=== PATIENT | female | born 1970 | race Caucasian/White ===

== ENCOUNTER 2018-02-19 21:14 | Emergency (ER) | payer OTHER ==
[~2018-02-19] VITALS: Ht 170.2 cm; Wt 154.2 kg
--- OUTSIDE RECORDS SUMMARY | 2018-02-19 21:20 | XMS REPORT ---
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 Info Not Available Non Drug Allergy Problems Problem Type Condition Code Onset Dates Condition Status Assessment Exercise counseling Z71.89 Active Assessment Hyperlipemia E78.5 Active Assessment Chronic pain G89.29 Active Problem Hyperlipemia E78.5 Active Problem Chronic pain G89.29 Active Problem Morbid obesity E66.01 Active Assessment Morbid obesity E66.01 Active Assessment Viral syndrome B34.9 Active Problem Depression with anxiety F41.8 Active Problem GERD (gastroesophageal reflux disease) K21.9 Active Assessment Fever blister B00.1 Active Assessment Dietary counseling Z71.3 Active Assessment Depression with anxiety F41.8 Active Assessment GERD (gastroesophageal reflux disease) K21.9 Active Assessment Cough R05 Active Medications Medication Code System Code Instructions Start Date End Date Status Dosage Cymbalta [facility] [address]-93 60 mg 1 capsule by Oral route 1 time per day ProAir HFA [facility] [place] [address]-82 108 (90 Base) MCG/ACT Inhalation every 4 hrs Aug 30, 2015 2 puffs as needed Klonopin [facility] [place] [address]-17 0.5 MG Orally Once a day, PRN 1 tablet Omeprazole [facility] [place] [address]-33 40 MG Orally Once a day 1 capsule Simvastatin [facility] [place] [address]-87 20 MG Orally Once a day. March 08, 2015 1 tablet in the evening Ibuprofen [facility] [place] [address]-77 800 MG Orally Three times a day as needed take 1 tablet PredniSONE [facility] [place] [address]-85 20 MG Orally Once a day Aug 30, 2015 Sep 06, 2015 3 tablet with food or milk Celexa [facility] [place] [address]-07 10 MG Orally Once a day 2 tablets Trazodone HCl [facility] [place] [address]-48 50 MG Orally Once a day 1 tablet at bedtime as needed Procedures Procedure Coding System Code Date ASSAY THYROID STIM HORMONE CPT-4 58314 Sep 06, 2015 COMPLETE CBC W/AUTO DIFF WBC CPT-4 19104 Sep 06, 2015 GLYCATED HEMOGLOBIN TEST CPT-4 62595 Sep 06, 2015 LIPID PANEL CPT-4 13913 Sep 06, 2015 COMPREHEN METABOLIC PANEL CPT-4 91818 Sep 06, 2015 Office Visit, Est Pt., Level 3 CPT-4 31764 Sep 06, 2015 VENIPUNCT, ROUTINE* CPT-4 43592 Sep 06, 2015 Vital Signs Date/Time: Sep 06, 2015 Temperature 99 F Weight 362 lbs Height 68 in BMI 55.04 Index Blood Pressure Diastolic 68 mmHg Blood Pressure Systolic 130 mmHg Cardiac Monitoring Heart Rate 82 bpm Results Name Result Date Reference Range Unit Abnormality Flag ROUTINE VENIPUNCTURE Summary Purpose eClinicalWorks Submission
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
--- OUTSIDE RECORDS SUMMARY | 2018-02-19 21:21 | XMS REPORT ---
Author Author AMANDA VASQUEZ [facility] eClinical[employer] Address Unknown Phone Unavailable Care Team Providers Care Recreation Leader Name Role Phone AMANDA VASQUEZ CP Unavailable Allergies, Adverse Reactions, Alerts Substance Reaction Event Type N.K.D.A. Info Not Available Non Drug Allergy Problems Problem Type Condition Code Onset Dates Condition Status Assessment Fever blister B00.1 Active Problem Hyperlipemia E78.5 Active Problem Chronic pain G89.29 Active Problem Morbid obesity E66.01 Active Assessment Viral syndrome B34.9 Active Assessment Cough R05 Active Problem Depression with anxiety F41.8 Active Problem GERD (gastroesophageal reflux disease) K21.9 Active Medications Medication Code System Code Instructions Start Date End Date Status Dosage Simvastatin [facility] [address]-89 20 MG Orally Once a day. March 08, 2015 1 tablet in the evening Omeprazole [facility] [address]-85 40 MG Orally Once a day 1 capsule Celexa [facility] [address]-42 10 MG Orally Once a day 2 tablets Cymbalta [facility] [address]-76 60 mg 1 capsule by Oral route 1 time per day Trazodone HCl [facility] [address]-82 50 MG Orally Once a day 1 tablet at bedtime as needed Ibuprofen [facility] [address]-24 800 MG Orally Three times a day as needed take 1 tablet Klonopin [facility] [address]-66 0.5 MG Orally Once a day, PRN 1 tablet PredniSONE [facility] [address]-11 20 MG Orally Once a day Aug 30, 2015 Sep 06, 2015 3 tablet with food or milk ProAir HFA [facility] [address]-79 108 (90 Base) MCG/ACT Inhalation every 4 hrs Aug 30, 2015 2 puffs as needed Procedures Procedure Coding System Code Date INFLUENZA ASSAY W/OPTIC CPT-4 78614 Aug 30, 2015 Office Visit, Est Pt., Level 3 CPT-4 26272 Aug 30, 2015 MEASURE BLOOD OXYGEN LEVEL CPT-4 70229 Aug 30, 2015 Vital Signs Date/Time: Aug 30, 2015 Temperature 98.6 F Weight 364.8 lbs Height 68 in Oximetry 98 % Blood Pressure Diastolic 78 mmHg Blood Pressure Systolic 122 mmHg Cardiac Monitoring Heart Rate 88 bpm BMI 55.46 Index Results Name Result Date Reference Range Unit Abnormality Flag INFLUENZA A & B (IN HOUSE) Summary Purpose eClinicalWorks Submission
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
--- OUTSIDE RECORDS SUMMARY | 2018-02-19 21:22 | XMS REPORT ---
Author JERICA Fraga [facility] eClinicalWorks Address Unknown Phone Unavailable Care Team Providers Care Drawing Tender Name Role Phone JERICA JACOBS CP Unavailable Allergies, Adverse Reactions, Alerts Substance Reaction Event Type N.K.D.A. Info Not Available Non Drug Allergy Problems Problem Type Condition Code Onset Dates Condition Status Assessment Dehydration E86.0 Active Assessment GERD (gastroesophageal reflux disease) K21.9 Active Assessment Diarrhea R19.7 Active Assessment Hyperlipemia E78.5 Active Problem Morbid obesity E66.01 Active Problem Hyperlipemia E78.5 Active Problem Metabolic syndrome E88.81 Active Problem GERD (gastroesophageal reflux disease) K21.9 Active Assessment Metabolic syndrome E88.81 Active Problem Chronic pain G89.29 Active Problem Depression with anxiety F41.8 Active Medications Medication Code System Code Instructions Start Date End Date Status Dosage Acidophilus [facility] [address]24 100 MG Orally 2 times a day Oct 03, 2015 Oct 08, 2015 as directed MetFORMIN HCl ER (MOD) [facility] [address]-94 500 MG Orally Once a day- week one take one tablet twice daily Oct 03, 2015 2 tablets with evening meal Cymbalta [facility] [address]-90 60 mg 1 capsule by Oral route 1 time per day Celexa [facility] [address]-02 10 MG Orally Once a day 2 tablets Simvastatin [facility] [address]-00 20 MG Orally Once a day. March 08, 2015 1 tablet in the evening Omeprazole [facility] [address]-42 40 MG Orally Once a day 1 capsule Klonopin [facility] [address]-26 0.5 MG Orally Once a day, PRN 1 tablet Trazodone HCl [facility] [address]-78 50 MG Orally Once a day 1 tablet at bedtime as needed Procedures Procedure Coding System Code Date Office Visit, Est Pt., Level 4 CPT-4 28676 Oct 03, 2015 Vital Signs Date/Time: Oct 03, 2015 Temperature 98.5 F Weight 365.4 lbs Height 68 in BMI 55.55 Index Blood Pressure Diastolic 72 mmHg Blood Pressure Systolic 108 mmHg Cardiac Monitoring Heart Rate 104 bpm Results No Known Results Summary Purpose eClinicalWorks Submission
--- OUTSIDE RECORDS SUMMARY | 2018-02-19 21:22 | XMS REPORT ---
Author Author VERONICA INIGUEZ [facility] [place] eClinicalWorks Address Unknown Phone Unavailable Care Team Providers Care Electroplater Apprentice Name Role Phone VERONICA INIGUEZ CP Unavailable Allergies, Adverse Reactions, Alerts Substance Reaction Event Type N.K.D.A. Info Not Available Non Drug Allergy Problems Problem Type Condition ICD-9 Code Onset Dates Condition Status Problem Cystocele without mention of uterine prolapse, midline 618.01 Active Problem Allergic rhinitis, cause unspecified 477.9 Active Problem Headache 784.0 Active Problem Hyperlipidemia 272.4 Active Problem Depression 311 Active Problem Asthma 493.90 Active Problem Unspecified peripheral vertigo 386.10 Active Problem Cervicalgia 723.1 Active Problem GERD (gastroesophageal reflux disease) 530.81 Active Problem Other dyspnea and respiratory abnormalities 786.09 Active Problem Anxiety state, unspecified 300.00 Active Problem Urge incontinence 788.31 Active Assessment Contact dermatitis 692.9 Active Problem Lumbago 724.2 Active Problem Chronic cholecystitis 575.11 Active Problem Unspecified hypertrophic and atrophic condition of skin 701.9 Active Medications Medication Code System Code Instructions Start Date End Date Status Dosage Albuterol Sulfate HFA [facility] [address]-63 108 (90 Base) MCG/ACT Inhalation every 4 hrs March 28, 2015 2 puffs as needed Ibuprofen [facility] [address]-56 800 MG Orally Three times a day as needed take 1 tablet Trazodone HCl [facility] [address]-46 50 MG Orally Once a day 1 tablet at bedtime as needed Albuterol Sulfate [facility] [address]-08 90 mcg/actuation 2 puffs by Inhalation route every 4-6 hours as needed PRN cough or wheezing Omeprazole [facility] [address]-02 40 MG Orally Once a day 1 capsule HydrOXYzine HCl [facility] [address]-12 25 MG Orally every 8 hrs Jul 04, 2015 1-2 tablet as needed Celexa [facility] [address]-31 10 MG Orally Once a day 2 tablets Klonopin [facility] [address]-96 0.5 MG Orally Once a day, PRN 1 tablet Cymbalta [facility] [address]-55 60 mg 1 capsule by Oral route 1 time per day Simvastatin [facility] [address]-17 20 MG Orally Once a day. March 08, 2015 1 tablet in the evening Medrol (Roderick) [facility] [address]-88 4 MG Orally as directed Jul 04, 2015 as directed Procedures Procedure Coding System Code Date Office Visit, Est Pt., Level 3 CPT-4 32980 Jul 04, 2015 Vital Signs Date/Time: Jul 04, 2015 Temperature 98 F Weight 363 lbs Height 68 in BMI 55.19 Index Blood Pressure Diastolic 72 mmHg Blood Pressure Systolic 122 mmHg Cardiac Monitoring Heart Rate 88 bpm Results No Known Results Summary Purpose eClinicalWorks Submission
--- OUTSIDE RECORDS SUMMARY | 2018-02-19 21:22 | XMS REPORT ---
Author GENE Henley [facility] eClinicalWorks Address Unknown Phone Unavailable Care Team Providers Care Importer Or Exporter Name Role Phone GENE VALERIO CP Unavailable Allergies, Adverse Reactions, Alerts Substance Reaction Event Type N.K.D.A. Info Not Available Non Drug Allergy Problems Problem Type Condition Code Onset Dates Condition Status Assessment History of panic attacks Z86.59 Active Problem GERD (gastroesophageal reflux disease) K21.9 Active Assessment Dizziness R42 Active Problem Headache R51 Active Problem Metabolic syndrome E88.81 Active Problem Neck pain M54.2 Active Problem Chronic pain G89.29 Active Problem Depression with anxiety F41.8 Active Problem Morbid obesity E66.01 Active Problem Hyperlipemia E78.5 Active Medications Medication Code System Code Instructions Start Date End Date Status Dosage Cymbalta [facility] [address]-97 60 mg 1 capsule by Oral route 1 time per day Trazodone HCl [facility] [address]-13 50 MG Orally Once a day 0.5 tablet at bedtime as needed Celexa [facility] [address]-95 10 MG Orally Once a day 2 tablets Simvastatin [facility] [address]-84 20 MG Orally Once a day. March 08, 2015 1 tablet in the evening Omeprazole [facility] [address]-09 40 MG Orally Once a day 1 capsule MetFORMIN HCl ER (MOD) [facility] [address]-40 500 MG Orally 2 times a day Sep 2 tablets with evening meal Klonopin [facility] [address]-34 0.5 MG Orally Once a day, PRN 1 tablet Procedures Procedure Coding System Code Date GLUCOSE BLOOD TEST CPT-4 62065 Nov 18, 2015 Office Visit, Est Pt., Level 3 CPT-4 05373 Nov 18, 2015 Vital Signs Date/Time: Nov 18, 2015 Temperature 99.0 F Weight 342.4 lbs Height 68 in BMI 52.06 Index Blood Pressure Diastolic 78 mmHg Blood Pressure Systolic 122 mmHg Cardiac Monitoring Heart Rate 102 bpm Results Name Result Date Reference Range Unit Abnormality Flag GLUCOSE FINGERSTICK (IN HOUSE) ----GLU FINGERSTICK 129 [id number] ----PC no [id number] ----Lot # [id number] ----Exp date 03/10/1620151118 Summary Purpose eClinicalWorks Submission
--- OUTSIDE RECORDS SUMMARY | 2018-02-19 21:23 | XMS REPORT ---
Author Author VERONICA INIGUEZ [facility] eClinicalWorks Address Unknown Phone Unavailable Care Team Providers Care Body Technician/Painter Name Role Phone VERONICA INIGUEZ CP Unavailable [...] Other dyspnea and respiratory abnormalities 786.09 Active Assessment Hyperlipidemia 272.4 Active Problem Anxiety state, unspecified 300.00 Active Problem Urge incontinence 788.31 Active Assessment GERD (gastroesophageal reflux disease) 530.81 Active Problem Lumbago 724.2 Active Problem Chronic cholecystitis 575.11 Active Problem Unspecified hypertrophic and atrophic condition of skin 701.9 Active Medications Medication Code System Code Instructions Start Date End Date Status Dosage Ibuprofen [facility] [address]-83 800 MG Orally Three times a day as needed take 1 tablet Albuterol Sulfate HFA [facility] [address]-74 108 (90 Base) MCG/ACT Inhalation every 4 hrs March 28, 2015 2 puffs as needed Klonopin [facility] [address]-02 0.5 MG Orally Once a day, PRN 1 tablet Trazodone HCl [facility] [address]-52 50 MG Orally Once a day 1 tablet at bedtime as needed Omeprazole [facility] [address]-66 40 MG Orally Once a day 1 capsule Simvastatin [facility] [address]-78 20 MG Orally Once a day. March 08, 2015 1 tablet in the evening Celexa [facility] [address]-15 10 MG Orally Once a day 2 tablets Cymbalta [facility] [address]-22 60 mg 1 capsule by Oral route 1 time per day Albuterol Sulfate [facility] [address]-87 90 mcg/actuation 2 puffs by Inhalation route every 4-6 hours as needed PRN cough or wheezing Procedures Procedure Coding System Code Date Office Visit, Est Pt., Level 3 CPT-4 56080 Jun 30, 2015 Vital Signs Date/Time: Jun 30, 2015 Temperature 98 F Weight 363 lbs Height 68 in BMI 55.19 Index Blood Pressure Diastolic 72 mmHg Blood Pressure Systolic 120 mmHg Cardiac Monitoring Heart Rate 80 bpm Results No Known Results Summary Purpose eClinicalWorks Submission
--- OUTSIDE RECORDS SUMMARY | 2018-02-19 21:23 | XMS REPORT ---
Author JERICA Fraga eClinicalWorks Address Unknown Phone Unavailable Care Team Providers Care Mold Filler And Drainer Name Role Phone JERICA JACOBS CP Unavailable Allergies, Adverse Reactions, Alerts Substance Reaction Event Type N.K.D.A. Info Not Available Non Drug Allergy Problems Problem Type Condition Code Onset Dates Condition Status Assessment Metabolic syndrome E88.81 Active Problem GERD (gastroesophageal reflux disease) K21.9 Active Assessment Neck pain M54.2 Active Assessment Diarrhea R19.7 Active Assessment Headache R51 Active Problem Headache R51 Active Problem Metabolic syndrome E88.81 Active Problem Neck pain M54.2 Active Problem Chronic pain G89.29 Active Problem Depression with anxiety F41.8 Active Problem Morbid obesity E66.01 Active Problem Hyperlipemia E78.5 Active Medications Medication Code System Code Instructions Start Date End Date Status Dosage Ibuprofen [facility] [address]-06 800 MG Orally Three times a day as needed take 1 tablet Simvastatin [facility] [address]-78 20 MG Orally Once a day. March 08, 2015 1 tablet in the evening Trazodone HCl [facility] [address]-47 50 MG Orally Once a day 1 tablet at bedtime as needed Celexa [facility] [address]-35 10 MG Orally Once a day 2 tablets Klonopin [facility] [address]-39 0.5 MG Orally Once a day, PRN 1 tablet Omeprazole [facility] [address]-67 40 MG Orally Once a day 1 capsule MetFORMIN HCl ER (MOD) [facility] [address]-46 500 MG Orally 2 times a day Sep 2 tablets with evening meal Cymbalta [facility] [address]-75 60 mg 1 capsule by Oral route 1 time per day Procedures Procedure Coding System Code Date Office Visit, Est Pt., Level 3 CPT-4 11250 Nov 04, 2015 Vital Signs Date/Time: Nov 04, 2015 Temperature 99.3 F Weight 361.3 lbs Height 68 in BMI 54.93 Index Blood Pressure Diastolic 72 mmHg Blood Pressure Systolic 118 mmHg Cardiac Monitoring Heart Rate 94 bpm Results No Known Results Summary Purpose eClinicalWorks Submission
--- OUTSIDE RECORDS SUMMARY | 2018-02-19 21:23 | XMS REPORT ---
Author Author VERONICA INIGUEZ [facility] Address [address] [place] [address] Care Team Providers Care Attendant Sales Name Role Phone VERONICA INIGUEZ Unavailable PROBLEMS Type Condition ICD9-CM Code TLN40-RC Code Onset Dates Condition Status SNOMED Code Problem Neck pain M54.2 Active 24806951 Problem Myalgia M79.1 Active 39031112 Problem Anxiety associated with depression F41.8 Active 841185092 Problem Intractable migraine with aura without status migrainosus G43.119 Active 715179546 Problem Radiculopathy of lumbar region M54.16 Active 246567176 Problem Plantar fasciitis M72.2 Active 825249864 Problem Lumbago with sciatica, left side M54.42 Active 527111389 Problem 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 Active 64233117 Problem Spinal stenosis of lumbar region M48.06 Active 67322760 Problem Morbid obesity E66.01 Active 841377520 Problem Chronic pain G89.29 Active 21149600 Problem GERD (gastroesophageal reflux disease) K21.9 Active 264058929 Problem Hyperlipemia E78.5 Active 36523829 Problem Metabolic syndrome E88.81 Active 986580920 Problem Depression with anxiety F41.8 Active 177061199 Problem Headache R51 Active 20009219 ALLERGIES No Known Allergies SOCIAL HISTORY Never Assessed PLAN OF CARE Activity Details Follow Up 4 Weeks Reason:myalgia VITAL SIGNS Height 68 in 2016-12-04 Weight 360.4 lbs 2016-12-04 BMI 54.79 kg/m2 2016-12-04 MEDICATIONS Medication Instructions Dosage Frequency Start Date End Date Duration Status Trazodone HCl 50 MG Orally Once a day 0.5 tablet at bedtime as needed 24h Active Diclofenac Sodium 75 MG Orally Twice a day 1 tablet with food or milk 12h 14 Nov, 2016 Dec, 30 day(s) Active Omeprazole 40 mg Orally Once a day 1 capsule 24h Active Duloxetine HCl 60 mg Orally Once a day 1 capsule 24h 15 Apr, 2016 Active MetFORMIN HCl ER (MOD) 500 MG Orally 2 times a day 2 tablets with evening meal 12h Sep, Active Simvastatin 20 mg Orally Once a day. 1 tablet in the evening February, Active RESULTS No Results PROCEDURES Procedure Date Ordered Result Body Site COMPREHEN METABOLIC PANEL Dec 04, 2016 COMPLETE CBC W/AUTO DIFF WBC Dec 04, 2016 C-REACTIVE PROTEIN Dec 04, 2016 VENIPUNCT, ROUTINE* Dec 04, 2016 RBC SED RATE, AUTOMATED Dec 04, 2016 ASSAY THYROID STIM HORMONE Dec 04, 2016 ANTINUCLEAR ANTIBODIES Dec 04, 2016 RHEUMATOID FACTOR, QUANT Dec 04, 2016 IMMUNIZATIONS No Known Immunizations MEDICAL (GENERAL) HISTORY Type Description Date Medical [...] up by son 11/[address] [facility] for headache 05/28/17
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
--- OUTSIDE RECORDS SUMMARY | 2018-02-19 21:24 | XMS REPORT ---
Author LUIS A Prado [facility] eClinicalWorks Address Unknown Phone Unavailable Care Team Providers Care Crystal Machining Coordinator Name Role Phone LUIS A OBREGON CP Unavailable Allergies No Known Allergies Problems Problem Type Condition Code Onset Dates Condition Status Problem Depression with anxiety F41.8 Active Problem GERD (gastroesophageal reflux disease) K21.9 Active Problem Neck pain M54.2 Active Problem Headache R51 Active Problem Anxiety associated with depression F41.8 Active Problem Hyperlipemia E78.5 Active Problem Chronic pain G89.29 Active Problem Metabolic syndrome E88.81 Active Problem Morbid obesity E66.01 Active Medications No Known Medications Results No Known Results Summary Purpose eClinicalWorks Submission
--- OUTSIDE RECORDS SUMMARY | 2018-02-19 21:24 | XMS REPORT ---
Author JERICA Fraga [facility] eClinicalWorks Address Unknown Phone Unavailable Care Team Providers Care Freight Rate Clerk Name Role Phone JERICA JACOBS CP Unavailable Allergies, Adverse Reactions, Alerts Substance Reaction Event Type N.K.D.A. Info Not Available Non Drug Allergy Problems Problem Type Condition Code Onset Dates Condition Status Assessment Chronic pain G89.29 Active Assessment Dietary counseling Z71.3 Active Assessment Hyperlipemia E78.5 Active Assessment GERD (gastroesophageal reflux disease) K21.9 Active Assessment Depression with anxiety F41.8 Active Problem Hyperlipemia E78.5 Active Problem Chronic pain G89.29 Active Problem Morbid obesity E66.01 Active Assessment Morbid obesity E66.01 Active Assessment Exercise counseling Z71.89 Active Problem Depression with anxiety F41.8 Active Problem GERD (gastroesophageal reflux disease) K21.9 Active Medications Medication Code System Code Instructions Start Date End Date Status Dosage Omeprazole [facility] [address]-08 40 MG Orally Once a day 1 capsule Cymbalta [facility] [address]-69 60 mg 1 capsule by Oral route 1 time per day Trazodone HCl [facility] [address]-17 50 MG Orally Once a day 1 tablet at bedtime as needed Ibuprofen [facility] [address]-82 800 MG Orally Three times a day as needed take 1 tablet Klonopin [facility] [address]-69 0.5 MG Orally Once a day, PRN 1 tablet Simvastatin [facility] [address]-52 20 MG Orally Once a day. March 08, 2015 1 tablet in the evening Celexa [facility] [address]-47 10 MG Orally Once a day 2 tablets Procedures Procedure Coding System Code Date Office Visit, Est Pt., Level 4 CPT-4 88870 Aug 26, 2015 Vital Signs Date/Time: Aug 26, 2015 Temperature 98.5 F Weight 364 lbs Height 68 in BMI 55.34 Index Blood Pressure Diastolic 86 mmHg Blood Pressure Systolic 126 mmHg Cardiac Monitoring Heart Rate 72 bpm Results No Known Results Summary Purpose eClinicalWorks Submission
--- OUTSIDE RECORDS SUMMARY | 2018-02-19 21:24 | XMS REPORT ---
Author KWASI Landry [facility] eClinicalWorks Address Unknown Phone Unavailable Care Team Providers Care Manager Fire Name Role Phone KWASI LARSON CP Unavailable Allergies No Known Allergies Problems Problem Type Condition Code Onset Dates Condition Status Problem GERD (gastroesophageal reflux disease) K21.9 Active Assessment Carpal tunnel syndrome of left wrist G56.02 Active Problem Headache R51 Active Problem Metabolic syndrome E88.81 Active Problem Neck pain M54.2 Active Problem Chronic pain G89.29 Active Problem Depression with anxiety F41.8 Active Problem Morbid obesity E66.01 Active Problem Hyperlipemia E78.5 Active Medications No Known Medications Procedures Procedure Coding System Code Date Office Visit, Est Pt., Level 3 CPT-4 15580 April 19, 2016 Vital Signs Date/Time: April 19, 2016 Blood Pressure Diastolic 84 mmHg Blood Pressure Systolic 124 mmHg Height 68 in Results No Known Results Summary Purpose eClinicalWorks Submission
--- OUTSIDE RECORDS SUMMARY | 2018-02-19 21:24 | XMS REPORT ---
Author Author AMANDA VASQUEZ [facility] eClinicalWorks Address Unknown Phone Unavailable Care Team Providers Care Principal Embedded Software Engineer Name Role Phone AMANDA VASQUEZ CP Unavailable Allergies, Adverse Reactions, Alerts Substance Reaction Event Type N.K.D.A. Info Not Available Non Drug Allergy Problems Problem Type Condition Code Onset Dates Condition Status Assessment Dehydration E86.0 Active Assessment Headache R51 Active Problem Morbid obesity E66.01 Active Problem Hyperlipemia E78.5 Active Problem Metabolic syndrome E88.81 Active Problem GERD (gastroesophageal reflux disease) K21.9 Active Assessment Diarrhea R19.7 Active Problem Chronic pain G89.29 Active Problem Depression with anxiety F41.8 Active Medications Medication Code System Code Instructions Start Date End Date Status Dosage Cymbalta [facility] [address]-31 60 mg 1 capsule by Oral route 1 time per day Klonopin [facility] [address]-27 0.5 MG Orally Once a day, PRN 1 tablet Celexa [facility] [address]-62 10 MG Orally Once a day 2 tablets Simvastatin [facility] [address]-97 20 MG Orally Once a day. March 08, 2015 1 tablet in the evening MetFORMIN HCl ER (MOD) [facility] [address]-29 500 MG Orally Once a day- week one take one tablet twice daily Oct 03, 2015 2 tablets with evening meal Ibuprofen [facility] [address]-15 800 MG Orally Three times a day as needed take 1 tablet Trazodone HCl [facility] [address]-14 50 MG Orally Once a day 1 tablet at bedtime as needed Omeprazole [facility] [address]-29 40 MG Orally Once a day 1 capsule Procedures Procedure Coding System Code Date HYDRATE IV INFUSION, ADD-ON CPT-4 30051 Oct 25, 2015 Office Visit, Est Pt., Level 4 CPT-4 10614 Oct 25, 2015 HYDRATION IV INFUSION, INIT CPT-4 49587 Oct 25, 2015 THER/PROPH/DIAG INJ, SC/IM CPT-4 37371 Oct 25, 2015 PHENERGAN (IM) 25 MG (25 MG/ML) CPT-4 J2550 Oct 25, 2015 Vital Signs Date/Time: Oct 25, 2015 Temperature 97.3 F Weight 365.4 lbs Height 68 in BMI 55.55 Index Blood Pressure Diastolic 76 mmHg Blood Pressure Systolic 120 mmHg Cardiac Monitoring Heart Rate 79 bpm Results Name Result Date Reference Range Unit Abnormality Flag IV INFUSION, ADD-ON IV INFUSION Summary Purpose eClinicalWorks Submission
--- OUTSIDE RECORDS SUMMARY | 2018-02-19 21:24 | XMS REPORT ---
Author LUIS A Praod [facility] eClinicalWorks Address Unknown Phone Unavailable Care Team Providers Care Mask Inspector Name Role Phone LUIS A OBREGON CP Unavailable Allergies, Adverse Reactions, Alerts Substance Reaction Event Type N.K.D.A. Info Not Available Non Drug Allergy Problems Problem Type Condition Code Onset Dates Condition Status Assessment Dental examination Z01.20 Active Problem Depression with anxiety F41.8 Active Problem GERD (gastroesophageal reflux disease) K21.9 Active Problem Neck pain M54.2 Active Problem Headache R51 Active Problem Anxiety associated with depression F41.8 Active Problem Hyperlipemia E78.5 Active Problem Chronic pain G89.29 Active Problem Metabolic syndrome E88.81 Active Problem Morbid obesity E66.01 Active Medications Medication Code System Code Instructions Start Date End Date Status Dosage Ibuprofen [facility] 43584904946 800 MG Orally Three times a day as needed take 1 tablet Duloxetine HCl [facility] [address]-60 60 mg Orally Once a day May 04, 2016 1 capsule Trazodone HCl [facility] [address]-73 50 MG Orally Once a day 0.5 tablet at bedtime as needed Omeprazole [facility] [address]-27 40 mg Orally Once a day 1 capsule MetFORMIN HCl ER (MOD) [facility] [address]-43 500 MG Orally 2 times a day Sep 2 tablets with evening meal Topamax [facility] [address]-26 50 mg Orally Twice a day May 04, 2016 1 tablet Simvastatin [facility] [address]-91 20 mg Orally Once a day. March 08, 2015 1 tablet in the evening Procedures Procedure Coding System Code Date INTRAORL-PERIAPICAL 1 FILM 63066 CPT-4 D0220 Aug 20, 2016 LTD ORAL EVALUATION - PROBLEM FOCUS CPT-4 D0140 Aug 20, 2016 Vital Signs Date/Time: Aug 20, 2016 Blood Pressure Diastolic 87 mmHg Blood Pressure Systolic 130 mmHg Height 68 in Results No Known Results Summary Purpose eClinicalWorks Submission
--- OUTSIDE RECORDS SUMMARY | 2018-02-19 21:24 | XMS REPORT ---
Author JREICA Fraga eClinicalWorks Address Unknown Phone Unavailable Care Team Providers Care Blow Pit Helper Name Role Phone JERICA JACOBS CP Unavailable Allergies, Adverse Reactions, Alerts Substance Reaction Event Type N.K.D.A. Info Not Available Non Drug Allergy Problems Problem Type Condition Code Onset Dates Condition Status Assessment Upper respiratory tract infection, unspecified type J06.9 Active Problem Depression with anxiety F41.8 Active Problem GERD (gastroesophageal reflux disease) K21.9 Active Assessment Tinea pedis of left foot B35.3 Active Assessment Encounter for immunization Z23 Active Problem Neck pain M54.2 Active Problem Headache R51 Active Problem Anxiety associated with depression F41.8 Active Problem Hyperlipemia E78.5 Active Problem Chronic pain G89.29 Active Problem Metabolic syndrome E88.81 Active Problem Morbid obesity E66.01 Active Medications Medication Code System Code Instructions Start Date End Date Status Dosage Topamax [facility] [address]-82 50 mg Orally Twice a day May 04, 2016 1 tablet Duloxetine HCl [facility] [address]-84 60 mg Orally Once a day May 04, 2016 1 capsule Ibuprofen [facility] 50082265844 800 MG Orally Three times a day as needed take 1 tablet Naftin [facility] [address]-99 2 % Externally Once a day Sep 14, 2016 Nov 13, 2016 1 application to affected area MetFORMIN HCl ER (MOD) [facility] [address]-76 500 MG Orally 2 times a day Sep 2 tablets with evening meal Simvastatin [facility] [address]-69 20 mg Orally Once a day. March 08, 2015 1 tablet in the evening Omeprazole [facility] [address]-71 40 mg Orally Once a day 1 capsule Trazodone HCl [facility] [address]-57 50 MG Orally Once a day 0.5 tablet at bedtime as needed Procedures Procedure Coding System Code Date FLUARIX QUAD P-FREE 3 AND UP .50 2015 CPT-4 83476 Sep 14, 2016 SINGLE IMMUNIZATION ADMIN CPT-4 79406 Sep 14, 2016 Office Visit, Est Pt., Level 3 CPT-4 86395 Sep 14, 2016 Vital Signs Date/Time: Sep 14, 2016 Cardiac Monitoring Heart Rate 96 bpm Weight 356.1 lbs Height 68 in BMI 54.14 Index Blood Pressure Diastolic 72 mmHg Blood Pressure Systolic 126 mmHg Results No Known Results Immunizations Vaccine Administration Date FLUARIX QUAD P-FREE 3 AND UP .50 2015Sep 14, 2016 Summary Purpose eClinicalWorks Submission
--- OUTSIDE RECORDS SUMMARY | 2018-02-19 21:24 | XMS REPORT ---
Author JERICA Fraga [facility] eClinicalWorks Address Unknown Phone Unavailable Care Team Providers Care Airplane Electrician Name Role Phone JERICA JACOBS CP Unavailable Allergies No Known Allergies Problems Problem Type Condition Code Onset Dates Condition Status Problem GERD (gastroesophageal reflux disease) K21.9 Active Problem Headache R51 Active Problem Metabolic syndrome E88.81 Active Problem Neck pain M54.2 Active Problem Chronic pain G89.29 Active Problem Depression with anxiety F41.8 Active Problem Morbid obesity E66.01 Active Problem Hyperlipemia E78.5 Active Medications No Known Medications Results No Known Results Summary Purpose eClinicalWorks Submission
--- OUTSIDE RECORDS SUMMARY | 2018-02-19 21:24 | XMS REPORT ---
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 Active 33343471 Problem Carpal tunnel syndrome of right wrist G56.01 Active 81274319 Problem Hyperlipemia E78.5 Active 52745253 Problem BMI 50.0-59.9, adult Z68.43 Active 238050373 Problem Morbid obesity E66.01 Active 986227584 Problem Controlled type 2 diabetes mellitus without complication, without long -term current use of insulin E11.9 Active 656908021 Problem Intractable migraine with aura without status migrainosus G43.119 Active 510791610 Problem Acne rosacea L71.9 Active 130894073 Problem Neuropathic arthropathy M14.60 Active 45456320 Problem GERD (gastroesophageal reflux disease) K21.9 Active 052352875 Problem Metabolic syndrome E88.81 Active 929542819 Problem Depression with anxiety F41.8 Active 331009502 Problem Chronic pain G89.29 Active 46772524 Problem Anxiety associated with depression F41.8 Active 002251794 Problem Myalgia M79.1 Active 82291165 Problem Headache R51 Active 84596240 Problem Lumbago with sciatica, left side M54.42 Active 465383640 Problem Neck pain M54.2 Active 53555017 Problem Plantar fasciitis M72.2 Active 007427139 ALLERGIES No Information ENCOUNTERS Encounter Location Date Diagnosis [address] [id number] [id number] February, [place] [id number] [id number] Jan, BMI 50.0-59.9, adult Z68.43 ; Controlled type 2 diabetes mellitus without complication, without long-term current use of insulin E11.9 and Neuropathic arthropathy M14.60 [facility] [id number] [id number] Dec, Carpal tunnel syndrome of right wrist G56.01 and 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 [facility] [id number][place] [id number] Dec, BMI 50.0-59.9, adult Z68.43 ; Acne rosacea L71.9 ; Neuropathic arthropathy M14.60 and GERD (gastroesophageal reflux disease) K21.9 [facility] [address] [place] [address] [id number] Nov, [place] [id number] [place] [address] [id number] Nov, Infective urethritis N34.2 [place] [id number] [place] [address] [id number] Nov, Skin tag L91.8 and BMI 50.0-59.9, adult Z68.43 [facility] [address]00565100[place] [address] Oct, Neuropathic arthropathy M14.60 [address] [place] [address] [id number] Oct, 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 [address] [place] [address] [id number] Sep, Radiculopathy of lumbar region M54.16 and Neuropathic arthropathy M14.60 [facility] [address] [place] [address] [id number] Sep, Controlled type 2 diabetes mellitus without complication, without long- term current use of insulin E11.9 [place] [id number] [place] [address] [id number] Sep, Controlled type 2 diabetes mellitus without complication, without long- term current use of insulin E11.9 [address] [place] [address] [id number] Sep, [place] [id number] [place] [address] [id number] Sep, 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 ; Neuropathic arthropathy M14.60 and BMI 50.0-59.9, adult Z68.43 [address] [place] [address] [id number] Sep, Controlled type 2 diabetes mellitus without complication, without long- term current use of insulin E11.9 ; Dysuria R30.0 ; 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 and Morbid obesity E66.[address] [id number] [place] [id number] Aug, [address] [place] [address] [id number] Jul, Morbid obesity E66.01 [facility] [address] [address] Jul, Morbid obesity E66.01 [address] [id number] Jul, Morbid obesity E66.01 ; Encounter for immunization Z23 ; Insect bite ( nonvenomous), left ankle, initial encounter S90.562A ; Bitten or stung by nonvenomous insect and other nonvenomous arthropods, initial encounter W57.XXXA and Acute cystitis without hematuria N30.[address] [place] [address] [id number] Jun, GERD (gastroesophageal reflux disease) K21.9 [place] [id number] [place] [address] [id number] Jun, [place] [id number] [place] [address] [id number] Jun, Morbid obesity E66.01 [facility] [id number] [place] [address] [id number] May, [facility] [address] [id number] [place] [address] [id number] May, [facility] [id number] [place] [address] [id number] May, Intractable migraine with aura without status migrainosus G43.119 and Vertigo R42 [facility] [address] [id number] [place] [address]- [address]229 Apr, [facility] [id number] [place] [address] [id number] Apr, Radiculopathy of lumbar region M54.16 ; 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 ; Morbid obesity E66.01 ; Depression with anxiety F41.8 ; Metabolic syndrome E88.81 and GERD ( gastroesophageal reflux disease) K21.9 [facility] [id number] [place] [address] [id number] February, [facility] [id number] [place] [address] [id number] February, Spinal stenosis of lumbar region M48.06 and Anxiety associated with depression F41.8 [facility] [id number] [place] [address] [id number] February, Anxiety associated with depression F41.8 [facility] [id number] [place] [address] [id number] February, Low back pain M54.5 [facility] [id number] [place] [address] [id number] February, Low back pain M54.5 and Myalgia M79.1 [facility] [address] [id number] [place] [address] [id number] Jan, [facility] [id number] [place] [address] [id number] Jan, Anxiety associated with depression F41.8 [facility] [id number] [place] [address] 390514- 1555 Jan, [address] [id number] [place] [id number] Jan, Metabolic syndrome E88.81 [facility] [address]00565100[place] [id number] Jan, Lumbago with sciatica, left side M54.42 and Plantar fasciitis M72.2 [place] [address] [place] [id number] [place] [address] 37[address]- 5446 Dec, [address] [place] [address] [id number] Dec, Myalgia M79.1 and Anxiety associated with depression F41.8 [address] [id number] 14 Nov, 2016 Myalgia M79.[address] [id number] [place] [id number] Aug, [address]00565100[place] [id number] Aug, Upper respiratory tract infection, unspecified type J06.9 ; Encounter for immunization Z23 and Tinea pedis of left foot B35.3 [place] [address]00565100[place] Aug, [place] [address] [place] [id number] [place] [address] 309650- 4746 Jul, Dental examination Z01.[address] [id number] [place] [id number] Apr, Anxiety associated with depression F41.[address] [id number] [place] [id number] Apr, Depression with anxiety F41.8 ; Morbid obesity E66.01 ; GERD ( gastroesophageal reflux disease) K21.9 ; Metabolic syndrome E88.81 and Headache R51 [address] [id number] [place] [id number] Apr, [address] [id number][place] [id number] Apr, Carpal tunnel syndrome of left wrist G56.02 and Muscle spasm M62.838 [facility] [address] [facility] [id number] [address] Mar, Carpal tunnel syndrome of left wrist G56.[address] [id number] H[place], [place] [id number] Mar, Left elbow pain M25.522 [facility] [address] [facility] [id number] [place] 2875[place]- [address] February, Dental examination Z01.20 [facility] [address] [id number] [place] [id number] February, Acute pain of left shoulder M25.512 ; Left elbow pain M25.522 ; Renal insufficiency N28.9 and Metabolic syndrome E88.[address] [id number], [place] [id number] February, [facility] [address] [id number] [place] [id number] February, Neck pain M54.2 ; Metabolic syndrome E88.81 ; Morbid obesity E66.01 ; Bilateral headaches R51 and Dizziness R42 [address] [id number] [place] 114107750 Oct, Dizziness R42 and History of panic attacks Z86.59 [facility] [address] [id number] [place] 701[address] Oct, Neck pain M54.2 ; Metabolic syndrome E88.81 ; Headache R51 [address] [facility] [address] [id number] [place] [id number] Oct, [address] [id number], [place] 704158024 Oct, Diarrhea R19.7 ; Dehydration E86.0 and Headache R51 [address] [id number] [place] 159741485 Sep, Metabolic syndrome E88.81 ; GERD (gastroesophageal reflux disease ) K21.9 ; Diarrhea R19.7 ; Dehydration E86.0 and Hyperlipemia E78.[address] [id number] [place] [id number] Aug, [address] [place] [address] [id number] Aug, Morbid obesity E66.01 ; Viral syndrome B34.9 ; Hyperlipemia E78.5 ; Chronic pain G89.29 ; Exercise counseling Z71.89 ; Cough R05 ; Depression with anxiety F41.8 ; Dietary counseling Z71.3 ; Fever blister B00.1 and GERD ( gastroesophageal reflux disease) K21.9 [place] [id number] [place] [address] [id number] Aug, Viral syndrome B34.9 ; Cough R05 and Fever blister B00.[address] [id number] [place] [id number] Aug, Morbid obesity E66.01 ; Exercise counseling Z71.89 ; Dietary counseling Z71.3 ; Hyperlipemia E78.5 ; Chronic pain G89.29 ; Depression with anxiety F41.8 and GERD (gastroesophageal reflux disease) K21.9 [place] [id number] [id number] Jun, Contact dermatitis 692.9 [address] [place] [address] [id number] Jun, GERD (gastroesophageal reflux disease) 530.81 and Hyperlipidemia 272.[address] [place] [address] [id number] May, Hyperlipidemia 272.4 and Headache 784.0 [address] [place] [address] [id number] Mar, [address] [place] [address] [id number] Mar, Asthma 493.90 [place] [id number] [address] Mar, [facility] [address] [place] [address] [id number] February, Suspicious nevus 238.2 [facility] [id number] [place] [address] [id number] February, Depression 311 and Hyperlipidemia 272.4 [facility] [address] [place] [address] [id number] February, [facility] [place] [id number] [place] [address] [id number] February, Anxiety state 300.00 ; Screening for lipid disorders V77.91 ; Screening for hypothyroidism V77.0 and Depressive disorder, not elsewhere classified [address] [facility] [place] [id number] [place] [address] [id number] Jan, Anxiety state, unspecified 300.00 ; Depression 311 and Headache 784.0 [facility] [place] [id number] [place] [address] [id number] Jan, [facility] [address] [id number] [place] [address] 80812- 2795 Jan, [facility] [address] [address]- 1188 Jan, [facility] [address] [id number] [place] [address] 45907- 7378 Nov, [facility] [address] [place] [address] [id number] Nov, [facility] [place] [id number] [place] [address] [id number] Nov, [facility] [address] [id number] [place] [address] 29061 [id number] Nov, [facility] [address] [place] [address] [id number] Nov, [facility] [address] [id number] [place] [address] 16512 2546 Nov, [facility] [place] [id number] [place] [address] [id number] Oct, [facility] [place] [facility] [address] [id number] [address]- 2516 Oct, [facility] [place] [address] [facility] [id number], [place] [id number] Sep, [facility] [place] [facility] [address] [facility] [id number] [place] [address]- 0766 Sep, [facility] [place] [address] [id number] [id number] Jul, [facility] [place] [facility] [address] [facility] [id number] [place] [address]- 9469 Jul, [facility] [place] [address] [facility] [id number], [place] [id number] Jul, [facility] [place] [facility] [address] [facility] [id number] [place] [address]- 5441 Jul, [facility] [place] [facility] [address] [facility] [id number] [place] [address]- 8725 Jul, [facility] [place] [address] [id number], [place] [id number] Jul, [facility] [place] [address] [facility] [id number], [place] [id number] Jul, [facility] [place] [facility] [address] [facility] [id number] [address]- 4353 Jul, [facility] [place] [address] [facility] [id number], [place] [id number] Jun, [facility] [place] [facility] [address] [facility] [id number] [place] [address]- 6298 Jun, [facility] [place] [address] [facility] [id number], [place] [id number] May, [facility] [place] [facility] [address] [facility] [id number] [place] [address]- 3652 May, [facility] [place] [facility] [address] [facility] [id number] [address]- 2766 Apr, [facility] [place] [address] [id number] [place] [id number] Apr, [facility] [place] [facility] [address] [id number] [place] [address]- 2546 Apr, [facility] [place] [address] [id number] [place] [id number] Mar, [facility] [place] [facility] [address] [facility] [id number] [place] [address]- 2546 Mar, [facility] [place] [address] [id number] [place] [id number] Mar, [facility] [address] [id number] [place] [id number] Mar, [facility] [place] [facility] [address] [facility] [id number] [place] [address]- 2546 Mar, [facility] [place] [facility] [address] [place] [address]- 2546 Mar, [facility] [place] [address] [facility] [id number], [place] [id number] February, [facility] [place] [facility] [address] [facility] [id number] [place] [address]- 5616 February, [facility] [address] [facility] [id number] [place] [id number] February, [facility] [place] [facility] [address] [place] [address] [id number] [address]- 5916 February, [facility] [place] [address] [facility] [id number], [place] [id number] Jan, [facility] [place] [facility] [address] [facility] [id number] [place] [address]- 2546 Jan, [facility] [place] [address] [facility] [id number] [place] [id number] Dec, [facility] [place] [facility] [address] [facility] [id number] [place] [address]- 2546 Dec, [facility] [place] [address] [id number] [place] [id number] Dec, [facility] [place] [facility] [address] [facility] [id number] [address]- 2546 Dec, [facility] [place] [address] [id number] [place] [id number] Dec, [facility] [place] [address] [facility] [id number] [place] [id number] Dec, [facility] [place] [facility] [address] [facility] [id number] [place] [address]- 2546 Dec, [facility] [place] [facility] [address] [facility] [id number] [place] [address]- 5186 Dec, [facility] [place] [address] [facility] [id number] [place] [id number] Nov, [facility] [place] [facility] [address] [facility] [id number] [place] [address]- 1006 Nov, [facility] [place] [address] [place] [address] [id number] [id number] Oct, [facility] [place] [facility] [address] [facility] [id number] [place] [address]- 6762 Oct, [facility] [place] [facility] [address] [facility] [id number] [place] [address]- 3672 Sep, [facility] [place] [facility] [address] [facility] [id number] [place] [address]- 4373 Sep, [facility] [place] [address] [facility] [id number], [place] 320376464 Sep, [facility] [place] [facility] [address] [facility] [id number] [place] [address]- 6276 Sep, [facility] [place] [address] [facility] [id number], [place] [id number] Aug, [facility] [place] [facility] [address] [facility] [id number] [address]- 1136 Aug, [facility] [place] [facility] [address] [facility] [id number] [place] [address]- 1746 Jul, [facility] [place] [facility] [address] [facility] [id number] [address]- 2472 Jul, [facility] [address] [id number] [address]- 6894 Jul, [facility] [place] [address] [id number], [place] [id number] Jul, [facility] [address] [facility] [id number] [place] [address]- 8787 Jul, [facility] [place] [facility] [address] [facility] [id number] [place] [address]- 2106 Jul, [facility] [place] [facility] [address] [facility] [id number] [place] [address]- 2608 Jul, [facility] [place] [address] [facility] [id number], [place] [id number] Jul, [facility] [address] [id number] [address]- 8586 Jul, [facility] [address] [id number], [place] [id number] Jun, [facility] [place] [address] [facility] [id number], [place] [id number] May, [facility] [place] [facility] [address] [facility] [id number] [place] [address]- 8012 May, [facility] [place] [facility] [address] [facility] [id number] [place] [address]- 0179 May, [facility] [place] [facility] [address] [facility] [id number] [address]- 4199 May, [facility] [place] [facility] [address] [facility] [id number] [place] [address]- 7121 May, [facility] [address] [id number], [place] [id number] May, [facility] [address] [id number], [place] [id number] May, [facility] [address] [facility] [id number], [place] [id number] Apr, [facility] [place] [facility] [address] [facility] [id number] [place] [address]- 4346 Mar, [facility] [address] [id number] [place] [id number] Mar, [facility] [address] [id number] [place] [id number] February, [facility] [place] [facility] [address] [facility] [id number] [place] [address]- 4336 February, [facility] [place] [address] [id number] [place] [id number] February, [facility] [place] [address] [id number] [place] [id number] Jan, [facility] [place] [address] [id number] [place] [id number] Jan, [facility] [address] [id number] [place] [id number] Dec, [facility] [address] [id number] [place] [id number] Dec, [facility] [address]00565100[place] [address]- 6076 Nov, [facility] [address]00565100[place] [address]- 6456 Nov, [facility] [address] [id number] [place] [id number] Oct, [facility] [address] [id number] [place] [id number] Oct, [facility] [address] [id number] [place] [id number] Sep, [facility] [place] [facility] [address] [facility] [id number] [address] Sep, [facility] [address] [facility] [id number] [place] [id number] Aug, [facility] [address] [facility] [id number] [place] [address] Aug, [facility] [id number] [address] May, [facility] [address] [id number] [place] [id number] May, [facility] [address] [id number] [place] [id number] May, [facility] [address] [facility] [id number] [place] [address] Apr, [facility] [address] [id number] [place] [id number] Apr, [facility] [address] [id number] [place] [id number] Apr, [facility] [address] [id number] [place] [id number] Apr, [facility] [address] [id number] [place] [id number] Mar, [facility] [address] [id number] [place] [id number] Mar, [facility] [address] [id number] [address] Mar, [facility] [address] [facility] [id number] [place] [address] February, [facility] [address] [id number] [place] [id number] February, [facility] [address] [id number] [place] [id number] February, [facility] [address] [id number] [place] [id number] Dec, [facility] [address] [id number] [place] [id number] Dec, [facility] [address] [id number] [place] [id number] Dec, [facility] [address] [id number] [place] [id number] Dec, [facility] [address] [id number] [place] [id number] Dec, [facility] [address] [id number] [place] [id number] Dec, [facility] [address] [id number] [place] [id number] Dec, [facility] [address] [id number] [place] [id number] Nov, [facility] [address] [facility] [id number] [place] [address] Nov, [facility] [address] [id number] [place] [id number] Nov, [facility] [address] [id number] [place] [id number] Oct, [facility] [address] [facility] [id number] [place] [address] Oct, [facility] [address] [facility] [id number] [place] [id number] Oct, [facility] [id number] [address] Oct, [facility] [id number] [address] Sep, [facility] [address] [id number] [address] Sep, [facility] [address] [id number] [address] Sep, [facility] [id number] [address] Aug, [facility] [address] [id number] [address] Jul, [facility] [address] [facility] [id number] [place] [address] Jul, [facility] [address] [facility] [id number] [place] [address] February, [facility] [id number] [address] Jan, IMMUNIZATIONS No Known Immunizations SOCIAL HISTORY Never Assessed REASON FOR VISIT phone call PLAN OF CARE VITAL SIGNS MEDICATIONS Unknown [...] by son 11/[address] [facility] for headache 05/28/17
--- OUTSIDE RECORDS SUMMARY | 2018-02-19 21:24 | XMS REPORT ---
Author JERICA Fraga [facility] eClinicalWorks Address Unknown Phone Unavailable Care Team Providers Care Cilnical Scientist Name Role Phone JERICA JACOBS CP Unavailable Allergies No Known Allergies Problems Problem Type Condition Code Onset Dates Condition Status Problem Hyperlipemia E78.5 Active Problem Chronic pain G89.29 Active Problem Morbid obesity E66.01 Active Problem Depression with anxiety F41.8 Active Problem GERD (gastroesophageal reflux disease) K21.9 Active Medications No Known Medications Results No Known Results Summary Purpose eClinicalWorks Submission
--- OUTSIDE RECORDS SUMMARY | 2018-02-19 21:24 | XMS REPORT ---
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
--- OUTSIDE RECORDS SUMMARY | 2018-02-19 21:24 | XMS REPORT ---
Author Author JOSÉ WHITE Organization eClinicalWorks Address Unknown Phone Unavailable Care Team Providers Care Street Commissioner Name Role Phone JOSÉ WHITE CP Unavailable Allergies No Known Allergies Problems Problem Type Condition Code Onset Dates Condition Status Assessment Anxiety associated with depression F41.8 Active Problem Depression with anxiety F41.8 Active [...]
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
--- OUTSIDE RECORDS SUMMARY | 2018-02-19 21:25 | XMS REPORT ---
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 Info Not Available Non Drug Allergy Problems Problem Type Condition Code Onset Dates Condition Status Assessment Morbid obesity E66.01 Active Problem GERD (gastroesophageal reflux disease) K21.9 Active Assessment Depression with anxiety F41.8 Active Problem Headache R51 Active Problem Metabolic syndrome E88.81 Active Problem Neck pain M54.2 Active Problem Chronic pain G89.29 Active Problem Depression with anxiety F41.8 Active Problem Morbid obesity E66.01 Active Problem Hyperlipemia E78.5 Active Assessment Headache R51 Active Assessment Metabolic syndrome E88.81 Active Assessment GERD (gastroesophageal reflux disease) K21.9 Active Medications Medication Code System Code Instructions Start Date End Date Status Dosage Topamax [facility] [address]-98 50 mg Orally Twice a day May 04, 2016 1 tablet Simvastatin [facility] [address]-86 20 mg Orally Once a day. March 08, 2015 1 tablet in the evening Trazodone HCl [facility] [address]-32 50 MG Orally Once a day 0.5 tablet at bedtime as needed Omeprazole [facility] [address]-03 40 mg Orally Once a day 1 capsule MetFORMIN HCl ER (MOD) [facility] [address]-91 500 MG Orally 2 times a day Sep 2 tablets with evening meal Ibuprofen [facility] [address]-15 800 MG Orally Three times a day as needed take 1 tablet Duloxetine HCl [facility] [address]-53 60 mg Orally Once a day May 04, 2016 1 capsule Procedures Procedure Coding System Code Date Office Visit, Est Pt., Level 4 CPT-4 89401 May 04, 2016 Vital Signs Date/Time: May 04, 2016 Cardiac Monitoring Heart Rate 88 bpm Weight 361.1 lbs Height 68 in Blood Pressure Diastolic 80 mmHg Blood Pressure Systolic 120 mmHg Results No Known Results Summary Purpose eClinicalWorks Submission
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
--- OUTSIDE RECORDS SUMMARY | 2018-02-19 21:27 | XMS REPORT | Continuity of Care Document ---
Author Author [facility] Organization [facility] Address Unknown Phone Unavailable Allergies There is no data. Medications There is no data. Problems Date Dx Coded Attending Type Code Diagnosis Diagnosed By 02/06/2010 VERONICA INIGUEZ APRN DEPRESSIVE DISORDER, NOT ELSEWHERE CLASSIFIED 02/06/2010 VERONICA INIGUEZ APRN V58.69 MEDICATION HIGH RISK 02/06/2010 311 DEPRESSIVE DISORDER, NOT ELSEWHERE CLASSIFIED 02/06/2010 V58.69 MEDICATION HIGH RISK 02/06/2010 311 DEPRESSIVE DISORDER, NOT ELSEWHERE CLASSIFIED 02/06/2010 V58.69 MEDICATION HIGH RISK 02/06/2010 VERONICA INIGUEZ APRN 311 DEPRESSIVE DISORDER, NOT ELSEWHERE CLASSIFIED 02/06/2010 VERONICA INIGUEZ APRN V58.69 MEDICATION HIGH RISK 02/06/2010 311 DEPRESSIVE DISORDER, NOT ELSEWHERE CLASSIFIED 02/06/2010 V58.69 MEDICATION HIGH RISK 02/06/2010 311 DEPRESSIVE DISORDER, NOT ELSEWHERE CLASSIFIED 02/06/2010 V58.69 MEDICATION HIGH RISK 02/06/2010 311 DEPRESSIVE DISORDER, NOT ELSEWHERE CLASSIFIED 02/06/2010 V58.69 MEDICATION HIGH RISK 02/06/2010 311 DEPRESSIVE DISORDER, NOT ELSEWHERE CLASSIFIED 02/06/2010 V58.69 MEDICATION HIGH RISK 02/06/2010 311 DEPRESSIVE DISORDER, NOT ELSEWHERE CLASSIFIED 02/06/2010 V58.69 MEDICATION HIGH RISK 02/06/2010 311 DEPRESSIVE DISORDER, NOT ELSEWHERE CLASSIFIED 02/06/2010 V58.69 MEDICATION HIGH RISK 02/06/2010 KAYE DO KELLY K 311 DEPRESSIVE DISORDER, NOT ELSEWHERE CLASSIFIED 02/06/2010 VARGAS LAWS KELLY K V58.69 MEDICATION HIGH RISK 02/06/2010 KAYE DO KELLY K 311 DEPRESSIVE DISORDER, NOT ELSEWHERE CLASSIFIED 02/06/2010 KAYE DO KELLY K V58.69 MEDICATION HIGH RISK 02/06/2010 KAYE DO KELLY K 311 DEPRESSIVE DISORDER, NOT ELSEWHERE CLASSIFIED 02/06/2010 KAYE DO KELLY K V58.69 MEDICATION HIGH RISK 02/06/2010 311 DEPRESSIVE DISORDER, NOT ELSEWHERE CLASSIFIED 02/06/2010 V58.69 MEDICATION HIGH RISK 02/06/2010 KAYE DO, KELLY K 311 DEPRESSIVE DISORDER, NOT ELSEWHERE CLASSIFIED 02/06/2010 KAYE DO, KELLY K V58.69 MEDICATION HIGH RISK 02/06/2010 KAYE DO, KELLY K 311 DEPRESSIVE DISORDER, NOT ELSEWHERE CLASSIFIED 02/06/2010 KAYE DO, KELLY K V58.69 MEDICATION HIGH RISK 02/06/2010 KAYE DO, KELLY K 311 DEPRESSIVE DISORDER, NOT ELSEWHERE CLASSIFIED 02/06/2010 KAYE DO, KELLY K V58.69 MEDICATION HIGH RISK 02/06/2010 KAYE DO, KELLY K 311 DEPRESSIVE DISORDER, NOT ELSEWHERE CLASSIFIED 02/06/2010 KAYE DO, KELLY K V58.69 MEDICATION HIGH RISK 02/06/2010 KAYE DO, KELLY K 311 DEPRESSIVE DISORDER, NOT ELSEWHERE CLASSIFIED 02/06/2010 KAYE DO, KELLY K V58.69 MEDICATION HIGH RISK 02/06/2010 KAYE DO, KELLY K 311 DEPRESSIVE DISORDER, NOT ELSEWHERE CLASSIFIED 02/06/2010 KAYE DO, KELLY K V58.69 MEDICATION HIGH RISK 02/06/2010 KAYE DO, KELLY K 311 DEPRESSIVE DISORDER, NOT ELSEWHERE CLASSIFIED 02/06/2010 KAYE DO, KELLY K V58.69 MEDICATION HIGH RISK 02/06/2010 VERONICA INIGUEZ APRN 311 DEPRESSIVE DISORDER, NOT ELSEWHERE CLASSIFIED 02/06/2010 VERONICA INIGUEZ APRN R V58.69 MEDICATION HIGH RISK 02/06/2010 HELLKWASI BENJAMIN APRNSIE E 311 DEPRESSIVE DISORDER, NOT ELSEWHERE CLASSIFIED 02/06/2010 KWASI BOLANOS APRNSIE E V58.69 MEDICATION HIGH RISK 02/06/2010 KAYE DO, KELLY K 311 DEPRESSIVE DISORDER, NOT ELSEWHERE CLASSIFIED 02/06/2010 KAYE DO, KELLY K V58.69 MEDICATION HIGH RISK 01/24/2011 VERONICA INIGUEZ APRN 458.0 ORTHOSTATIC HYPOTENSION 01/24/2011 VERONICA INIGUEZ APRN 780.2 SYNCOPE AND COLLAPSE 01/24/2011 458.0 ORTHOSTATIC HYPOTENSION 01/24/2011 780.2 SYNCOPE AND COLLAPSE 01/24/2011 458.0 ORTHOSTATIC HYPOTENSION 01/24/2011 780.2 SYNCOPE AND COLLAPSE 01/24/2011 VERONICA INIGUEZ APRN 458.0 ORTHOSTATIC HYPOTENSION 01/24/2011 VERONICA INIGUEZ APRN 780.2 SYNCOPE AND COLLAPSE 01/24/2011 458.0 ORTHOSTATIC HYPOTENSION 01/24/2011 780.2 SYNCOPE AND COLLAPSE 01/24/2011 458.0 ORTHOSTATIC HYPOTENSION 01/24/2011 780.2 SYNCOPE AND COLLAPSE 01/24/2011 458.0 ORTHOSTATIC HYPOTENSION 01/24/2011 780.2 SYNCOPE AND COLLAPSE 01/24/2011 458.0 ORTHOSTATIC HYPOTENSION 01/24/2011 780.2 SYNCOPE AND COLLAPSE 01/24/2011 458.0 ORTHOSTATIC HYPOTENSION 01/24/2011 780.2 SYNCOPE AND COLLAPSE 01/24/2011 458.0 ORTHOSTATIC HYPOTENSION 01/24/2011 780.2 SYNCOPE AND COLLAPSE 01/24/2011 KAYE DO, KELLY K 458.0 ORTHOSTATIC HYPOTENSION 01/24/2011 KAYE DO, KELLY K 780.2 SYNCOPE AND COLLAPSE 01/24/2011 KAYE DO, KELLY K 458.0 ORTHOSTATIC HYPOTENSION 01/24/2011 KAYE DO, KELLY K 780.2 SYNCOPE AND COLLAPSE 01/24/2011 KAYE DO, KELLY K 458.0 ORTHOSTATIC HYPOTENSION 01/24/2011 KAYE DO, KELLY K 780.2 SYNCOPE AND COLLAPSE 01/24/2011 458.0 ORTHOSTATIC HYPOTENSION 01/24/2011 780.2 SYNCOPE AND COLLAPSE 01/24/2011 KAYE DO, KELLY K 458.0 ORTHOSTATIC HYPOTENSION 01/24/2011 KAYE DO, KELLY K 780.2 SYNCOPE AND COLLAPSE 01/24/2011 KAYE DO, KELLY K 458.0 ORTHOSTATIC HYPOTENSION 01/24/2011 KAYE DO, KELLY K 780.2 SYNCOPE AND COLLAPSE 01/24/2011 KAYE DO, KELLY K 458.0 ORTHOSTATIC HYPOTENSION 01/24/2011 KAYE DO, KELLY K 780.2 SYNCOPE AND COLLAPSE 01/24/2011 KAYE DO, KELLY K 458.0 ORTHOSTATIC HYPOTENSION 01/24/2011 KAYE DO, KELLY K 780.2 SYNCOPE AND COLLAPSE 01/24/2011 KAYE DO, KELLY K 458.0 ORTHOSTATIC HYPOTENSION 01/24/2011 KAYE DO, KELLY K 780.2 SYNCOPE AND COLLAPSE 01/24/2011 KAYE DO, KELLY K 458.0 ORTHOSTATIC HYPOTENSION 01/24/2011 KAYE DO, KELLY K 780.2 SYNCOPE AND COLLAPSE 01/24/2011 KAYE DO, KELLY K 458.0 ORTHOSTATIC HYPOTENSION 01/24/2011 KAYE DO, KELLY K 780.2 SYNCOPE AND COLLAPSE 01/24/2011 VERONICA INIGUEZ APRN 458.0 ORTHOSTATIC HYPOTENSION 01/24/2011 VERONICA INIGUEZ APRN 780.2 SYNCOPE AND COLLAPSE 01/24/2011 [facility] GLASS SETTERROVERTO E 458.0 ORTHOSTATIC HYPOTENSION 01/24/2011 [facility] ART GLASS SETTER, ROVERTO E 780.2 SYNCOPE AND COLLAPSE 01/24/2011 KAYE DO, KELLY K 458.0 ORTHOSTATIC HYPOTENSION 01/24/2011 KAYE DO, KELLY K 780.2 SYNCOPE AND COLLAPSE 04/24/2011 VERONICA NIIGUEZ APRN 278.00 OBESITY UNSPECIFIED 04/24/2011 VERONICA INIGUEZ APRN 287.5 THROMBOCYTOPENIA 04/24/2011 VERONICA INIGUEZ APRN V72.31 LEAD IOS DEVELOPER EXAM, ROUTINE 04/24/2011 VERONICA INIGUEZ APRN V77.1 SCREENING FOR DIABETES MELLITUS 04/24/2011 VERONICA INIGUEZ APRN V77.91 SCREENING FOR LIPOID DISORDERS 04/24/2011 278.00 OBESITY UNSPECIFIED 04/24/2011 287.5 THROMBOCYTOPENIA 04/24/2011 V72.31 LEAD IOS DEVELOPER EXAM, ROUTINE 04/24/2011 V77.1 SCREENING FOR DIABETES MELLITUS 04/24/2011 V77.91 SCREENING FOR LIPOID DISORDERS 04/24/2011 278.00 OBESITY UNSPECIFIED 04/24/2011 287.5 THROMBOCYTOPENIA 04/24/2011 V72.31 LEAD IOS DEVELOPER EXAM, ROUTINE 04/24/2011 V77.1 SCREENING FOR DIABETES MELLITUS 04/24/2011 V77.91 SCREENING FOR LIPOID DISORDERS 04/24/2011 VERONICA INIGUEZ APRN 278.00 OBESITY UNSPECIFIED 04/24/2011 VERONICA INIGUEZ APRN 287.5 THROMBOCYTOPENIA 04/24/2011 VERONICA INIGUEZ APRN V72.31 LEAD IOS DEVELOPER EXAM, ROUTINE 04/24/2011 VERONICA INIGUEZ APRN V77.1 SCREENING FOR DIABETES MELLITUS 04/24/2011 VERONICA INIGUEZ APRN V77.91 SCREENING FOR LIPOID DISORDERS 04/24/2011 278.00 OBESITY UNSPECIFIED 04/24/2011 287.5 THROMBOCYTOPENIA 04/24/2011 V72.31 LEAD IOS DEVELOPER EXAM, ROUTINE 04/24/2011 V77.1 SCREENING FOR DIABETES MELLITUS 04/24/2011 V77.91 SCREENING FOR LIPOID DISORDERS 04/24/2011 278.00 OBESITY UNSPECIFIED 04/24/2011 287.5 THROMBOCYTOPENIA 04/24/2011 V72.31 LEAD IOS DEVELOPER EXAM, ROUTINE 04/24/2011 V77.1 SCREENING FOR DIABETES MELLITUS 04/24/2011 V77.91 SCREENING FOR LIPOID DISORDERS 04/24/2011 278.00 OBESITY UNSPECIFIED 04/24/2011 287.5 THROMBOCYTOPENIA 04/24/2011 V72.31 LEAD IOS DEVELOPER EXAM, ROUTINE 04/24/2011 V77.1 SCREENING FOR DIABETES MELLITUS 04/24/2011 V77.91 SCREENING FOR LIPOID DISORDERS 04/24/2011 278.00 OBESITY UNSPECIFIED 04/24/2011 287.5 THROMBOCYTOPENIA 04/24/2011 V72.31 LEAD IOS DEVELOPER EXAM, ROUTINE 04/24/2011 V77.1 SCREENING FOR DIABETES MELLITUS 04/24/2011 V77.91 SCREENING FOR LIPOID DISORDERS 04/24/2011 278.00 OBESITY UNSPECIFIED 04/24/2011 287.5 THROMBOCYTOPENIA 04/24/2011 V72.31 LEAD IOS DEVELOPER EXAM, ROUTINE 04/24/2011 V77.1 SCREENING FOR DIABETES MELLITUS 04/24/2011 V77.91 SCREENING FOR LIPOID DISORDERS 04/24/2011 278.00 OBESITY UNSPECIFIED 04/24/2011 287.5 THROMBOCYTOPENIA 04/24/2011 V72.31 LEAD IOS DEVELOPER EXAM, ROUTINE 04/24/2011 V77.1 SCREENING FOR DIABETES MELLITUS 04/24/2011 V77.91 SCREENING FOR LIPOID DISORDERS 04/24/2011 KAYE DO, KELLY K 278.00 OBESITY UNSPECIFIED 04/24/2011 KAYE DO, KELLY K 287.5 THROMBOCYTOPENIA 04/24/2011 KAYE DO, KELLY K V72.31 LEAD IOS DEVELOPER EXAM, ROUTINE 04/24/2011 KAYE DO, KELLY K V77.1 SCREENING FOR DIABETES MELLITUS 04/24/2011 KAYE DO, KELLY K V77.91 SCREENING FOR LIPOID DISORDERS 04/24/2011 KAYE DO, KELLY K 278.00 OBESITY UNSPECIFIED 04/24/2011 KAYE DO, KELLY K 287.5 THROMBOCYTOPENIA 04/24/2011 KAYE DO, KELLY K V72.31 LEAD IOS DEVELOPER EXAM, ROUTINE 04/24/2011 KAYE DO, KELLY K V77.1 SCREENING FOR DIABETES MELLITUS 04/24/2011 KAYE DO, KELLY K V77.91 SCREENING FOR LIPOID DISORDERS 04/24/2011 KAYE DO, KELLY K 278.00 OBESITY UNSPECIFIED 04/24/2011 KAYE DO, KELLY K 287.5 THROMBOCYTOPENIA 04/24/2011 KAYE DO, KELLY K V72.31 LEAD IOS DEVELOPER EXAM, ROUTINE 04/24/2011 KAYE DO, KELLY K V77.1 SCREENING FOR DIABETES MELLITUS 04/24/2011 KAYE DO, KELLY K V77.91 SCREENING FOR LIPOID DISORDERS 04/24/2011 278.00 OBESITY UNSPECIFIED 04/24/2011 287.5 THROMBOCYTOPENIA 04/24/2011 V72.31 LEAD IOS DEVELOPER EXAM, ROUTINE 04/24/2011 V77.1 SCREENING FOR DIABETES MELLITUS 04/24/2011 V77.91 SCREENING FOR LIPOID DISORDERS 04/24/2011 KAYE DO, KELLY K 278.00 OBESITY UNSPECIFIED 04/24/2011 KAYE DO, KELLY K 287.5 THROMBOCYTOPENIA 04/24/2011 KAYE DO, KELLY K V72.31 LEAD IOS DEVELOPER EXAM, ROUTINE 04/24/2011 KAYE DO, KELLY K V77.1 SCREENING FOR DIABETES MELLITUS 04/24/2011 KAYE DO, KELLY K V77.91 SCREENING FOR LIPOID DISORDERS 04/24/2011 KAYE DO, KELLY K 278.00 OBESITY UNSPECIFIED 04/24/2011 KAYE DO, KELLY K 287.5 THROMBOCYTOPENIA 04/24/2011 KAYE DO, KELLY K V72.31 LEAD IOS DEVELOPER EXAM, ROUTINE 04/24/2011 KAYE DO, KELLY K V77.1 SCREENING FOR DIABETES MELLITUS 04/24/2011 KAYE DO, KELLY K V77.91 SCREENING FOR LIPOID DISORDERS 04/24/2011 KAYE DO, KELLY K 278.00 OBESITY UNSPECIFIED 04/24/2011 KAYE DO, KELYL K 287.5 THROMBOCYTOPENIA 04/24/2011 KAYE DO, KELLY K V72.31 LEAD IOS DEVELOPER EXAM, ROUTINE 04/24/2011 KAYE DO, KELLY K V77.1 SCREENING FOR DIABETES MELLITUS 04/24/2011 KAYE DO, KELLY K V77.91 SCREENING FOR LIPOID DISORDERS 04/24/2011 KAYE DO, KELLY K 278.00 OBESITY UNSPECIFIED 04/24/2011 KAYE DO, KELLY K 287.5 THROMBOCYTOPENIA 04/24/2011 KAYE DO, KELLY K V72.31 LEAD IOS DEVELOPER EXAM, ROUTINE 04/24/2011 KAYE DO, KELLY K V77.1 SCREENING FOR DIABETES MELLITUS 04/24/2011 KAYE DO, KELLY K V77.91 SCREENING FOR LIPOID DISORDERS 04/24/2011 KAYE DO, KELLY K 278.00 OBESITY UNSPECIFIED 04/24/2011 KAYE DO, KELLY K 287.5 THROMBOCYTOPENIA 04/24/2011 KAYE DO, KELLY K V72.31 LEAD IOS DEVELOPER EXAM, ROUTINE 04/24/2011 KAYE DO, KELLY K V77.1 SCREENING FOR DIABETES MELLITUS 04/24/2011 KAYE DO, KELLY K V77.91 SCREENING FOR LIPOID DISORDERS 04/24/2011 KAYE DO, KELLY K 278.00 OBESITY UNSPECIFIED 04/24/2011 KAYE DO, KELLY K 287.5 THROMBOCYTOPENIA 04/24/2011 KAYE DO, KELLY K V72.31 LEAD IOS DEVELOPER EXAM, ROUTINE 04/24/2011 KAYE DO, KELLY K V77.1 SCREENING FOR DIABETES MELLITUS 04/24/2011 KAYE DO, KELLY K V77.91 SCREENING FOR LIPOID DISORDERS 04/24/2011 KAYE DO, KELLY K 278.00 OBESITY UNSPECIFIED 04/24/2011 KAYE DO, KELLY K 287.5 THROMBOCYTOPENIA 04/24/2011 KAYE DO, KELLY K V72.31 LEAD IOS DEVELOPER EXAM, ROUTINE 04/24/2011 KAYE DO, KELLY K V77.1 SCREENING FOR DIABETES MELLITUS 04/24/2011 KAYE DO, KELLY K V77.91 SCREENING FOR LIPOID DISORDERS 04/24/2011 VERONICA INIGUEZ APRN 278.00 OBESITY UNSPECIFIED 04/24/2011 VERONICA INIGUEZ APRN 287.5 THROMBOCYTOPENIA 04/24/2011 VERONICA INIGUEZ APRN V72.31 LEAD IOS DEVELOPER EXAM, ROUTINE 04/24/2011 VERONICA INIGUEZ APRN V77.1 SCREENING FOR DIABETES MELLITUS 04/24/2011 VERONICA INIGUEZ APRN V77.91 SCREENING FOR LIPOID DISORDERS 04/24/2011 ROVERTO BOLANOS APRN E 278.00 OBESITY UNSPECIFIED 04/24/2011 ROVERTO BOLANOS APRN E 287.5 THROMBOCYTOPENIA 04/24/2011 ROVERTO BOLANOS APRN V72.31 LEAD IOS DEVELOPER EXAM, ROUTINE 04/24/2011 ROVERTO BOLANOS APRN E V77.1 SCREENING FOR DIABETES MELLITUS 04/24/2011 ROVERTO BOLANOS APRN E V77.91 SCREENING FOR LIPOID DISORDERS 04/24/2011 KAYE DO, KELLY K 278.00 OBESITY UNSPECIFIED 04/24/2011 KAYE DO, KELLY K 287.5 THROMBOCYTOPENIA 04/24/2011 KAYE DO, KELLY K V72.31 LEAD IOS DEVELOPER EXAM, ROUTINE 04/24/2011 KAYE DO, KELLY K V77.1 SCREENING FOR DIABETES MELLITUS 04/24/2011 KAYE DO, KELLY K V77.91 SCREENING FOR LIPOID DISORDERS 07/20/2011 VERONICA INIGUEZ APRN 785.6 LYMPH NODES ENLARGEMENT 07/20/2011 785.6 LYMPH NODES ENLARGEMENT 07/20/2011 785.6 LYMPH NODES ENLARGEMENT 07/20/2011 VERONICA INIGUEZ APRN 785.6 LYMPH NODES ENLARGEMENT 07/20/2011 785.6 LYMPH NODES ENLARGEMENT 07/20/2011 785.6 LYMPH NODES ENLARGEMENT 07/20/2011 785.6 LYMPH NODES ENLARGEMENT 07/20/2011 785.6 LYMPH NODES ENLARGEMENT 07/20/2011 785.6 LYMPH NODES ENLARGEMENT 07/20/2011 785.6 LYMPH NODES ENLARGEMENT 07/20/2011 KAYE DO, KELLY K 785.6 LYMPH NODES ENLARGEMENT 07/20/2011 KAYE DO, KELLY K 785.6 LYMPH NODES ENLARGEMENT 07/20/2011 KAYE DO, KELLY K 785.6 LYMPH NODES ENLARGEMENT 07/20/2011 785.6 LYMPH NODES ENLARGEMENT 07/20/2011 KAYE DO, KELLY K 785.6 LYMPH NODES ENLARGEMENT 07/20/2011 KAYE DO, KELLY K 785.6 LYMPH NODES ENLARGEMENT 07/20/2011 KAYE DO, KELLY K 785.6 LYMPH NODES ENLARGEMENT 07/20/2011 KAYE DO, KELLY K 785.6 LYMPH NODES ENLARGEMENT 07/20/2011 KAYE DO, KELLY K 785.6 LYMPH NODES ENLARGEMENT 07/20/2011 KAYE DO, KELLY K 785.6 LYMPH NODES ENLARGEMENT 07/20/2011 KAYE DO, KELLY K 785.6 LYMPH NODES ENLARGEMENT 07/20/2011 VERONICA INIGUEZ APRN 785.6 LYMPH NODES ENLARGEMENT 07/20/2011 ROVERTO BOLANOS APRN 785.6 LYMPH NODES ENLARGEMENT 07/20/2011 KAYE DO, KELLY K 785.6 LYMPH NODES ENLARGEMENT 08/06/2011 VERONICA INIGUEZ APRN 729.5 pain in the hands 08/06/2011 729.5 pain in the hands 08/06/2011 729.5 pain in the hands 08/06/2011 VERONICA INIGUEZ APRN 729.5 pain in the hands 08/06/2011 729.5 pain in the hands 08/06/2011 729.5 pain in the hands 08/06/2011 729.5 pain in the hands 08/06/2011 729.5 pain in the hands 08/06/2011 729.5 pain in the hands 08/06/2011 729.5 pain in the hands 08/06/2011 KAYE DO, KELLY K 729.5 pain in the hands 08/06/2011 KAYE DO, KELLY K 729.5 pain in the hands 08/06/2011 KAYE DO, KELLY K 729.5 pain in the hands 08/06/2011 729.5 pain in the hands 08/06/2011 KAYE DO, KELLY K 729.5 pain in the hands 08/06/2011 KAYE DO, KELLY K 729.5 pain in the hands 08/06/2011 KAYE DO, KELLY K 729.5 pain in the hands 08/06/2011 KAYE DO, KELLY K 729.5 pain in the hands 08/06/2011 KAYE DO, KELLY K 729.5 pain in the hands 08/06/2011 KAYE DO, KELLY K 729.5 pain in the hands 08/06/2011 KAYE DO, KELLY K 729.5 pain in the hands 08/06/2011 VERONICA INIGUEZ APRN 729.5 pain in the hands 08/06/2011 ROVERTO BOLANOS APRN 729.5 pain in the hands 08/06/2011 KAYE DO, KELLY K 729.5 pain in the hands 09/26/2011 VERONICA INIGUEZ APRN 465.9 UPPER RESPIRATORY INFECTION 09/26/2011 465.9 UPPER RESPIRATORY INFECTION 09/26/2011 465.9 UPPER RESPIRATORY INFECTION 09/26/2011 VERONICA INIGUEZ APRN 465.9 UPPER RESPIRATORY INFECTION 09/26/2011 465.9 UPPER RESPIRATORY INFECTION 09/26/2011 465.9 UPPER RESPIRATORY INFECTION 09/26/2011 465.9 UPPER RESPIRATORY INFECTION 09/26/2011 465.9 UPPER RESPIRATORY INFECTION 09/26/2011 465.9 UPPER RESPIRATORY INFECTION 09/26/2011 465.9 UPPER RESPIRATORY INFECTION 09/26/2011 KAYE DO, KELLY K 465.9 UPPER RESPIRATORY INFECTION 09/26/2011 KAYE DO, KELLY K 465.9 UPPER RESPIRATORY INFECTION 09/26/2011 KAYE DO, KELLY K 465.9 UPPER RESPIRATORY INFECTION 09/26/2011 465.9 UPPER RESPIRATORY INFECTION 09/26/2011 KAYE DO, KELLY K 465.9 UPPER RESPIRATORY INFECTION 09/26/2011 KAYE DO, KELLY K 465.9 UPPER RESPIRATORY INFECTION 09/26/2011 KAYE DO, KELLY K 465.9 UPPER RESPIRATORY INFECTION 09/26/2011 KAYE DO, KELLY K 465.9 UPPER RESPIRATORY INFECTION 09/26/2011 KAYE DO, KELLY K 465.9 UPPER RESPIRATORY INFECTION 09/26/2011 KAYE DO, KELLY K 465.9 UPPER RESPIRATORY INFECTION 09/26/2011 KAYE DO, KELLY K 465.9 UPPER RESPIRATORY INFECTION 09/26/2011 VERONICA INIGUEZ APRN 465.9 UPPER RESPIRATORY INFECTION 09/26/2011 ROVERTO BOLANOS APRN 465.9 UPPER RESPIRATORY INFECTION 09/26/2011 KAYE DO, KELLY K 465.9 UPPER RESPIRATORY INFECTION 09/27/2011 VERONICA INIGUEZ APRN 354.0 CARPAL TUNNEL SYNDROME 09/27/2011 VERONICA INIGUEZ APRN 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 09/27/2011 354.0 CARPAL TUNNEL SYNDROME 09/27/2011 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 09/27/2011 354.0 CARPAL TUNNEL SYNDROME 09/27/2011 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 09/27/2011 VERONICA INIGUEZ APRN 354.0 CARPAL TUNNEL SYNDROME 09/27/2011 VERONICA INIGUEZ APRN 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 09/27/2011 354.0 CARPAL TUNNEL SYNDROME 09/27/2011 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 09/27/2011 354.0 CARPAL TUNNEL SYNDROME 09/27/2011 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 09/27/2011 354.0 CARPAL TUNNEL SYNDROME 09/27/2011 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 09/27/2011 354.0 CARPAL TUNNEL SYNDROME 09/27/2011 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 09/27/2011 354.0 CARPAL TUNNEL SYNDROME 09/27/2011 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 09/27/2011 354.0 CARPAL TUNNEL SYNDROME 09/27/2011 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 09/27/2011 KAYE DO, KELLY K 354.0 CARPAL TUNNEL SYNDROME 09/27/2011 KAYE DO, KELLY K 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 09/27/2011 KAYE DO, KELLY K 354.0 CARPAL TUNNEL SYNDROME 09/27/2011 KAYE DO, KELLY K 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 09/27/2011 KAYE DO, KELLY K 354.0 CARPAL TUNNEL SYNDROME 09/27/2011 KAYE DO, KELLY K 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 09/27/2011 354.0 CARPAL TUNNEL SYNDROME 09/27/2011 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 09/27/2011 KAYE DO, KELLY K 354.0 CARPAL TUNNEL SYNDROME 09/27/2011 KAYE DO, KELLY K 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 09/27/2011 KAYE DO, KELLY K 354.0 CARPAL TUNNEL SYNDROME 09/27/2011 KAYE DO, KELLY K 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 09/27/2011 KAYE DO, KELLY K 354.0 CARPAL TUNNEL SYNDROME 09/27/2011 KAYE DO, KELLY K 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 09/27/2011 KAYE DO, KELLY K 354.0 CARPAL TUNNEL SYNDROME 09/27/2011 KAYE DO, KELLY K 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 09/27/2011 KAYE DO, KELLY K 354.0 CARPAL TUNNEL SYNDROME 09/27/2011 KAYE DO, KELLY K 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 09/27/2011 KAYE DO, KELLY K 354.0 CARPAL TUNNEL SYNDROME 09/27/2011 KAYE DO, KELLY K 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 09/27/2011 KAYE DO, KELLY K 354.0 CARPAL TUNNEL SYNDROME 09/27/2011 KAYE DO, KELLY K 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 09/27/2011 VERONICA INIGUEZ APRN R 354.0 CARPAL TUNNEL SYNDROME 09/27/2011 VERONICA INIGUEZ APRN 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 09/27/2011 ROVERTO BOLANOS APRN E 354.0 CARPAL TUNNEL SYNDROME 09/27/2011 ROVERTO BOLANOS APRN E 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 09/27/2011 KAYE DO, KELLY K 354.0 CARPAL TUNNEL SYNDROME 09/27/2011 KAYE DO, KELLY K 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 11/09/2011 VERONICA INIGUEZ APRN 780.79 FATIGUE 11/09/2011 780.79 FATIGUE 11/09/2011 780.79 FATIGUE 11/09/2011 VERONICA INIGUEZ APRN 780.79 FATIGUE 11/09/2011 780.79 FATIGUE 11/09/2011 780.79 FATIGUE 11/09/2011 780.79 FATIGUE 11/09/2011 780.79 FATIGUE 11/09/2011 780.79 FATIGUE 11/09/2011 780.79 FATIGUE 11/09/2011 KAYE DO, KELLY K 780.79 FATIGUE 11/09/2011 KAYE DO, KELLY K 780.79 FATIGUE 11/09/2011 KAYE DO, KELLY K 780.79 FATIGUE 11/09/2011 780.79 FATIGUE 11/09/2011 KAYE DO, KELLY K 780.79 FATIGUE 11/09/2011 KAYE DO, KELLY K 780.79 FATIGUE 11/09/2011 KAYE DO, KELLY K 780.79 FATIGUE 11/09/2011 KAYE DO, KELLY K 780.79 FATIGUE 11/09/2011 KAYE DO, KELLY K 780.79 FATIGUE 11/09/2011 KAYE DO, KELLY K 780.79 FATIGUE 11/09/2011 KAYE DO, KELLY K 780.79 FATIGUE 11/09/2011 VERONICA INIGUEZ APRN 780.79 FATIGUE 11/09/2011 ROVERTO BOLANOS APRN 780.79 FATIGUE 11/09/2011 KAYE DO, KELLY K 780.79 FATIGUE 12/20/2011 VERONICA INIGUEZ APRN 786.09 difficulty breathing (dyspnea) 12/20/2011 786.09 difficulty breathing (dyspnea) 12/20/2011 786.09 difficulty breathing (dyspnea) 12/20/2011 VERONICA INIGUEZ APRN 786.09 difficulty breathing (dyspnea) 12/20/2011 786.09 difficulty breathing (dyspnea) 12/20/2011 786.09 difficulty breathing (dyspnea) 12/20/2011 786.09 difficulty breathing (dyspnea) 12/20/2011 786.09 difficulty breathing (dyspnea) 12/20/2011 786.09 difficulty breathing (dyspnea) 12/20/2011 786.09 difficulty breathing (dyspnea) 12/20/2011 KAYE DO KELLY K 786.09 difficulty breathing (dyspnea) 12/20/2011 KAYE DO, KELLY K 786.09 difficulty breathing (dyspnea) 12/20/2011 KAYE DO, KELLY K 786.09 difficulty breathing (dyspnea) 12/20/2011 786.09 difficulty breathing (dyspnea) 12/20/2011 KAYE DO, KELLY K 786.09 difficulty breathing (dyspnea) 12/20/2011 KAYE DO, KELLY K 786.09 difficulty breathing (dyspnea) 12/20/2011 KAYE DO, KELLY K 786.09 difficulty breathing (dyspnea) 12/20/2011 KAYE DO, KELLY K 786.09 difficulty breathing (dyspnea) 12/20/2011 KAYE DO, KELLY K 786.09 difficulty breathing (dyspnea) 12/20/2011 KAYE DO, KELLY K 786.09 difficulty breathing (dyspnea) 12/20/2011 KAYE DO, KELLY K 786.09 difficulty breathing (dyspnea) 12/20/2011 VERONICA INIGUEZ APRN 786.09 difficulty breathing (dyspnea) 12/20/2011 ROVERTO BOLANOS APRN 786.09 difficulty breathing (dyspnea) 12/20/2011 KAYE DO, KELLY K 786.09 difficulty breathing (dyspnea) 03/18/2012 VERONICA INIGUEZ APRN 787.91 diarrhea 03/18/2012 787.91 diarrhea 03/18/2012 787.91 diarrhea 03/18/2012 VERONICA INIGUEZ APRN 787.91 diarrhea 03/18/2012 787.91 diarrhea 03/18/2012 787.91 diarrhea 03/18/2012 787.91 diarrhea 03/18/2012 787.91 diarrhea 03/18/2012 787.91 diarrhea 03/18/2012 787.91 diarrhea 03/18/2012 KAYE DO, KELLY K 787.91 diarrhea 03/18/2012 AKYE DO, KELLY K 787.91 diarrhea 03/18/2012 KAYE DO, KELLY K 787.91 diarrhea 03/18/2012 787.91 diarrhea 03/18/2012 KAYE DO, KELLY K 787.91 diarrhea 03/18/2012 KAYE DO, KELLY K 787.91 diarrhea 03/18/2012 KAYE DO, KELLY K 787.91 diarrhea 03/18/2012 KAYE DO, KELLY K 787.91 diarrhea 03/18/2012 KAYE DO, KELLY K 787.91 diarrhea 03/18/2012 KAYE DO, KELLY K 787.91 diarrhea 03/18/2012 KAYE DO, KELLY K 787.91 diarrhea 03/18/2012 INIGUEZ VERONICA CABAN 787.91 diarrhea 03/18/2012 ROVERTO BOLANOS APRN 787.91 diarrhea 03/18/2012 KAYE DO, KELLY K 787.91 diarrhea 04/10/2012 VERONICA INIGUEZ APRN 300.00 ANXIETY STATE UNSPECIFIED 04/10/2012 VERONICA INIGUEZ APRN 788.31 URGE INCONTINENCE 04/10/2012 300.00 ANXIETY STATE UNSPECIFIED 04/10/2012 788.31 URGE INCONTINENCE 04/10/2012 300.00 ANXIETY STATE UNSPECIFIED 04/10/2012 788.31 URGE INCONTINENCE 04/10/2012 VERONICA INIGUEZ APRN 300.00 ANXIETY STATE UNSPECIFIED 04/10/2012 VERONICA INIGUEZ APRN 788.31 URGE INCONTINENCE 04/10/2012 300.00 ANXIETY STATE UNSPECIFIED 04/10/2012 788.31 URGE INCONTINENCE 04/10/2012 300.00 ANXIETY STATE UNSPECIFIED 04/10/2012 788.31 URGE INCONTINENCE 04/10/2012 300.00 ANXIETY STATE UNSPECIFIED 04/10/2012 788.31 URGE INCONTINENCE 04/10/2012 300.00 ANXIETY STATE UNSPECIFIED 04/10/2012 788.31 URGE INCONTINENCE 04/10/2012 300.00 ANXIETY STATE UNSPECIFIED 04/10/2012 788.31 URGE INCONTINENCE 04/10/2012 300.00 ANXIETY STATE UNSPECIFIED 04/10/2012 788.31 URGE INCONTINENCE 04/10/2012 KAYE DO, KELLY K 300.00 ANXIETY STATE UNSPECIFIED 04/10/2012 KAYE DO, KELLY K 788.31 URGE INCONTINENCE 04/10/2012 KAYE DO, KELLY K 300.00 ANXIETY STATE UNSPECIFIED 04/10/2012 KAYE DO, KELLY K 788.31 URGE INCONTINENCE 04/10/2012 KAYE DO, KELLY K 300.00 ANXIETY STATE UNSPECIFIED 04/10/2012 KAYE DO, KELLY K 788.31 URGE INCONTINENCE 04/10/2012 300.00 ANXIETY STATE UNSPECIFIED 04/10/2012 788.31 URGE INCONTINENCE 04/10/2012 KAYE DO, KELLY K 300.00 ANXIETY STATE UNSPECIFIED 04/10/2012 KAYE DO, KELLY K 788.31 URGE INCONTINENCE 04/10/2012 KAYE DO, KELLY K 300.00 ANXIETY STATE UNSPECIFIED 04/10/2012 KAYE DO, KELLY K 788.31 URGE INCONTINENCE 04/10/2012 KAYE DO, KELLY K 300.00 ANXIETY STATE UNSPECIFIED 04/10/2012 KAYE DO, KELLY K 788.31 URGE INCONTINENCE 04/10/2012 KAYE DO, KELLY K 300.00 ANXIETY STATE UNSPECIFIED 04/10/2012 KAYE DO, KELLY K 788.31 URGE INCONTINENCE 04/10/2012 KAYE DO, KELLY K 300.00 ANXIETY STATE UNSPECIFIED 04/10/2012 KAYE DO, KELLY K 788.31 URGE INCONTINENCE 04/10/2012 KAYE DO, KELLY K 300.00 ANXIETY STATE UNSPECIFIED 04/10/2012 KAYE DO, KELLY K 788.31 URGE INCONTINENCE 04/10/2012 KAYE DO, KELLY K 300.00 ANXIETY STATE UNSPECIFIED 04/10/2012 KAYE DO, KELLY K 788.31 URGE INCONTINENCE 04/10/2012 VERONICA INIGUEZ APRN 300.00 ANXIETY STATE UNSPECIFIED 04/10/2012 VERONICA INIGUEZ APRN 788.31 URGE INCONTINENCE 04/10/2012 BRETROVERTO BENJAMIN APRN E 300.00 ANXIETY STATE UNSPECIFIED 04/10/2012 ROVERTO BOLANOS APRN E 788.31 URGE INCONTINENCE 04/10/2012 KAYE DO, KELLY K 300.00 ANXIETY STATE UNSPECIFIED 04/10/2012 KAYE DO, KELLY K 788.31 URGE INCONTINENCE 04/28/2012 VERONICA INIGUEZ APRN 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 04/28/2012 VERONICA INIGUEZ APRN V76.10 BREAST CANCER SCREENING 04/28/2012 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 04/28/2012 V76.10 BREAST CANCER SCREENING 04/28/2012 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 04/28/2012 V76.10 BREAST CANCER SCREENING 04/28/2012 VERONICA INIGUEZ APRN 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 04/28/2012 VERONICA INIGUEZ APRN V76.10 BREAST CANCER SCREENING 04/28/2012 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 04/28/2012 V76.10 BREAST CANCER SCREENING 04/28/2012 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 04/28/2012 V76.10 BREAST CANCER SCREENING 04/28/2012 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 04/28/2012 V76.10 BREAST CANCER SCREENING 04/28/2012 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 04/28/2012 V76.10 BREAST CANCER SCREENING 04/28/2012 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 04/28/2012 V76.10 BREAST CANCER SCREENING 04/28/2012 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 04/28/2012 V76.10 BREAST CANCER SCREENING 04/28/2012 KAYE DO, KELLY K 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 04/28/2012 KAYE DO, KELLY K V76.10 BREAST CANCER SCREENING 04/28/2012 KAYE DO, KELLY K 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 04/28/2012 AKYE DO, KELLY K V76.10 BREAST CANCER SCREENING 04/28/2012 KAYE DO, KELLY K 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 04/28/2012 KAYE DO, KELLY K V76.10 BREAST CANCER SCREENING 04/28/2012 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 04/28/2012 V76.10 BREAST CANCER SCREENING 04/28/2012 KAYE DO, KELLY K 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 04/28/2012 KAYE DO, KELLY K V76.10 BREAST CANCER SCREENING 04/28/2012 KAYE DO, KELLY K 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 04/28/2012 KAYE DO, KELLY K V76.10 BREAST CANCER SCREENING 04/28/2012 KAYE DO, KELLY K 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 04/28/2012 KAYE DO, KELLY K V76.10 BREAST CANCER SCREENING 04/28/2012 KAYE DO, KELLY K 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 04/28/2012 KAYE DO, KELLY K V76.10 BREAST CANCER SCREENING 04/28/2012 KAYE DO, KELLY K 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 04/28/2012 KAYE DO, KELLY K V76.10 BREAST CANCER SCREENING 04/28/2012 KAYE DO, KELLY K 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 04/28/2012 KAYE DO, KELLY K V76.10 BREAST CANCER SCREENING 04/28/2012 KAYE DO, KELLY K 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 04/28/2012 KAYE DO, KELLY K V76.10 BREAST CANCER SCREENING 04/28/2012 VERONICA INIGUEZ APRN 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 04/28/2012 VERONICA INIGUEZ APRN V76.10 BREAST CANCER SCREENING 04/28/2012 ROVERTO BOLANOS APRN 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 04/28/2012 ROVERTO BOLANOS APRN V76.10 BREAST CANCER SCREENING 04/28/2012 KELLY KAYE DO 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 04/28/2012 KWASI KAYE DOA K V76.10 BREAST CANCER SCREENING 05/14/2012 VERONICA INIGUEZ APRN 462 PHARYNGITIS ACUTE 05/14/2012 462 PHARYNGITIS ACUTE 05/14/2012 462 PHARYNGITIS ACUTE 05/14/2012 VERONICA INIGUEZ APRN 462 PHARYNGITIS ACUTE 05/14/2012 462 PHARYNGITIS ACUTE 05/14/2012 462 PHARYNGITIS ACUTE 05/14/2012 462 PHARYNGITIS ACUTE 05/14/2012 462 PHARYNGITIS ACUTE 05/14/2012 462 PHARYNGITIS ACUTE 05/14/2012 462 PHARYNGITIS ACUTE 05/14/2012 KAYE DO KELLY K 462 PHARYNGITIS ACUTE 05/14/2012 KAYE DO KELLY K 462 PHARYNGITIS ACUTE 05/14/2012 KAYE DO, KELLY K 462 PHARYNGITIS ACUTE 05/14/2012 462 PHARYNGITIS ACUTE 05/14/2012 KAYE DO KELLY K 462 PHARYNGITIS ACUTE 05/14/2012 KAYE DO KELLY K 462 PHARYNGITIS ACUTE 05/14/2012 KAYE DO KELLY K 462 PHARYNGITIS ACUTE 05/14/2012 KAYE DO, KELLY K 462 PHARYNGITIS ACUTE 05/14/2012 KAYE DO KELLY K 462 PHARYNGITIS ACUTE 05/14/2012 KAYE DO KELLY K 462 PHARYNGITIS ACUTE 05/14/2012 KAYE DO, KELLY K 462 PHARYNGITIS ACUTE 05/14/2012 VERONICA INIGUEZ APRN 462 PHARYNGITIS ACUTE 05/14/2012 ROVERTO BOLANOS APRN 462 PHARYNGITIS ACUTE 05/14/2012 KAYE DO, KELLY K 462 PHARYNGITIS ACUTE 08/27/2012 VERONICA INIGUEZ APRN 477.9 RHINITIS 08/27/2012 477.9 RHINITIS 08/27/2012 477.9 RHINITIS 08/27/2012 VERONICA INIGUEZ APRN 477.9 RHINITIS 08/27/2012 477.9 RHINITIS 08/27/2012 477.9 RHINITIS 08/27/2012 477.9 RHINITIS 08/27/2012 477.9 RHINITIS 08/27/2012 477.9 RHINITIS 08/27/2012 477.9 RHINITIS 08/27/2012 KAYE DO, KELLY K 477.9 RHINITIS 08/27/2012 KAYE DO, KELLY K 477.9 RHINITIS 08/27/2012 KAYE DO, KELLY K 477.9 RHINITIS 08/27/2012 477.9 RHINITIS 08/27/2012 KAYE DO, KELLY K 477.9 RHINITIS 08/27/2012 KAYE DO, KELLY K 477.9 RHINITIS 08/27/2012 KAYE DO, KELLY K 477.9 RHINITIS 08/27/2012 KAYE DO, KELLY K 477.9 RHINITIS 08/27/2012 KAYE DO, KELLY K 477.9 RHINITIS 08/27/2012 KAYE DO, KELLY K 477.9 RHINITIS 08/27/2012 KAYE DO, KELLY K 477.9 RHINITIS 08/27/2012 VERONICA INIGUEZ APRN 477.9 RHINITIS 08/27/2012 ROVERTO BOLANOS APRN 477.9 RHINITIS 08/27/2012 KAYE DO, KELLY K 477.9 RHINITIS 10/10/2012 VERONICA INIGUEZ APRN 692.9 DERMATITIS CONTACT UNSPECIFIED 10/10/2012 692.9 DERMATITIS CONTACT UNSPECIFIED 10/10/2012 692.9 DERMATITIS CONTACT UNSPECIFIED 10/10/2012 VERONICA INIGUEZ APRN 692.9 DERMATITIS CONTACT UNSPECIFIED 10/10/2012 692.9 DERMATITIS CONTACT UNSPECIFIED 10/10/2012 692.9 DERMATITIS CONTACT UNSPECIFIED 10/10/2012 692.9 DERMATITIS CONTACT UNSPECIFIED 10/10/2012 692.9 DERMATITIS CONTACT UNSPECIFIED 10/10/2012 692.9 DERMATITIS CONTACT UNSPECIFIED 10/10/2012 692.9 DERMATITIS CONTACT UNSPECIFIED 10/10/2012 KAYE DO, KELLY K 692.9 DERMATITIS CONTACT UNSPECIFIED 10/10/2012 KAYE DO, KELLY K 692.9 DERMATITIS CONTACT UNSPECIFIED 10/10/2012 KAYE DO, KELLY K 692.9 DERMATITIS CONTACT UNSPECIFIED 10/10/2012 KAYE DO, KELLY K 692.9 DERMATITIS CONTACT UNSPECIFIED 10/10/2012 KAYE DO, KELLY K 692.9 DERMATITIS CONTACT UNSPECIFIED 10/10/2012 KAYE DO, KELLY K 692.9 DERMATITIS CONTACT UNSPECIFIED 10/10/2012 KAYE DO, KELLY K 692.9 DERMATITIS CONTACT UNSPECIFIED 10/10/2012 KAYE DO, KELLY K 692.9 DERMATITIS CONTACT UNSPECIFIED 10/10/2012 KAYE DO, KELLY K 692.9 DERMATITIS CONTACT UNSPECIFIED 10/10/2012 KAYE DO, KELLY K 692.9 DERMATITIS CONTACT UNSPECIFIED 10/10/2012 VERONICA INIGUEZ APRN 692.9 DERMATITIS CONTACT UNSPECIFIED 10/10/2012 ROVERTO BOLANOS APRN 692.9 DERMATITIS CONTACT UNSPECIFIED 10/10/2012 KAYE DO, KELLY K 692.9 DERMATITIS CONTACT UNSPECIFIED 11/29/2012 784.0 headache 11/29/2012 VERONICA INIGUEZ APRN 784.0 headache 11/29/2012 784.0 headache 11/29/2012 784.0 headache 11/29/2012 784.0 headache 11/29/2012 784.0 headache 11/29/2012 784.0 headache 11/29/2012 784.0 headache 11/29/2012 KAYE DO, KELLY K 784.0 headache 11/29/2012 KAYE DO, KELLY K 784.0 headache 11/29/2012 KAYE DO, KELLY K 784.0 headache 11/29/2012 KAYE DO, KELLY K 784.0 headache 11/29/2012 KAYE DO, KELLY K 784.0 headache 11/29/2012 KAYE DO, KELLY K 784.0 headache 11/29/2012 KAYE DO, KELLY K 784.0 headache 11/29/2012 KAYE DO, KELLY K 784.0 headache 11/29/2012 KAYE DO, KELLY K 784.0 headache 11/29/2012 KAYE DO, KELLY K 784.0 headache 11/29/2012 VERONICA INIGUEZ APRN 784.0 headache 11/29/2012 LUIS MIGUEL MEEROVERTO Sandy 784.0 headache 11/29/2012 KAYE DO, KELLY K 784.0 headache 03/09/2013 719.43 PAIN- WRIST 03/09/2013 724.2 BACK PAIN, LOWER 03/09/2013 719.43 PAIN- WRIST 03/09/2013 724.2 BACK PAIN, LOWER 03/09/2013 719.43 PAIN- WRIST 03/09/2013 724.2 BACK PAIN, LOWER 03/09/2013 719.43 PAIN- WRIST 03/09/2013 724.2 BACK PAIN, LOWER 03/09/2013 719.43 PAIN- WRIST 03/09/2013 724.2 BACK PAIN, LOWER 03/09/2013 KAYE DO, KELLY K 719.43 PAIN- WRIST 03/09/2013 KAYE DO, KELLY K 724.2 BACK PAIN, LOWER 03/09/2013 KAYE DO, KELLY K 719.43 PAIN- WRIST 03/09/2013 KAYE DO, KELLY K 724.2 BACK PAIN, LOWER 03/09/2013 KAYE DO, KELLY K 719.43 PAIN- WRIST 03/09/2013 KAYE DO, KELLY K 724.2 BACK PAIN, LOWER 03/09/2013 KAYE DO, KELLY K 719.43 PAIN- WRIST 03/09/2013 KAYE DO, KELLY K 724.2 BACK PAIN, LOWER 03/09/2013 KAYE DO, KELLY K 719.43 PAIN- WRIST 03/09/2013 KAYE DO, KELLY K 724.2 BACK PAIN, LOWER 03/09/2013 KAYE DO, KELLY K 719.43 PAIN- WRIST 03/09/2013 KAYE DO, KELLY K 724.2 BACK PAIN, LOWER 03/09/2013 KAYE DO, KELLY K 719.43 PAIN- WRIST 03/09/2013 KAYE DO, KELLY K 724.2 BACK PAIN, LOWER 03/09/2013 KAYE DO, KELLY K 719.43 PAIN- WRIST 03/09/2013 KAYE DO, KELLY K 724.2 BACK PAIN, LOWER 03/09/2013 KAYE DO, KELLY K 719.43 PAIN- WRIST 03/09/2013 KAYE DO, KELLY K 724.2 BACK PAIN, LOWER 03/09/2013 KAYE DO, KELLY K 719.43 PAIN- WRIST 03/09/2013 KAYE DO, KELLY K 724.2 BACK PAIN, LOWER 03/09/2013 VERONICA INIGUEZ APRN 719.43 PAIN- WRIST 03/09/2013 INIGUEZNANCY CABAN, VERONICA Baxter 724.2 BACK PAIN, LOWER 03/09/2013 ROVERTO BOLANOS APRN 719.43 PAIN- WRIST 03/09/2013 ROVERTO BOLANOS APRN 724.2 BACK PAIN, LOWER 03/09/2013 KAYE DO, KELLY K 719.43 PAIN- WRIST 03/09/2013 KAYE DO, KELLY K 724.2 BACK PAIN, LOWER 04/02/2013 701.9 UNSPECIFIED HYPERTROPHIC AND ATROPHIC CONDITIONS OF SKIN 04/02/2013 701.9 UNSPECIFIED HYPERTROPHIC AND ATROPHIC CONDITIONS OF SKIN 04/02/2013 701.9 UNSPECIFIED HYPERTROPHIC AND ATROPHIC CONDITIONS OF SKIN 04/02/2013 KAYE DO, KELLY K 701.9 UNSPECIFIED HYPERTROPHIC AND ATROPHIC CONDITIONS OF SKIN 04/02/2013 KAYE DO, KELLY K 701.9 UNSPECIFIED HYPERTROPHIC AND ATROPHIC CONDITIONS OF SKIN 04/02/2013 KAYE DO, KELLY K 701.9 UNSPECIFIED HYPERTROPHIC AND ATROPHIC CONDITIONS OF SKIN 04/02/2013 KAYE DO, KELLY K 701.9 UNSPECIFIED HYPERTROPHIC AND ATROPHIC CONDITIONS OF SKIN 04/02/2013 KAYE DO, KELLY K 701.9 UNSPECIFIED HYPERTROPHIC AND ATROPHIC CONDITIONS OF SKIN 04/02/2013 KAYE DO, KELLY K 701.9 UNSPECIFIED HYPERTROPHIC AND ATROPHIC CONDITIONS OF SKIN 04/02/2013 KAYE DO, KELLY K 701.9 UNSPECIFIED HYPERTROPHIC AND ATROPHIC CONDITIONS OF SKIN 04/02/2013 KAYE DO, KELLY K 701.9 UNSPECIFIED HYPERTROPHIC AND ATROPHIC CONDITIONS OF SKIN 04/02/2013 KAYE DO, KELLY K 701.9 UNSPECIFIED HYPERTROPHIC AND ATROPHIC CONDITIONS OF SKIN 04/02/2013 KAYE DO, KELLY K 701.9 UNSPECIFIED HYPERTROPHIC AND ATROPHIC CONDITIONS OF SKIN 04/02/2013 VERONICA INIGUEZ APRN 701.9 UNSPECIFIED HYPERTROPHIC AND ATROPHIC CONDITIONS OF SKIN 04/02/2013 ROVERTO BOLANOS APRN 701.9 UNSPECIFIED HYPERTROPHIC AND ATROPHIC CONDITIONS OF SKIN 04/02/2013 KAYE DO, KELLY K 701.9 UNSPECIFIED HYPERTROPHIC AND ATROPHIC CONDITIONS OF SKIN 06/08/2013 789.00 ABDOMINAL PAIN UNSPECIFIED SITE 06/08/2013 KAYE DO, KLELY K 789.00 ABDOMINAL PAIN UNSPECIFIED SITE 06/08/2013 KAYE DO, KELLY K 789.00 ABDOMINAL PAIN UNSPECIFIED SITE 06/08/2013 KAYE DO, KELLY K 789.00 ABDOMINAL PAIN UNSPECIFIED SITE 06/08/2013 KAYE DO, KELLY K 789.00 ABDOMINAL PAIN UNSPECIFIED SITE 06/08/2013 KAYE DO, KELLY K 789.00 ABDOMINAL PAIN UNSPECIFIED SITE 06/08/2013 KAYE DO, KELLY K 789.00 ABDOMINAL PAIN UNSPECIFIED SITE 06/08/2013 KAYE DO, KELLY K 789.00 ABDOMINAL PAIN UNSPECIFIED SITE 06/08/2013 KAYE DO, KELLY K 789.00 ABDOMINAL PAIN UNSPECIFIED SITE 06/08/2013 KAYE DO, KELLY K 789.00 ABDOMINAL PAIN UNSPECIFIED SITE 06/08/2013 KAYE DO, KELLY K 789.00 ABDOMINAL PAIN UNSPECIFIED SITE 06/08/2013 VERONICA INIGUEZ APRN 789.00 ABDOMINAL PAIN UNSPECIFIED SITE 06/08/2013 ROVERTO BOLANOS APRN 789.00 ABDOMINAL PAIN UNSPECIFIED SITE 06/08/2013 KAYE DO, KELLY K 789.00 ABDOMINAL PAIN UNSPECIFIED SITE 06/15/2013 575.11 CHOLECYSTITIS , CHRONIC 06/15/2013 KAYE DO, KELLY K 575.11 CHOLECYSTITIS, CHRONIC 06/15/2013 KAYE DO, KELLY K 575.11 CHOLECYSTITIS, CHRONIC 06/15/2013 KAYE DO, KELLY K 575.11 CHOLECYSTITIS, CHRONIC 06/15/2013 KAYE DO, KELLY K 575.11 CHOLECYSTITIS, CHRONIC 06/15/2013 KAYE DO, KELLY K 575.11 CHOLECYSTITIS, CHRONIC 06/15/2013 KAYE DO, KELLY K 575.11 CHOLECYSTITIS, CHRONIC 06/15/2013 KAYE DO, KELLY K 575.11 CHOLECYSTITIS, CHRONIC 06/15/2013 KAYE DO, KELLY K 575.11 CHOLECYSTITIS, CHRONIC 06/15/2013 KAYE DO, KELLY K 575.11 CHOLECYSTITIS, CHRONIC 06/15/2013 KAYE DO, KELLY K 575.11 CHOLECYSTITIS, CHRONIC 06/15/2013 VERONICA INIGUEZ APRN 575.11 CHOLECYSTITIS, CHRONIC 06/15/2013 ROVERTO BOLANOS APRN 575.11 CHOLECYSTITIS, CHRONIC 06/15/2013 KAYE DO, KELLY K 575.11 CHOLECYSTITIS, CHRONIC 09/02/2013 KAYE DO, KELLY K 386.11 VERTIGO- BENIGN PAROXYSMAL POSITIONAL 09/02/2013 KAYE DO, KELLY K 386.11 VERTIGO- BENIGN PAROXYSMAL POSITIONAL 09/02/2013 KAYE DO, KELLY K 386.11 VERTIGO- BENIGN PAROXYSMAL POSITIONAL 09/02/2013 KAYE DO, KELLY K 386.11 VERTIGO- BENIGN PAROXYSMAL POSITIONAL 09/02/2013 KAYE DO, KELLY K 386.11 VERTIGO- BENIGN PAROXYSMAL POSITIONAL 09/02/2013 KAYE DO, KELLY K 386.11 VERTIGO- BENIGN PAROXYSMAL POSITIONAL 09/02/2013 KAYE DO, KELLY K 386.11 VERTIGO- BENIGN PAROXYSMAL POSITIONAL 09/02/2013 KAYE DO, KELLY K 386.11 VERTIGO- BENIGN PAROXYSMAL POSITIONAL 09/02/2013 VERONICA INIGUEZ APRN 386.11 VERTIGO- BENIGN PAROXYSMAL POSITIONAL 09/02/2013 ROVERTO BOLANOS APRN 386.11 VERTIGO- BENIGN PAROXYSMAL POSITIONAL 09/02/2013 KAYE DO, KELLY K 386.11 VERTIGO- BENIGN PAROXYSMAL POSITIONAL 12/21/2013 KAYE DO, KELLY K 386.10 VERTIGO, PERIPHERAL UNSPECIFIED 12/21/2013 KAYE DO, KELLY K 466.0 BRONCHITIS, ACUTE 12/21/2013 KAYE DO, KELLY K 386.10 VERTIGO, PERIPHERAL UNSPECIFIED 12/21/2013 KAYE DO, KELLY K 466.0 BRONCHITIS, ACUTE 12/21/2013 KAYE DO, KELLY K 386.10 VERTIGO, PERIPHERAL UNSPECIFIED 12/21/2013 KAYE DO, KELLY K 466.0 BRONCHITIS, ACUTE 12/21/2013 KAYE DO, KELLY K 386.10 VERTIGO, PERIPHERAL UNSPECIFIED 12/21/2013 KAYE DO, KELLY K 466.0 BRONCHITIS, ACUTE 12/21/2013 KAYE DO, KELLY K 386.10 VERTIGO, PERIPHERAL UNSPECIFIED 12/21/2013 KAYE DO, KELLY K 466.0 BRONCHITIS, ACUTE 12/21/2013 KAYE DO, KELLY K 386.10 VERTIGO, PERIPHERAL UNSPECIFIED 12/21/2013 KELLY KAYE DO K 466.0 BRONCHITIS, ACUTE 12/21/2013 KELLY KAYE DO K 386.10 VERTIGO, PERIPHERAL UNSPECIFIED 12/21/2013 KWASI KAYE DOA K 466.0 BRONCHITIS, ACUTE 12/21/2013 VERONICA INIGUEZ APRN 386.10 VERTIGO, PERIPHERAL UNSPECIFIED 12/21/2013 VERONICA INIGUEZ APRN 466.0 BRONCHITIS, ACUTE 12/21/2013 BRETROVERTO BENJAMIN APRN 386.10 VERTIGO, PERIPHERAL UNSPECIFIED 12/21/2013 ROVERTO BOLANOS APRN 466.0 BRONCHITIS, ACUTE 12/21/2013 KELLY KAYE DO K 386.10 VERTIGO, PERIPHERAL UNSPECIFIED 12/21/2013 KWASI KAYE DOA K 466.0 BRONCHITIS, ACUTE 02/22/2014 KWASI KAYE DOA K 723.1 CERVICALGIA 02/22/2014 KWASI KAYE DOA K 723.1 CERVICALGIA 02/22/2014 KWASI KAYE DOA K 723.1 CERVICALGIA 02/22/2014 KWASI KAYE DOA K 723.1 CERVICALGIA 02/22/2014 VERONICA INIGUEZ APRN 723.1 CERVICALGIA 02/22/2014 ROVERTO BOLANOS APRN 723.1 CERVICALGIA 02/22/2014 KAYE KWASI LAWSA K 723.1 CERVICALGIA 07/29/2014 ROVERTO BOLANOS APRN 599.0 URINARY TRACT INFECTION SITE NOT SPECIFIED 07/29/2014 KWASI KAYE DOA K 599.0 URINARY TRACT INFECTION SITE NOT SPECIFIED 11/12/2014 KELLY KAYE DO K 464.00 ACUTE LARYNGITIS WITHOUT OBSTRUCTION 02/19/2018 VERONICA INIGUEZ DA Ot 789.00 ABDOMINAL PAIN, UNSPECIFIED SITE Procedures Code [place] [address] THERAPUTIC INJ SQ/IM 11/29/2012 J1885 TORADOL INJ 11/29/2012 J2550 PHENERGAN INJECTION UP TO 50 MG 11/29/2012 07019 XRAY LUMBAR SPINE 2 OR 3 VIEWS 03/09/2013 37617 XRAY WRIST RIGHT 2 VIEWS 03/09/2013 10206 ROUTINE VENIPUNCTURE 06/08/2013 74665 CBC 06/09/2013 50874 AMYLASE 06/09/2013 74356 LIPASE 06/09/2013 1789888 GFR CALC (RESULT ONLY) 06/09/2013 10837 CMP 06/09/2013 16581 KUB 06/12/2013 17915 US ABDOMINAL ULTRASOUND, COMPLETE 06/15/2013 05827 CULTURE URINE 07/29/2014 77032 UA LONG DIP 07/29/2014 Results Test Result Range CULTURE, URINE - 12/04/17 14:27 CULTURE, URINE, ROUTINE SEE NOTE NRG Encounters ACCT No. Visit Date/Time Discharge Status Pt. Type Provider Facility Loc./Unit Complaint [id number] 06/12/2013 08:12:00 06/12/2013 23:59:59 CLS Outpatient VERONICA INIGUEZ CFNP [facility] RAD ABD PAIN [id number] 02/19/2018 21:16:00 ACT Emergency RASTA MARTINEZ, DEANN Marquez [facility] ER BACK PAIN [id number] 01/24/2015 17:44:00 01/24/2015 23:59:59 CLS Outpatient VARGAS DOKELLY [id number] 07/29/2014 08:57:00 07/29/2014 23:59:59 CLS Outpatient ROVERTO BOLANOS APRN [id number] 06/28/2014 15:02:00 06/28/2014 23:59:59 CLS Outpatient VERONICA INIGUEZ APRN [id number] 05/24/2014 16:35:00 05/24/2014 23:59:59 CLS Outpatient KAYE DOKELLY [id number] 04/28/2014 16:52:00 04/28/2014 23:59:59 CLS Outpatient KELLY KAYE DO [id number] 03/29/2014 10:31:00 03/29/2014 23:59:59 CLS Outpatient KAYE DOKELLY [id number] 03/01/2014 17:44:00 03/01/2014 23:59:59 CLS Outpatient VARGAS DOKELLY [id number] 01/18/2014 17:27:00 01/18/2014 23:59:59 CLS Outpatient KELLY KAYE DO [id number] 12/31/2013 10:25:00 12/31/2013 23:59:59 CLS Outpatient KELLY KAYE DO [id number] 12/21/2013 12:01:00 12/21/2013 23:59:59 CLS Outpatient KAYE DO, KELLY K [id number] 09/02/2013 13:28:00 09/02/2013 23:59:59 CLS Outpatient KELLY KAYE DO [id number] 07/29/2013 13:28:00 07/29/2013 23:59:59 CLS Outpatient KELLY KAYE DO [id number] 07/13/2013 09:54:00 07/13/2013 23:59:59 CLS Outpatient KELLY KAYE DO [id number] 12/19/2012 08:40:00 12/19/2012 23:59:59 CLS Outpatient VERONICA INIGUEZ APRN [id number] 11/29/2012 12:44:00 11/29/2012 23:59:59 CLS Outpatient [id number] 10/23/2012 09:14:00 10/23/2012 23:59:59 CLS Outpatient [id number] 10/10/2012 09:28:00 10/10/2012 23:59:59 CLS Outpatient VERONICA INIGUEZ APRN [id number] 08/27/2012 13:04:00 08/27/2012 23:59:59 CLS Outpatient [id number] 06/15/2013 18:12:00 Document Registration [id number] 05/25/2013 15:11:00 Document Registration [id number] 04/02/2013 14:27:00 Document Registration [id number] 03/19/2013 14:18:00 Document Registration [id number] 03/09/2013 09:59:00 Document Registration [id number] 01/29/2013 15:56:00 Document Registration [id number] 01/29/2018 11:20:00 01/29/2018 23:59:59 CLS Outpatient VERONICA INIGUEZ APRN [facility] [id number] 12/04/2017 14:00:00 Document Registration [id number] 09/26/2013 11:37:55 ACT Document Registration
[2018-02-19] MEDS ORDERED: ORPHENADRINE 60 MG/2 ML (NORFLEX) AMP IM ONE (21:45)
[2018-02-19] MEDS ORDERED: KETOROLAC 60 MG/2 ML VIAL IM ONE (21:45)
[2018-02-19] MEDS ORDERED: METF500T8 (21:47)
[2018-02-19] MEDS ORDERED: IBUP-1780 (21:47)
[2018-02-19] MEDS ORDERED: TRAM50TA2 (21:47)
[2018-02-19] MEDS ORDERED: OMEP40CA36 (21:47)
[2018-02-19] MEDS ORDERED: DICL75TA2 (21:47)
[2018-02-19] MEDS ORDERED: TRAZ-28 (21:47)
[2018-02-19] MEDS ORDERED: EXEN2PEN (21:47)
[2018-02-19] MEDS ORDERED: NITR100C10 (21:47)
[2018-02-19] MEDS ORDERED: CYCL10TA9 (21:47)
[2018-02-19] MEDS ORDERED: GABA-488 (21:47)
[2018-02-19] MEDS ORDERED: AZIT250T12 (21:47)
[2018-02-19] MEDS ORDERED: VENL100T2 (21:47)
--- NOTE | 2018-02-19 21:47 | ED Back Pain ---
General Chief Complaint: Back Problems Stated Complaint: BACK PAIN Source of Information: Patient Exam Limitations: No Limitations History of Present Illness Date Seen by Provider: February 19, 2018 Time Seen by Provider: 21:42 Initial Comments To ER with reports of pain in her back from her T spine down to her L spine. Pain radiates down the left leg to the left foot. She has a history of prior back surgery and has chronic numbness to the left third fourth and fifth toes. Shedoes report a heavy sensation in the foot which is unusual. She denies any bowel or bladder loss of control or loss of sensation to her genitals. No fevers or chills. No falls or trauma. She states that she has seen a back surgeon in [place] who wanted her to lose weight couple of months ago. She did have an MRI about 6-8 months ago. She takes tramadol at night which she states is not helpful. She takes Flexeril which she also states is not helpful. She denies any urinary frequency or burning or urinary symptoms. Location: Lumbar Spine, Paraspinous Muscles Timing/Duration: 2-3 Days, Getting Worse Severity: Moderate Radiation: Lower Legs Allergies and Home Medications Allergies Coded Allergies: No Known Drug Allergies (Unverified , 02/19/18) Patient Home Medication List Home Medication List Reviewed: Yes Constitutional: see HPI; No chills, No fever EENTM: see HPI Respiratory: no symptoms reported Cardiovascular: no symptoms reported Genitourinary: no symptoms reported; No dysuria, No frequency Musculoskeletal: see HPI, back pain Skin: no symptoms reported Psychiatric/Neurological: No Symptoms Reported Past [id number] Hx Patient Social History Alcohol Use: Occasionally Uses Recreational Drug Use: No Smoking Status: Never a Smoker Recent Foreign Travel: No Contact w/Someone Who Travel: No Recent Hopitalizations: No Physical Abuse: No Sexual Abuse: No Mistreated: No Seasonal Allergies Seasonal Allergies: No Past Medical History Surgeries: Yes (vaginal prolapse repair, carpal tunnnel, back) Hysterectomy, Orthopedic, Tonsillectomy Cardiac: Yes Hypertension Neurological: No Genitourinary: No Gastrointestinal: No Musculoskeletal: Yes Chronic Back Pain Endocrine: Yes Diabetes, Non-Insulin dep HEENT: No Cancer: No Psychosocial: No Nursing Suicide Risk Score: 0 Blood Disorders: No Physical Exam Vital Signs Capillary Refill : General Appearance: No Apparent Distress, WD/WN, Obese HEENT: PERRL/EOMI, TMs Normal Neck: Full Range of Motion, Normal Inspection Respiratory: Normal Breath Sounds, No Accessory Muscle Use, No Respiratory Distress Gastrointestinal: Non Tender, Soft Extremity: Normal Capillary Refill, Normal Inspection Neurologic/Psychiatric: Alert, Oriented x3, No Motor/Sensory Deficits Skin: Normal Color, Warm/Dry Comments The left foot plantar flexion and dorsiflexion strength is 4 out of 5 as compared with the right which is 5 out of 5. Progress/Results/Core Measures My Orders Orders - FINN CHANG APRN Ketorolac Injection (Toradol Injection) (02/19/18 21:45) Departure Impression Primary Impression: Lumbar radiculopathy Disposition: HOME, SELF-CARE Condition: Stable Departure-Patient Inst. Decision time for Depature: 21:46 Referrals: [facility] [place] (PCP/Family) Primary Care Physician Patient Instructions: Low Back Pain (DC) Add. Discharge Instructions: 1. Call the back surgeon who you formerly saw in [place] to make an appointment for follow-up as soon as possible. Take steroids as directed in addition to the new muscle relaxer. All discharge instructions reviewed with patient and/or family. Voiced understanding. Scripts Metaxalone (Skelaxin) 800 Mg Tablet 800 MG PO Q8H PRN for PAIN-MODERATE TO SEVERE, #20 TAB Prov: FINN CHANG APRN 02/19/18 Prednisone (Prednisone) 20 Mg Tab 40 MG PO DAILY, #8 TAB Prov: FINN CHANG APRN 02/19/18 Work/School Note: Work Release Form Date Seen in the Emergency Department: February 20, 2018 Return to Work: February 19, 2018 FINN CHAGN APRN February 19, 2018 21:47
[2018-02-19] MEDS ORDERED: NF-SKEL800 PO (21:50)
[2018-02-19] MEDS ORDERED: PRD20T PO (21:50)
[2018-02-19 22:18] VITALS: BP 125/79
== END 2018-02-19 22:18 | disposition home or self-care (01) ==
LOC: EDUNIT# 21:14 → ER 21:16
DX: M54.16 Radiculopathy, lumbar region (principal); I10 Essential (primary) hypertension; E11.9 Type 2 diabetes mellitus without complications; Z90.89 Acquired absence of other organs; Z90.710 Acquired absence of both cervix and uterus
CPT/HCPCS: 96372; 99284

== ENCOUNTER 2018-07-15 10:18 | Outpatient (CLI) | payer OTHER ==
[~2018-07-15] VITALS: Ht 170.2 cm; Wt 163.3 kg
[~2018-07-15 10:18] MED LIST: AZIT250T12; CYCL10TA9; DICL75TA2; EXEN2PEN; GABA-488; IBUP-1780 PO; METF500T8 PO; NF-SKEL800 PO; NITR100C10; OMEP40CA36 PO; PRD20T PO; TRAM50TA2 PO; TRAZ-189 PO; VENL100T2 PO
[2018-07-15] MEDS ORDERED: DULO60CA6 PO (14:56)
[2018-07-15] MEDS ORDERED: VIT1CAPS14 PO (14:56)
[2018-07-15] MEDS ORDERED: NITR100C PO (14:56)
== END 2018-07-15 15:00 | disposition home or self-care (01) ==
LOC: PREOP 10:18
PROVIDERS: ATTEND Obstetrics & Gynecology
DX: Z01.818 Encounter for other preprocedural examination (principal)

== ENCOUNTER → 2018-07-18 | Outpatient (CLI) | payer SELFPAY ==
[~2018-07-18] MED LIST changes: +DOCU100C37 PO; +DULO60CA6 PO; +HYDR-34 PO; +IBUP-844 PO; +NITR100C PO; +SIME80TA16 PO; +VIT1CAPS14 PO
== END ==
LOC: LAB 13:48
PROVIDERS: ATTEND Obstetrics & Gynecology
DX: Z01.812 Encounter for preprocedural laboratory examination (principal)
CPT/HCPCS: 86850; 86870; 86900; 86901; 86902

== ENCOUNTER 2018-07-24 05:52 | Day surgery (SDC) | payer OTHER ==
[~2018-07-24] VITALS: Ht 170.2 cm; Wt 163.3 kg
[~2018-07-24 05:52] MED LIST changes: -DOCU100C37 PO; -HYDR-34 PO; -IBUP-844 PO; -SIME80TA16 PO
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
--- OUTSIDE RECORDS SUMMARY | 2018-07-24 05:59 | XMS REPORT ---
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 Active 79402177 Problem Intractable migraine with aura without status migrainosus G43.119 Active 820543830 Problem Radiculopathy of lumbar region M54.16 Active 285443538 Problem History of partial hysterectomy Z90.711 Active 615143186 Problem Depression with anxiety F41.8 Active 236161387 Problem Carpal tunnel syndrome of right wrist G56.01 Active 81445558 Problem Hyperlipemia E78.5 Active 20465340 Problem Morbid obesity E66.01 Active 816299256 Problem Neuropathic arthropathy M14.60 Active 81640972 Problem Controlled type 2 diabetes mellitus without complication, without long -term current use of insulin E11.9 Active 083868901 Problem BMI 50.0-59.9, adult Z68.43 Active 133773175 Problem Acne rosacea L71.9 Active 596876748 Problem Metabolic syndrome E88.81 Active 927021200 Problem Headache R51 Active 53017832 Problem Chronic pain G89.29 Active 96929955 Problem GERD (gastroesophageal reflux disease) K21.9 Active 214644875 Problem Myalgia M79.1 Active 51604287 Problem Lumbago with sciatica, left side M54.42 Active 457264082 Problem Neck pain M54.2 Active 54922324 Problem Plantar fasciitis M72.2 Active 131555750 Problem Anxiety associated with depression F41.8 Active 354500947 Problem Spinal stenosis of lumbar region M48.06 Active 72575458 ALLERGIES No Information ENCOUNTERS Encounter Location Date Diagnosis [address] [id number] May, Dysuria R30.0 [place] [id number] [place] [address] [id number] Apr, [address] [place] [address] [id number] Apr, [address] [place] [address] [id number] Apr, Radiculopathy of lumbar region M54.16 and Morbid obesity E66.[address] [place] [address] [id number] Apr, Well woman exam with routine gynecological exam Z01.419 ; Screening breast examination Z12.31 ; High risk heterosexual behavior Z72.51 ; BMI 50.0- 59.9, adult Z68.43 ; Pain emptying bladder R30.9 ; Pelvic pain R10.2 and History of partial hysterectomy Z90.711 [place] [id number] [place] [address] [id number] Mar, BMI 50.0-59.9, adult Z68.43 ; Acute cystitis without hematuria N30.00 and Intractable migraine with aura without status migrainosus G43.119 [address] [place] [address] [id number] Mar, Neuropathic arthropathy M14.60 ; GERD (gastroesophageal reflux disease) K21.9 and Controlled type 2 diabetes mellitus without complication, without long -term current use of insulin E11.9 [address] [id number] February, Neuropathic arthropathy M14.60 [address] [place] [address] [id number] February, Neuropathic arthropathy M14.60 ; Spinal stenosis of lumbar region M48.06 and BMI 50.0-59.9, adult Z68.43 [address] [id number] February, BMI 50.0-59.9, adult Z68.43 [place] [id number] [id number] February, Radiculopathy of lumbar region M54.16 [facility] [id number] [place] [address] [id number] February, Radiculopathy of lumbar region M54.16 and Infective urethritis N34.2 [facility] [address] [id number] Jan, Neuropathic arthropathy M14.60 [facility] [address] [place] [address] [id number] Jan, BMI 50.0-59.9, adult Z68.43 ; Controlled type 2 diabetes mellitus without complication, without long-term current use of insulin E11.9 and Neuropathic arthropathy M14.60 [address] [place] [address] [id number] Dec, Carpal tunnel syndrome of right wrist G56.01 and 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 [facility] [id number] [place] [address] [id number] Dec, BMI 50.0-59.9, adult Z68.43 ; Acne rosacea L71.9 ; Neuropathic arthropathy M14.60 and GERD (gastroesophageal reflux disease) K21.9 [facility] [address] [id number] Nov, [address] [place] [address] [id number] Nov, Infective urethritis N34.2 [facility] [address] [id number] Nov, Skin tag L91.8 and BMI 50.0-59.9, adult Z68.43 [facility] [address] [address] Oct, Neuropathic arthropathy M14.60 [facility] [address] [id number] [id number] Oct, 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 [id number] [id number] Sep, Radiculopathy of lumbar region M54.16 and Neuropathic arthropathy M14.60 [facility] [address] [id number] Sep, Controlled type 2 diabetes mellitus without complication, without long- term current use of insulin E11.9 [address] [place] [address] [id number] Sep, Controlled type 2 diabetes mellitus without complication, without long- term current use of insulin E11.9 [address] [place] [address] [id number] Sep, [address] [place] [address] [id number] Sep, 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 ; Neuropathic arthropathy M14.60 and BMI 50.0-59.9, adult Z68.[id number] [place] [address] [id number] Sep, Controlled type 2 diabetes mellitus without complication, without long- term current use of insulin E11.9 ; Dysuria R30.0 ; 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 and Morbid obesity E66.[address] [id number][place] [id number] Aug, [facility] 120 [facility] [id number] [id number] Jul, Morbid obesity E66.01 [facility] [address] [facility] [place] [id number] [address] [address] Jul, Morbid obesity E66.[id number] [place] [address] [id number] Jul, Morbid obesity E66.01 ; Encounter for immunization Z23 ; Insect bite ( nonvenomous), left ankle, initial encounter S90.562A ; Bitten or stung by nonvenomous insect and other nonvenomous arthropods, initial encounter W57.XXXA and Acute cystitis without hematuria N30.00 [facility] [address] [id number] [place] [address] [id number] Jun, GERD (gastroesophageal reflux disease) K21.9 [facility] [id number] [place] [address] [id number] Jun, [place] [id number] [place] [address] [id number] Jun, Morbid obesity E66.01 [facility] [address] [place] [id number] [place] [address] [id number] May, [place] [id number] [place] [address] [id number] May, [place] [id number] [place] [address] [id number] May, Intractable migraine with aura without status migrainosus G43.119 and Vertigo R42 [facility] [id number] [place] [address]66- 7399 Apr, [place] [id number] [place] [address] [id number] Apr, Radiculopathy of lumbar region M54.16 ; 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 ; Morbid obesity E66.01 ; Depression with anxiety F41.8 ; Metabolic syndrome E88.81 and GERD ( gastroesophageal reflux disease) K21.9 [facility] [address] [place] [address] [id number] February, [address] [place] [address] [id number] February, Spinal stenosis of lumbar region M48.06 and Anxiety associated with depression F41.8 [place] [id number] [place] [address] [id number] February, Anxiety associated with depression F41.8 [place] [id number] [id number] February, Low back pain M54.5 [address] [id number] February, Low back pain M54.5 and Myalgia M79.1 [facility] [id number] [place] [address] [id number] Jan, [address] [place] [address] [id number] Jan, Anxiety associated with depression F41.8 [facility] [id number] [place] [address] 71385- 4466 Jan, [address] [id number], [place] [id number] Jan, Metabolic syndrome E88.81 [address] [place] [address] [id number] Jan, Lumbago with sciatica, left side M54.42 and Plantar fasciitis M72.2 [place] [address] [address] [id number] [place] [address] 69969- 1661 Dec, [address] [id number] Dec, Myalgia M79.1 and Anxiety associated with depression F41.8 [address] [id number] Nov, Myalgia M79.[address] [id number], [place] [id number] Aug, [facility] [address] [id number][place] [id number] Aug, Upper respiratory tract infection, unspecified type J06.9 ; Encounter for immunization Z23 and Tinea pedis of left foot B35.3 [facility] [id number] [place] [address] 06785- 4487 Aug, [facility] [address] [place] [address] 85609- 4837 Jul, Dental examination Z01.20 [facility] [address] [id number], [place] [id number] Apr, Anxiety associated with depression F41.8 [facility] [address] [id number], [place] [id number] Apr, Depression with anxiety F41.8 ; Morbid obesity E66.01 ; GERD ( gastroesophageal reflux disease) K21.9 ; Metabolic syndrome E88.81 and Headache R51 [facility] [address] [id number], [place] [id number] Apr, [address] [id number] [id number] Apr, Carpal tunnel syndrome of left wrist G56.02 and Muscle spasm M62.838 [facility] [address] [place] [address] [id number]- 6718 Mar, Carpal tunnel syndrome of left wrist G56.[address] [id number], [place] [id number] Mar, Left elbow pain M25.522 [facility] [address] [place] [address] 93890040- 7037 February, Dental examination Z01.20 [facility] [address] [id number], [place] [id number] February, Acute pain of left shoulder M25.512 ; Left elbow pain M25.522 ; Renal insufficiency N28.9 and Metabolic syndrome E88.[address] [id number], [place] [id number] February, [address] [id number], [place] [id number] February, Neck pain M54.2 ; Metabolic syndrome E88.81 ; Morbid obesity E66.01 ; Bilateral headaches R51 and Dizziness R42 [facility] [address] [id number], [place] [id number] Oct, Dizziness R42 and History of panic attacks Z86.[address] [id number], [place] [id number] Oct, Neck pain M54.2 ; Metabolic syndrome E88.81 ; Headache R51 and Diarrhea R19.[address] [id number], [place] [id number] Oct, [place] [id number] [id number] Oct, Diarrhea R19.7 ; Dehydration E86.0 and Headache R51 [address], [place] [id number] Sep, Metabolic syndrome E88.81 ; GERD (gastroesophageal reflux disease ) K21.9 ; Diarrhea R19.7 ; Dehydration E86.0 and Hyperlipemia E78.[address] [id number], [place] [id number] Aug, [address] [place] [address] [id number] Aug, Morbid obesity E66.01 ; Viral syndrome B34.9 ; Hyperlipemia E78.5 ; Chronic pain G89.29 ; Exercise counseling Z71.89 ; Cough R05 ; Depression with anxiety F41.8 ; Dietary counseling Z71.3 ; Fever blister B00.1 and GERD ( gastroesophageal reflux disease) K21.9 [place] [id number] [id number] Aug, Viral syndrome B34.9 ; Cough R05 and Fever blister B00.[address] [id number], [place] [id number] Aug, Morbid obesity E66.01 ; Exercise counseling Z71.89 ; Dietary counseling Z71.3 ; Hyperlipemia E78.5 ; Chronic pain G89.29 ; Depression with anxiety F41.8 and GERD (gastroesophageal reflux disease) K21.9 [place] [id number] [id number] Jun, Contact dermatitis 692.9 [address] [place] [address] [id number] Jun, GERD (gastroesophageal reflux disease) 530.81 and Hyperlipidemia 272.4 [place] [id number] [place] [address] [id number] May, Hyperlipidemia 272.4 and Headache 784.0 [place] [id number] [place] [address] [id number] Mar, [address] [place] [address] [id number] Mar, Asthma 493.90 [place] [id number] [place] [address] [id number] Mar, [place] [id number] [place] [address] [id number] February, Suspicious nevus 238.[address] [id number] February, Depression 311 and Hyperlipidemia 272.4 [place] [id number] [place] [address] [id number] February, [place] [address] [place] [address] [id number] February, Anxiety state 300.00 ; Screening for lipid disorders V77.91 ; Screening for hypothyroidism V77.0 and Depressive disorder, not elsewhere classified [address] [place] [address] [place] [address] [id number] Jan, Anxiety state, unspecified 300.00 ; Depression 311 and Headache 784.0 [address] [place] [address] [id number] Jan, [facility] [id number] [place] [address] 85291 2546 Jan, [facility] [address] [id number] [place] [address] 29851 2545 Jan, [facility] [id number] [place] [address] 29711 2546 Nov, [address] [place] [address] [id number] Nov, [address] [id number] Nov, [facility] [place] [facility] [address] [facility] [id number] [place] [address]- [address] Nov, [facility] [address] [id number] [place] [id number] Nov, [facility] [place] [facility] [address] [facility] [id number] [place] [address]- 6590 Nov, [facility] [address] [facility] [id number], [place] [id number] Oct, [facility] [place] [facility] [address] [facility] [id number][place] [address]- 3390 Oct, [facility] [address] [facility] [id number] [place] [id number] Sep, [facility] [place] [facility] [address], [place] [address]- 5144 Sep, [facility] [address] [facility] [id number], [place] [id number] Jul, [facility] [place] [facility] [address] [facility] [id number][place] [address]- 6128 Jul, [facility] [address] [facility] [id number], [place] [id number] Jul, [facility] [place] [facility] [address] [facility] [id number][place] [address]- 2017 Jul, [facility] [place] [facility] [address] [facility] [id number][place] [address]- 3663 Jul, [facility] [address] [facility] [id number], [place] [id number] Jul, [facility] [address] [facility] [id number] [place] [id number] Jul, [facility] [place] [facility] [address] [facility] [id number][place] [address]- 1990 Jul, [facility] [address] [facility] [id number] [place] [id number] Jun, [facility] [place] [facility] [address] [facility] [id number] [place] [address]- 2546 Jun, [facility] [address] [id number] [place] [id number] May, [facility] [place] [facility] [address] [facility] [id number] [place] [address] 2546 May, [facility] [place] [facility] [address] [facility] [id number] [place] [address]- 9696 Apr, [facility] [address] [id number] [place] [id number] Apr, [facility] [place] [facility] [address] [facility] [id number] [place] [address]- 5540 Apr, [facility] [address] [id number] [place] [id number] Mar, [facility] [place] [facility] [address] [facility] [id number] [place] [address]- 1336 Mar, [facility] [address] [id number], [place] [id number] Mar, [facility] [address] [id number] [place] [id number] Mar, [facility] [place] [facility] [address] [facility] [id number] [place] [address]- 5906 Mar, [facility] [place] [facility] [address] [facility] [id number][place] [address]- 6259 Mar, [facility] [address] [facility] [id number], [place] [id number] February, [facility] [place] [facility] [address] [facility] [id number][place] [address]- 5886 February, [facility] [address] [facility] [id number] [place] [id number] February, [facility] [place] [facility] [address] [facility] [id number] [place] [address]- 3756 February, [facility] [address] [facility] [id number] [place] [id number] Jan, [facility] [place] [facility] [address] [facility] [id number][place] [address]- 7267 Jan, [facility] [address] [id number] [place] [id number] Dec, [facility] [place] [facility] [address] [facility] [id number] [place] [address]- 3546 Dec, [facility] [address] [facility] [id number] [place] [id number] Dec, [facility] [place] [facility] [address] [facility] [id number][place] [address]- 2666 Dec, [facility] [address] [id number] [place] [id number] Dec, [facility] [address] [facility] [id number] [place] [id number] Dec, [facility] [place] [facility] [address] [facility] [id number] [place] [address] 2546 Dec, [facility] [place] [facility] [address] [facility] [id number][place] [address]- 9802 Dec, [facility] [address] [facility] [id number] [place] [id number] Nov, [facility] [place] [facility] [address] [facility] [id number][place] [address]- 5096 Nov, [facility] [address] [facility] [id number] [place] [id number] Oct, [facility] [place] [facility] [address] [facility] [id number][place] [address]- 0578 Oct, [facility] [place] [facility] [address] [facility] [id number][place] [address]- 4149 Sep, [facility] [place] [facility] [address] [facility] [id number][place] [address]- 3306 Sep, [facility] [address] [facility] [id number] [place] [id number] Sep, [facility] [place] [facility] [address] [facility] [id number][place] [address]- 9306 Sep, [facility] [address] [facility] [id number], [place] [id number] Aug, [facility] [address] [id number] [place] [address]- 8966 Aug, [facility] [place] [facility] [address] [id number] [place] [address]- 1103 Jul, [facility] [place] [facility] [address] [id number] [place] [address]- 8339 Jul, [facility] [place] [facility] [address] [id number] [place] [address]- 1740 Jul, [facility] [address] [facility] [id number] [place] [id number] Jul, [facility] [place] [facility] [address] [id number] [place] [address]- 7796 Jul, [facility] [place] [facility] [id number] [place] [address]- 4432 Jul, [facility] [address] [facility] [id number][place] [address]- 7945 Jul, [facility] [address] [facility] [id number] [place] [id number] Jul, [facility] [address] [facility] [id number][place] [address]- 2986 Jul, [facility] [address] [facility] [id number], [place] [id number] Jun, [facility] [address] [facility] [id number], [place] [id number] May, [facility] [place] [facility] [address] [id number] [place] [address]- 2255 May, [facility] [place] [facility] [address] [facility] [id number] [place] [address]- 2293 May, [facility] [place] [facility] [address] [facility] [id number] [place] [address]- 3725 May, [facility] [place] [facility] [address] [facility] [id number][place] [address]- 2546 May, [facility] [address] [id number] [place] [id number] May, [facility] [address] [id number] [place] [id number] May, [facility] [address] [id number] [place] [id number] Apr, [facility] [address] [facility] [place] [id number] [address] Mar, [facility] [address] [id number] [place] [id number] Mar, [facility] [address] [id number] [place] [id number] February, [facility] [address] [facility] [place] [id number][place] [address] February, [facility] [address] [id number] [place] [id number] February, [facility] [address] [id number] [place] [id number] Jan, [facility] [address] [id number] [place] [id number] Jan, [facility] [address] [id number] [place] [id number] Dec, [facility] [address] [id number] [place] [id number] Dec, [facility] [id number] [address] Nov, [facility] [address] [facility] [place] [id number] [address] Nov, [facility] [address] [id number] [place] [id number] Oct, [facility] [address] [id number] [place] [id number] Oct, [facility] [address] [id number] [place] [id number] Sep, [facility] [place] [facility] [address] [id number] [address] Sep, [facility] [address] [id number] [place] [id number] Aug, [facility] [place] [facility] [address] [facility] [place] [id number][place] [address] Aug, [facility] [address] [facility] [place] [id number][place] [address] May, [facility] [address] [id number] [place] [id number] May, [facility] [address] [id number] [place] [id number] May, [facility] [place] [facility] [address] [facility] [place] [id number][place] [address] Apr, [facility] [address] [id number] [place] [id number] Apr, [facility] [address] [id number] [place] [id number] Apr, [facility] [address] [id number] [place] [id number] Apr, [facility] [address] [id number] [place] [id number] Mar, [facility] [address] [id number][place] [id number] Mar, [facility] [address] [facility] [place] [id number][place] [address] Mar, [facility] [place] [facility] [address] [facility] [place] [id number][place] [address] February, [facility] [address] [id number] [place] [id number] February, [facility] [address] [id number] [place] [id number] February, [facility] [facility] [address] [id number] [place] [id number] Dec, [facility] [place] [address] [id number] [place] [id number] Dec, [facility] [place] [address] [id number] [place] [id number] Dec, [facility] [place] [address] [id number] [place] [id number] Dec, [facility] [place] [address] [id number] [place] [id number] Dec, [facility] [place] [address] [id number] [place] [id number] Dec, [facility] [place] [address] [id number] [place] [id number] Dec, [facility] [place] [address] [id number] [place] [id number] Nov, [facility] [address] [facility] [id number] [address] Nov, [facility] [place] [address] [id number] [place] [id number] Nov, [facility] [place] [address] [id number] [place] [id number] Oct, [facility] [id number] [address] Oct, [facility] [place] [address] [id number] [place] [id number] Oct, [facility] [id number] [address] Oct, [facility] [address] [facility] [place] [id number][place] [address] Sep, [facility] [address] [facility] [place] [id number] [address] Sep, [facility] [address] [facility] [place] [id number][place] [address] Sep, [facility] [id number] [address] Aug, [facility] [address] [id number] [place] [address] Jul, 2011 [facility] [address] [facility] [place] [id number] [place] [address] Jul, [facility] [address] [facility] [place] [id number] [address] February, [facility] [address] [facility] [place] [id number] [place] [address] Jan, IMMUNIZATIONS No Known Immunizations SOCIAL HISTORY Never Assessed REASON FOR VISIT referral PLAN OF CARE VITAL SIGNS MEDICATIONS Unknown [...]
--- OUTSIDE RECORDS SUMMARY | 2018-07-24 06:00 | XMS REPORT ---
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 Active 91971336 Problem Intractable migraine with aura without status migrainosus G43.119 Active 141213206 Problem Radiculopathy of lumbar region M54.16 Active 965910047 Problem History of partial hysterectomy Z90.711 Active 525689678 Problem Depression with anxiety F41.8 Active 417962153 Problem Carpal tunnel syndrome of right wrist G56.01 Active 01414914 Problem Hyperlipemia E78.5 Active 79629903 Problem Morbid obesity E66.01 Active 958202281 Problem Neuropathic arthropathy M14.60 Active 80097201 Problem Controlled type 2 diabetes mellitus without complication, without long -term current use of insulin E11.9 Active 308748023 Problem BMI 50.0-59.9, adult Z68.43 Active 940861939 Problem Acne rosacea L71.9 Active 524052369 Problem Metabolic syndrome E88.81 Active 641813210 Problem Headache R51 Active 92391599 Problem Chronic pain G89.29 Active 27435337 Problem GERD (gastroesophageal reflux disease) K21.9 Active 482598564 Problem Myalgia M79.1 Active 74577651 Problem Lumbago with sciatica, left side M54.42 Active 373526359 Problem Neck pain M54.2 Active 82960855 Problem Plantar fasciitis M72.2 Active 156057451 Problem Anxiety associated with depression F41.8 Active 439676515 Problem Spinal stenosis of lumbar region M48.06 Active 20316756 ALLERGIES Substance Reaction Event Type Date Status Gabapentin headache Drug Allergy Mar, Active ENCOUNTERS Encounter Location Date Diagnosis [facility] [id number] [id number] May, Dysuria R30.0 [place] [id number] [place] [address] [id number] Apr, [facility] [id number] [place] [address] [id number] Apr, [facility] [id number] [place] [address] [id number] Apr, Radiculopathy of lumbar region M54.16 and Morbid obesity E66.01 [place] [id number] [place] [address] [id number] Apr, Well woman exam with routine gynecological exam Z01.419 ; Screening breast examination Z12.31 ; High risk heterosexual behavior Z72.51 ; BMI 50.0- 59.9, adult Z68.43 ; Pain emptying bladder R30.9 ; Pelvic pain R10.2 and History of partial hysterectomy Z90.711 [place] [id number] [place] [address] [id number] Mar, BMI 50.0-59.9, adult Z68.43 ; Acute cystitis without hematuria N30.00 and Intractable migraine with aura without status migrainosus G43.119 [place] [address] [id number] [place] [address] [id number] Mar, Neuropathic arthropathy M14.60 ; GERD (gastroesophageal reflux disease) K21.9 and Controlled type 2 diabetes mellitus without complication, without long -term current use of insulin E11.9 [place] [id number] [id number] February, Neuropathic arthropathy M14.[address] [place] [address] [id number] February, Neuropathic arthropathy M14.60 ; Spinal stenosis of lumbar region M48.06 and BMI 50.0-59.9, adult Z68.43 [facility] [id number] [place] [address] [id number] February, BMI 50.0-59.9, adult Z68.43 [place] [address] [address] [id number] [id number] February, Radiculopathy of lumbar region M54.16 [facility] [place] [id number], [place] [id number] February, Radiculopathy of lumbar region M54.16 and Infective urethritis N34.2 [facility] [address]00565100[place] [address] Jan, Neuropathic arthropathy M14.60 [facility] [place] [id number] [place] [address] [id number] Jan, BMI 50.0-59.9, adult Z68.43 ; Controlled type 2 diabetes mellitus without complication, without long-term current use of insulin E11.9 and Neuropathic arthropathy M14.[address] [place] [address] [id number] Dec, Carpal tunnel syndrome of right wrist G56.01 and 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 [facility] [place] [id number], [place] [id number] Dec, BMI 50.0-59.9, adult Z68.43 ; Acne rosacea L71.9 ; Neuropathic arthropathy M14.60 and GERD (gastroesophageal reflux disease) K21.9 [facility] [place] [address]00565100[place] [id number] Nov, [address] [place] [address] [id number] Nov, Infective urethritis N34.2 [facility] [address]00565100[place] [address] Nov, Skin tag L91.8 and BMI 50.0-59.9, adult Z68.43 [facility] [address]00565100[place], [place] [address] Oct, Neuropathic arthropathy M14.60 [facility] [address] [place] [id number], [place] [address] Oct, 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 [id number], [place] [address] Sep, Radiculopathy of lumbar region M54.16 and Neuropathic arthropathy M14.60 [address]00565100[place], [place] [address] Sep, Controlled type 2 diabetes mellitus without complication, without long- term current use of insulin E11.[address] [place] [address] [id number] Sep, Controlled type 2 diabetes mellitus without complication, without long- term current use of insulin E11.9 [address] [place] [address] [id number] Sep, [address] [place] [address] [id number] Sep, 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 ; Neuropathic arthropathy M14.60 and BMI 50.0-59.9, adult Z68.43 [address] [place] [address] [id number] Sep, Controlled type 2 diabetes mellitus without complication, without long- term current use of insulin E11.9 ; Dysuria R30.0 ; 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 and Morbid obesity E66.[address] [id number] [id number] Aug, [address] [id number], [place] [id number] Jul, Morbid obesity E66.01 [facility] [address] [facility] [id number], [place] [address] Jul, Morbid obesity E66.[address] [id number], [place] [address] Jul, Morbid obesity E66.01 ; Encounter for immunization Z23 ; Insect bite ( nonvenomous), left ankle, initial encounter S90.562A ; Bitten or stung by nonvenomous insect and other nonvenomous arthropods, initial encounter W57.XXXA and Acute cystitis without hematuria N30.00 [place] [id number] [place] [address] [id number] Jun, GERD (gastroesophageal reflux disease) K21.9 [facility] [address] [place] [address] [id number] Jun, [place] [id number] [place] [address] [id number] Jun, Morbid obesity E66.01 [facility] [address] [place] [id number] [place] [address] [id number] May, [place] [id number] [place] [address] [id number] May, [place] [id number] [place] [address] [id number] May, Intractable migraine with aura without status migrainosus G43.119 and Vertigo R42 [facility] [address] [place] [id number] [place] [address]- [address]609 Apr, [place] [id number] [place] [address] [id number] Apr, Radiculopathy of lumbar region M54.16 ; 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 ; Morbid obesity E66.01 ; Depression with anxiety F41.8 ; Metabolic syndrome E88.81 and GERD ( gastroesophageal reflux disease) K21.9 [address]00565100[place] [address] February, [address] [place] [address] [id number] February, Spinal stenosis of lumbar region M48.06 and Anxiety associated with depression F41.8 [place] [id number] [place] [address] [id number] February, Anxiety associated with depression F41.8 [address]00565100[place] [address] February, Low back pain M54.5 [place] [id number] [address] February, Low back pain M54.5 and Myalgia M79.[address] [place] [address] [id number] Jan, [place] [id number] [place] [address] [id number] Jan, Anxiety associated with depression F41.8 [facility] [address] [place] [id number] [place] [address] 17311271- 6316 Jan, [address] [id number], [place] [id number] Jan, Metabolic syndrome E88.[address] [place] [address] [id number] Jan, Lumbago with sciatica, left side M54.42 and Plantar fasciitis M72.2 [place] [address] [address] [place] [id number] [place] [address] 90787- 9006 Dec, [address] [place] [address] [id number] Dec, Myalgia M79.1 and Anxiety associated with depression F41.[address] [place] [address] [id number] Nov, Myalgia M79.[address] [id number], [place] [id number] Aug, [facility] [id number] [place] [address] [id number] Aug, Upper respiratory tract infection, unspecified type J06.9 ; Encounter for immunization Z23 and Tinea pedis of left foot B35.3 [facility] [address] [place] [id number] [place] [address]65- 6256 Aug, [facility] [address] [place] [id number] [place] [address] 56053- 7777 Jul, Dental examination Z01.20 [facility] [address] [id number], [place] [id number] Apr, Anxiety associated with depression F41.8 [facility] [address] [id number][place] [address] Apr, Depression with anxiety F41.8 ; Morbid obesity E66.01 ; GERD ( gastroesophageal reflux disease) K21.9 ; Metabolic syndrome E88.81 and Headache R51 [facility] [address] [id number], [place] [id number] Apr, [address] [id number], [place] [id number] Apr, Carpal tunnel syndrome of left wrist G56.02 and Muscle spasm M62.838 [facility] [address]00565100[place], [place] [address] Mar, Carpal tunnel syndrome of left wrist G56.02 [facility] [address] [id number], [place] [id number] Mar, Left elbow pain M25.522 [facility] [address] [place] [address] 31532- 3067 February, Dental examination Z01.20 [facility] [address] [id number], [place] [id number] February, Acute pain of left shoulder M25.512 ; Left elbow pain M25.522 ; Renal insufficiency N28.9 and Metabolic syndrome E88.81 [place] [id number] [id number] February, [facility] [address] [id number][place] [id number] February, Neck pain M54.2 ; Metabolic syndrome E88.81 ; Morbid obesity E66.01 ; Bilateral headaches R51 and Dizziness R42 [facility] [address] [id number], [place] [id number] Oct, Dizziness R42 and History of panic attacks Z86.59 [facility] [place] [id number] [place] [address] [id number] Oct, Neck pain M54.2 ; Metabolic syndrome E88.81 ; Headache R51 and Diarrhea R19.[address] [id number], [place] [id number] Oct, [place] [id number] [place] [address] [id number] Oct, Diarrhea R19.7 ; Dehydration E86.0 and Headache R51 [place] [id number] [place] [address] [id number] Sep, Metabolic syndrome E88.81 ; GERD (gastroesophageal reflux disease ) K21.9 ; Diarrhea R19.7 ; Dehydration E86.0 and Hyperlipemia E78.[address] [id number], [place] [id number] Aug, [address] [place] [address] [id number] Aug, Morbid obesity E66.01 ; Viral syndrome B34.9 ; Hyperlipemia E78.5 ; Chronic pain G89.29 ; Exercise counseling Z71.89 ; Cough R05 ; Depression with anxiety F41.8 ; Dietary counseling Z71.3 ; Fever blister B00.1 and GERD ( gastroesophageal reflux disease) K21.9 [place] [id number] [place] [address] [id number] Aug, Viral syndrome B34.9 ; Cough R05 and Fever blister B00.[address] [id number], [place] [id number] Aug, Morbid obesity E66.01 ; Exercise counseling Z71.89 ; Dietary counseling Z71.3 ; Hyperlipemia E78.5 ; Chronic pain G89.29 ; Depression with anxiety F41.8 and GERD (gastroesophageal reflux disease) K21.9 [place] [id number] [place] [address] [id number] 14 Jun, 2015 Contact dermatitis 692.[address] [place] [address] [id number] 10 Jun, 2015 GERD (gastroesophageal reflux disease) 530.81 and Hyperlipidemia 272.4 [place] [id number] [place] [address] [id number] May, Hyperlipidemia 272.4 and Headache 784.0 [place] [id number] [place] [address] [id number] Mar, [address] [place] [address] [id number] Mar, Asthma 493.[address] [id number] Mar, [place] [id number] [place] [address] [id number] February, Suspicious nevus 238.[address] [id number] February, Depression 311 and Hyperlipidemia 272.4 [place] [id number] [place] [address] [id number] February, [place] [id number] [place] [address] [id number] February, Anxiety state 300.00 ; Screening for lipid disorders V77.91 ; Screening for hypothyroidism V77.0 and Depressive disorder, not elsewhere classified [address] [place] [id number] [place] [address] [id number] Jan, Anxiety state, unspecified 300.00 ; Depression 311 and Headache 784.[address] [place] [address] [id number] Jan, [facility] [address] [place] [id number] [place] [address] 66226 2546 Jan, [facility] [address] [place] [id number] [place] [address] 58680 2541 Jan, [facility] [address] [place] [id number] [place] [address] 54922 2546 Nov, [address] [place] [address] [id number] Nov, [address] [id number] Nov, [facility] [place] [facility] [address] [facility] [id number], [place] [address]- 8436 Nov, [facility] [address] [facility] [id number] [place] [id number] Nov, [facility] [place] [facility] [address] [facility] [id number], [place] [address]- 1393 Nov, [facility] [address] [facility] [id number], [place] [id number] Oct, [facility] [place] [facility] [address] [facility] [id number], [place] [address]- 8502 Oct, [facility] [address] [facility] [id number] [place] [id number] Sep, [facility] [place] [facility] [address]00565100[place], [place] [address]- 4796 Sep, [facility] [address] [facility] [id number], [place] [id number] Jul, [facility] [place] [facility] [address] [facility] [id number], [place] [address]- 2194 Jul, [facility] [address] [facility] [id number], [place] [id number] Jul, [facility] [place] [facility] [address]100[place], [place] [address]- 6566 Jul, [facility] [place] [facility] [address] [facility] [id number], [place] [address]- [address] Jul, [facility] [address] [facility] [id number], [place] [id number] Jul, [facility] [address] [facility] [id number], [place] [id number] Jul, [facility] [place] [facility] [address] [facility] [id number], [place] [address]- 6926 Jul, [facility] [address] [facility] [id number], [place] [id number] Jun, [facility] [place] [facility] [address] [facility] [id number], [place] [address]- 2296 Jun, [facility] [address] [id number] [place] [id number] May, [facility] [place] [facility] [address] [facility] [id number] [place] [address]- 3676 May, [facility] [place] [facility] [address] [facility] [id number], [place] [address]- 3974 Apr, [facility] [address] [id number], [place] [id number] Apr, [facility] [place] [facility] [address] [facility] [id number] [place] [address]- 4902 Apr, [facility] [address] [id number] [place] [id number] Mar, [facility] [place] [facility] [address] [place] [id number], [place] [address]- 2706 Mar, [facility] [address] [id number], [place] [id number] Mar, [facility] [address] [id number], [place] [id number] Mar, [facility] [place] [facility] [address]005[address]100[place], [place] [address]- 3188 Mar, [facility] [place] [facility] [address] [facility] [id number], [place] [address]- 5371 Mar, [facility] [address] [facility] [id number], [place] [id number] February, [facility] [place] [facility] [address] [facility] [id number], [place] [address]- 5505 February, [facility] [address] [facility] [id number], [place] 748172399 February, [facility] [place] [facility] [address] [facility] [id number], [place] [address]- 7877 February, [facility] [address] [facility] [id number] [place] [id number] Jan, [facility] [place] [facility] [address] [facility] [id number], [place] [address]- 4556 Jan, [facility] [address] [facility] [id number] [place] [id number] Dec, [facility] [place] [facility] [address] [facility] [id number], [place] [address] 2546 Dec, [facility] [address] [facility] [id number] [place] [id number] Dec, [facility] [place] [facility] [address] [facility] [id number] [place] [address]- 2546 Dec, [facility] [address] [id number] [place] [id number] Dec, [facility] [address] [facility] [id number] [place] [id number] Dec, [facility] [place] [facility] [address] [facility] [id number] [place] [address]- 2546 Dec, [facility] [place] [facility] [address] [facility] [id number], [place] [address] 2546 Dec, [facility] [address] [facility] [id number] [place] [id number] Nov, [facility] [place] [facility] [address] [facility] [id number][place] [address]- 3306 Nov, [facility] [address] [facility] [id number] [place] [id number] Oct, [facility] [place] [facility] [address] [facility] [id number], [place] [address]- 6340 Oct, [facility] [place] [facility] [address] [facility] [id number], [place] [address]- 2546 Sep, [facility] [place] [facility] [address] [facility] [id number] [place] [address]- 0506 Sep, [facility] [address] [facility] [id number] [place] [id number] Sep, [facility] [place] [facility] [address] [facility] [id number], [place] [address]- 8486 Sep, [facility] [address] [facility] [id number], [place] [id number] Aug, [facility] [address] [facility] [id number], [place] [address]- 7476 Aug, [facility] [place] [facility] [address] [facility] [id number] [place] [address]- 6162 Jul, [facility] [place] [facility] [address] [facility] [id number] [place] [address]- 7609 Jul, [facility] [place] [facility] [address] [id number] [place] [address]- 4990 Jul, [facility] [place] [address] [facility] [id number], [place] [id number] Jul, [facility] [place] [facility] [address] [facility] [id number], [place] [address]- 4170 Jul, [facility] [place] [facility] [address], [place] [address]- 3263 Jul, [facility] [address] [facility] [id number], [place] [address]- 3275 Jul, [facility] [place] [address] [facility] [id number], [place] [id number] Jul, [facility] [address] [facility] [id number], [place] [address]- 7476 Jul, [facility] [place] 120 [facility] [id number], [place] [id number] Jun, [facility] [place] 120 [facility] [id number], [place] 645603580 May, [facility] [place] [facility] [address] [facility] [id number] [place] [address]- 1487 May, [facility] [place] [facility] [address] [facility] [id number], [place] [address]- 5515 May, [facility] [place] [facility] [address] [facility] [id number], [place] [address]- 5485 May, [facility] [place] [facility] [address] [facility] [id number], [place] [address]- 2546 May, [facility] [address] [id number] [place] [id number] May, [facility] [place] [address] [id number] [place] [id number] May, [facility] [place] [address] [id number] [place] [id number] Apr, [facility] [address] [facility] [id number] [place] [address] Mar, [facility] [place] [address] [id number] [place] [id number] Mar, [facility] [place] [address] [id number] [place] [id number] February, [facility] [address] [facility] [id number] [place] [address] February, [facility] [address] [id number] [place] [id number] February, [facility] [place] [address] [id number] [place] [id number] Jan, [facility] [place] [address] [id number] [place] [id number] Jan, [facility] [place] [address] [id number] [place] [id number] Dec, [facility] [place] [address] [id number] [place] [id number] Dec, [facility] [address] [facility] [id number], [place] [address] Nov, [facility] [address] [facility] [id number], [place] [address] Nov, [facility] [place] [address] [id number] [place] [id number] Oct, [facility] [place] [address] [id number] [place] [id number] Oct, [facility] [place] [address] [id number] [place] [id number] Sep, [facility] [place] [facility] [address] [facility] [id number], [place] [address] Sep, [facility] [place] [address] [id number] [place] [id number] Aug, [facility] [place] [facility] [address] [facility] [id number] [place] [address] Aug, [facility] [place] [facility] [address] [facility] [id number], [place] [address] May, [facility] [place] [address] [id number] [place] [id number] May, [facility] [place] [address] [id number] [place] [id number] May, [facility] [place] [facility] [address] [facility] [id number] [place] [address] Apr, [facility] [place] [address] [id number] [place] [id number] Apr, [facility] [place] [address] [id number] [place] [id number] Apr, [facility] [place] [address] [id number] [place] [id number] Apr, [facility] [place] [address] [id number] [place] [id number] Mar, [facility] [place] [address] [id number] [id number] Mar, [facility] [place] [facility] [address] [facility] [id number], [place] [address] Mar, [facility] [place] [facility] [address] [facility] [id number], [place] [address] February, [facility] [place] [address] [id number] [place] [id number] February, [facility] [place] [address] [id number] [place] [id number] February, [facility] [place] [address] [id number] [place] [id number] Dec, [facility] [place] [address] [id number] [place] [id number] Dec, [facility] [place] [address] [id number] [place] [id number] Dec, [facility] [place] [address] [id number] [place] [id number] Dec, [facility] [place] [address] [id number] [place] [id number] Dec, [facility] [place] [address] [id number] [place] [id number] Dec, [facility] [place] [address] [id number] [place] [id number] Dec, [facility] [place] [address] [id number] [place] [id number] Nov, [facility] [address] [facility] [id number] [address] Nov, [facility] [place] [address] [id number] [place] [id number] Nov, [facility] [place] [address] [id number] [place] [id number] Oct, [facility] [id number], [place] [address] Oct, [facility] [place] [address] [id number] [place] [id number] Oct, [facility] [id number], [place] [address] Oct, [facility] [address] [facility] [id number], [place] [address] Sep, [facility] [address] [facility] [id number], [place] [address] Sep, [facility] [address] [facility] [id number], [place] [address] Sep, [facility] [address] [id number], [place] [address] Aug, [facility] [address] [id number], [place] [address] Jul, [facility] [address] [facility] [id number], [place] [address] Jul, [facility] [address] [facility] [id number], [place] [address] February, [facility] [address] [facility] [id number], [place] [address] Jan, IMMUNIZATIONS Vaccine Route Administration Date Status TORADOL (IM) 30 MG/ML (UP TO 15 MG) IM Intramuscular April 15, 2018 Administered PHENERGAN (IM) 25 MG (25 MG/ML) IM Intramuscular April 15, 2018 Administered SOCIAL HISTORY Never Assessed REASON FOR VISIT Increased urgency, hesitancy on occasion. Had surgical repair on prolapsed vaginal wall 2004, can feel "lump" when in sitting position--KAIDEN Johnson, Headache x 2 days PLAN OF CARE Activity Details Follow Up prn Reason: VITAL SIGNS Height 68 in 2018-04-15 Weight 344.0 lbs 2018-04-15 Temperature 97.8 degrees Fahrenheit 2018-04-15 Heart Rate 96 bpm 2018-04-15 Respiratory Rate 20 2018-04-15 BMI 52.30 kg/m2 2018-04-15 Blood pressure systolic 120 mmHg 2018-04-15 Blood pressure diastolic 70 mmHg 2018-04-15 MEDICATIONS Medication Instructions Dosage Frequency Start Date End Date Duration Status Cyclobenzaprine HCl 10MG TAKE ONE-HALF TABLET BY MOUTH TWICE DAILY Active Levaquin 500 mg Orally Once a day 1 tablet 24h Mar, Mar, Active MetFORMIN HCl ER 500 mg Orally Once a day at night 1 tablet with evening meal Sep, 0 days Active Diflucan 150 MG Orally Once a day repeat in 1 wk 1 tablet Mar, Mar, 1 dose Active Tramadol HCl 50 mg Orally 2 times a day, PRN, Must last 28 days. 1 tablet as needed Active Amoxicillin 500 mg Orally every 12 hrs 2 tablet 12h Mar, Apr, 07 days Active Cymbalta 60 mg Orally Twice a day 1 capsule 12h Sep, Active Trazodone HCl 50 mg Orally Once a day .5-1 tablet at bedtime as needed 24h Active Venlafaxine HCl 100 mg Orally twice a day 1 tablet with food 12h 0 Active Omeprazole 40 mg Orally TID PRN 1 capsule Active Phentermine HCl 37.5 MG Orally Once a day 1 capsule 24h 14 Dec, 2017 Not-Taking Hydrocodone-Acetaminophen 7.5-325 MG Orally 2 times a day 1-2 tablet as needed for extreme pain 12h 15 Feb, 2018 Active Ibuprofen 800 MG Orally Three times a day 1 tablet with food or milk as needed 8h 30 days Active RESULTS Name Result Date Reference Range UA LONG DIP (IN HOUSE) 2018-04-15 Lot # [id number] Exp date 09/19/18 Clarity clear Color yellow Odor no GLU neg TREMAYNE neg KET neg SG 1.020 BLO neg pH 5.5 Protein neg URO 0.2 NIT neg NEGRA 1+ Lot # Exp date PROCEDURES Procedure Date Ordered Result Body Site PHENERGAN (IM) 25 MG (25 MG/ML) April 15, 2018 TORADOL (IM) 30 MG/ML (UP TO 15 MG) April 15, 2018 THER/PROPH/DIAG INJ, SC/IM April 15, 2018 URINALYSIS, AUTO, W/O SCOPE April 15, 2018 INSTRUCTIONS MEDICATIONS ADMINISTERED No Known Medications [...] 11/2016 Hospitalization History [facility] for headache 05/28/17
--- OUTSIDE RECORDS SUMMARY | 2018-07-24 06:00 | XMS REPORT ---
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 Active 86693247 Problem Intractable migraine with aura without status migrainosus G43.119 Active 763276890 Problem Radiculopathy of lumbar region M54.16 Active 838596126 Problem History of partial hysterectomy Z90.711 Active 674922236 Problem Depression with anxiety F41.8 Active 908303393 Problem Carpal tunnel syndrome of right wrist G56.01 Active 90495851 Problem Hyperlipemia E78.5 Active 45106386 Problem Morbid obesity E66.01 Active 829116560 Problem Neuropathic arthropathy M14.60 Active 62494922 Problem Controlled type 2 diabetes mellitus without complication, without long -term current use of insulin E11.9 Active 366994114 Problem BMI 50.0-59.9, adult Z68.43 Active 540327953 Problem Acne rosacea L71.9 Active 064786998 Problem Metabolic syndrome E88.81 Active 102700640 Problem Headache R51 Active 24515302 Problem Chronic pain G89.29 Active 47799377 Problem GERD (gastroesophageal reflux disease) K21.9 Active 204307618 Problem Myalgia M79.1 Active 37980042 Problem Lumbago with sciatica, left side M54.42 Active 678253426 Problem Neck pain M54.2 Active 34327525 Problem Plantar fasciitis M72.2 Active 415842251 Problem Anxiety associated with depression F41.8 Active 368330430 Problem Spinal stenosis of lumbar region M48.06 Active 21256932 ALLERGIES Substance Reaction Event Type Date Status Gabapentin headache Drug Allergy Apr, Active ENCOUNTERS Encounter Location Date Diagnosis [facility] [id number] [id number] May, Dysuria R30.0 [place] [id number] [place] [address] [id number] Apr, [facility] [id number] [place] [address] [id number] Apr, [facility] [id number] [place] [address] [id number] Apr, Radiculopathy of lumbar region M54.16 and Morbid obesity E66.01 [place] [id number] [place] [address] [id number] Apr, Well woman exam with routine gynecological exam Z01.419 ; Screening breast examination Z12.31 ; High risk heterosexual behavior Z72.51 ; BMI 50.0- 59.9, adult Z68.43 ; Pain emptying bladder R30.9 ; Pelvic pain R10.2 and History of partial hysterectomy Z90.711 [place] [id number] [place] [address] [id number] Mar, BMI 50.0-59.9, adult Z68.43 ; Acute cystitis without hematuria N30.00 and Intractable migraine with aura without status migrainosus G43.119 [place] [id number] [place] [address] [id number] Mar, Neuropathic arthropathy M14.60 ; GERD (gastroesophageal reflux disease) K21.9 and Controlled type 2 diabetes mellitus without complication, without long -term current use of insulin E11.9 [place] [id number], [place] [id number] February, Neuropathic arthropathy M14.60 [address] [place] [address] [id number] February, Neuropathic arthropathy M14.60 ; Spinal stenosis of lumbar region M48.06 and BMI 50.0-59.9, adult Z68.43 [facility] [id number] [place] [address] [id number] February, BMI 50.0-59.9, adult Z68.43 [place] [address] [id number] [address] February, Radiculopathy of lumbar region M54.16 [facility] [id number], [place] [id number] February, Radiculopathy of lumbar region M54.16 and Infective urethritis N34.2 [facility] [address]00565100[place], [place] [id number] Jan, Neuropathic arthropathy M14.60 [facility] [place] [id number] [place] [address] [id number] Jan, BMI 50.0-59.9, adult Z68.43 ; Controlled type 2 diabetes mellitus without complication, without long-term current use of insulin E11.9 and Neuropathic arthropathy M14.60 [address] [place] [address] [id number] Dec, Carpal tunnel syndrome of right wrist G56.01 and 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 [facility] [id number], [place] [id number] Dec, BMI 50.0-59.9, adult Z68.43 ; Acne rosacea L71.9 ; Neuropathic arthropathy M14.60 and GERD (gastroesophageal reflux disease) K21.9 [facility] [address]00565100[place], [place] [id number] Nov, [address] [place] [address] [id number] Nov, Infective urethritis N34.2 [facility] [address]00565100[place], [place] [id number] Nov, Skin tag L91.8 and BMI 50.0-59.9, adult Z68.43 [facility] [address]00565100[place] [address] Oct, Neuropathic arthropathy M14.60 [facility] [address] [place] [id number][place] [id number] Oct, 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 [id number], [place] [id number] Sep, Radiculopathy of lumbar region M54.16 and Neuropathic arthropathy M14.60 [address]00565100[place], [place] [id number] Sep, Controlled type 2 diabetes mellitus without complication, without long- term current use of insulin E11.9 [address] [place] [address] [id number] Sep, Controlled type 2 diabetes mellitus without complication, without long- term current use of insulin E11.9 [address] [place] [address] [id number] Sep, [address] [place] [address] [id number] Sep, 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 ; Neuropathic arthropathy M14.60 and BMI 50.0-59.9, adult Z68.43 [address] [place] [address] [id number] Sep, Controlled type 2 diabetes mellitus without complication, without long- term current use of insulin E11.9 ; Dysuria R30.0 ; 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 and Morbid obesity E66.[address] [id number] [id number] Aug, [address] [id number], [place] [id number] Jul, Morbid obesity E66.01 [facility] [address] [facility] [id number] [place] [address] Jul, Morbid obesity E66.[address] [id number], [place] [id number] Jul, Morbid obesity E66.01 ; Encounter for immunization Z23 ; Insect bite ( nonvenomous), left ankle, initial encounter S90.562A ; Bitten or stung by nonvenomous insect and other nonvenomous arthropods, initial encounter W57.XXXA and Acute cystitis without hematuria N30.00 [place] [id number] [place] [address] [id number] Jun, GERD (gastroesophageal reflux disease) K21.9 [facility] [address] [place] [address] [id number] Jun, [place] [id number] [place] [address] [id number] Jun, Morbid obesity E66.01 [facility] [address] [place] [id number] [place] [address] [id number] May, [place] [id number] [place] [address] [id number] May, [place] [id number] [place] [address] [id number] May, Intractable migraine with aura without status migrainosus G43.119 and Vertigo R42 [facility] [address] [place] [id number] [place] [address] 58[address]- 9316 Apr, [place] [id number] [place] [address] [id number] Apr, Radiculopathy of lumbar region M54.16 ; 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 ; Morbid obesity E66.01 ; Depression with anxiety F41.8 ; Metabolic syndrome E88.81 and GERD ( gastroesophageal reflux disease) K21.9 [address]00565100[place] [id number] February, [address] [place] [address] [id number] February, Spinal stenosis of lumbar region M48.06 and Anxiety associated with depression F41.8 [place] [id number] [place] [address] [id number] February, Anxiety associated with depression F41.8 [address]00565100[place] [id number] February, Low back pain M54.5 [place] [id number] [address] February, Low back pain M54.5 and Myalgia M79.1 [address] [place] [address] [id number] Jan, [place] [id number] [place] [address] [id number] Jan, Anxiety associated with depression F41.8 [facility] [address] [place] [id number] [place] [address] [id number]- 2458 Jan, [address] [id number][place] [id number] Jan, Metabolic syndrome E88.81 [address] [place] [address] [id number] Jan, Lumbago with sciatica, left side M54.42 and Plantar fasciitis M72.2 [place] [address] [place] [id number] [place] [address] 18971- 1802 Dec, [address] [place] [address] [id number] Dec, Myalgia M79.1 and Anxiety associated with depression F41.8 [address] [place] [address] [id number] Nov, Myalgia M79.[address] [id number], [place] [id number] Aug, [facility] [id number] [place] [address] [id number] Aug, Upper respiratory tract infection, unspecified type J06.9 ; Encounter for immunization Z23 and Tinea pedis of left foot B35.3 [facility] [address] [place] [id number] [place] [address] 29084- 6681 Aug, [facility] [address] [place] [id number] [place] [address] 51306- 8686 Jul, Dental examination Z01.20 [facility] [address] [id number], [place] [id number] Apr, Anxiety associated with depression F41.8 [facility] [address] [id number][place] [id number] Apr, Depression with anxiety F41.8 ; Morbid obesity E66.01 ; GERD ( gastroesophageal reflux disease) K21.9 ; Metabolic syndrome E88.81 and Headache R51 [facility] [address] [place] [id number], [place] [id number] Apr, [address] [id number], [place] [id number] Apr, Carpal tunnel syndrome of left wrist G56.02 and Muscle spasm M62.838 [facility] [address]00565100[place] [address]- 6743 Mar, Carpal tunnel syndrome of left wrist G56.02 [facility] [address] [id number], [place] [id number] Mar, Left elbow pain M25.522 [facility] [address] [place] [address] 07461- 2898 February, Dental examination Z01.20 [facility] [address] [id number], [place] [id number] February, Acute pain of left shoulder M25.512 ; Left elbow pain M25.522 ; Renal insufficiency N28.9 and Metabolic syndrome E88.81 [place] [id number] [id number] February, [facility] [address] [place] [address] [id number], [place] [id number] February, Neck pain M54.2 ; Metabolic syndrome E88.81 ; Morbid obesity E66.01 ; Bilateral headaches R51 and Dizziness R42 [facility] [address] [id number], [place] [id number] Oct, Dizziness R42 and History of panic attacks Z86.59 [facility] [address] [id number] [place] [address] [id number] Oct, Neck pain M54.2 ; Metabolic syndrome E88.81 ; Headache R51 and Diarrhea R19.[address] [id number], [place] [id number] Oct, [place] [id number] [place] [address] [id number] Oct, Diarrhea R19.7 ; Dehydration E86.0 and Headache R51 [place] [id number] [place] [address] [id number] Sep, Metabolic syndrome E88.81 ; GERD (gastroesophageal reflux disease ) K21.9 ; Diarrhea R19.7 ; Dehydration E86.0 and Hyperlipemia E78.[address] [id number], [place] [id number] Aug, [address] [place] [address] [id number] Aug, Morbid obesity E66.01 ; Viral syndrome B34.9 ; Hyperlipemia E78.5 ; Chronic pain G89.29 ; Exercise counseling Z71.89 ; Cough R05 ; Depression with anxiety F41.8 ; Dietary counseling Z71.3 ; Fever blister B00.1 and GERD ( gastroesophageal reflux disease) K21.9 [place] [id number] [place] [address] [id number] Aug, Viral syndrome B34.9 ; Cough R05 and Fever blister B00.[address] [id number], [place] [id number] Aug, Morbid obesity E66.01 ; Exercise counseling Z71.89 ; Dietary counseling Z71.3 ; Hyperlipemia E78.5 ; Chronic pain G89.29 ; Depression with anxiety F41.8 and GERD (gastroesophageal reflux disease) K21.9 [place] [id number] [place] [address] [id number] 14 Jun, 2015 Contact dermatitis 692.9 [address] [place] [address] [id number] 10 Jun, 2015 GERD (gastroesophageal reflux disease) 530.81 and Hyperlipidemia 272.4 [place] [id number] [place] [address] [id number] May, Hyperlipidemia 272.4 and Headache 784.0 [place] [id number] [place] [address] [id number] Mar, [address] [place] [address] [id number] Mar, Asthma 493.[address] [id number] Mar, [place] [id number] [place] [address] [id number] February, Suspicious nevus 238.[address] [id number] February, Depression 311 and Hyperlipidemia 272.4 [place] [id number] [place] [address] [id number] February, [place] [id number] [place] [address] [id number] February, Anxiety state 300.00 ; Screening for lipid disorders V77.91 ; Screening for hypothyroidism V77.0 and Depressive disorder, not elsewhere classified [address] [place] [id number] [place] [address] [id number] Jan, Anxiety state, unspecified 300.00 ; Depression 311 and Headache 784.0 [address] [place] [address] [id number] Jan, [facility] [address] [place] [id number] [place] [address] 42111 2546 Jan, [facility] [address] [place] [id number] [place] [address] 08786 2544 Jan, [facility] [address] [place] [id number] [place] [address] 16306 2546 Nov, [address] [place] [address] [id number] Nov, [address] [id number] Nov, [facility] [place] [facility] [address] [facility] [id number] [address]- 7734 Nov, [facility] [address] [facility] [id number] [place] [id number] Nov, [facility] [place] [address] [facility] [id number] [address]- 5278 Nov, [facility] [address] [facility] [id number], [place] [id number] Oct, [facility] [place] [address] [facility] [id number] [address]- 2679 Oct, [facility] [address] [facility] [id number] [place] [id number] Sep, [facility] [place] [facility] [address]00565100[place] [address]- 2472 Sep, [facility] [address] [facility] [id number], [place] [id number] Jul, [facility] [address] [facility] [id number] [address]- 4082 Jul, [facility] [address] [facility] [id number], [place] [id number] Jul, [facility] [place] [facility] [address]00565100[place] [address]- 0986 Jul, [facility] [place] [facility] [address] [facility] [id number] [place] [address]- 9466 Jul, [facility] [address] [facility] [id number], [place] [id number] Jul, [facility] [address] [facility] [id number], [place] [id number] Jul, [facility] [place] [address] [facility] [id number] [address]- 3746 Jul, [facility] [address] [facility] [id number], [place] [id number] Jun, [facility] [place] [facility] [address] [facility] [id number] [address]- 9016 Jun, [facility] [address] [id number] [place] [id number] May, [facility] [place] [facility] [address] [facility] [id number] [place] [address]- 8386 May, [facility] [place] [facility] [address] [facility] [id number] [address]- 2066 Apr, [facility] [address] [id number], [place] [id number] Apr, [facility] [place] [facility] [address] [facility] [id number] [place] [address]- 7212 Apr, [facility] [address] [id number] [place] [id number] Mar, [facility] [place] [facility] [address] [place] [id number] [address]- 8668 Mar, [facility] [address] [id number], [place] [id number] Mar, [facility] [address] [id number], [place] [id number] Mar, [facility] [place] [facility] [address]00565100[place] [address]- 4554 Mar, [facility] [place] [facility] [address] [facility] [id number] [place] [address]- 6028 Mar, [facility] [address] [facility] [id number], [place] [id number] February, [facility] [place] [facility] [address] [facility] [id number] [address]- 9718 February, [facility] [address] [facility] [id number], [place] [id number] February, [facility] [place] [facility] [address] [facility] [id number] [address]- 6769 February, [facility] [address] [facility] [id number] [place] [id number] Jan, [facility] [place] [facility] [address] [facility] [id number] [place] [address]- 0086 Jan, [facility] [address] [facility] [id number] [place] [id number] Dec, [facility] [place] [facility] [address] [facility] [id number] [address] 2546 Dec, [facility] [address] [facility] [id number] [place] 517934179 Dec, [facility] [place] [facility] [address] [facility] [id number] [place] [address]- 2546 Dec, [facility] [address] [id number] [place] [id number] Dec, [facility] [address] [facility] [id number] [place] [id number] Dec, [facility] [place] [facility] [address] [facility] [id number] [place] [address]- 2546 Dec, [facility] [place] [facility] [address] [facility] [id number] [address] 2546 Dec, [facility] [address] [facility] [id number] [place] [id number] Nov, [facility] [place] [facility] [address] [facility] [id number] [address]- 8486 Nov, [facility] [address] [facility] [id number] [place] [id number] Oct, [facility] [place] [facility] [address] [facility] [id number] [address]- 6548 Oct, [facility] [place] [facility] [address] [facility] [id number] [address]- 2546 Sep, [facility] [place] [facility] [address] [facility] [id number] [place] [address]- 8826 Sep, [facility] [address] [facility] [id number] [place] [id number] Sep, [facility] [place] [facility] [address] [facility] [id number] [place] [address]- 3636 Sep, [facility] [address] [facility] [id number], [place] [id number] Aug, [facility] [address] [facility] [id number] [address]- 0019 Aug, [facility] [place] [facility] [address] [facility] [id number] [place] [address]- 9494 Jul, [facility] [place] [facility] [address] [facility] [id number] [place] [address]- 5095 Jul, [facility] [place] [facility] [address] [id number] [place] [address]- 6845 Jul, [facility] [address] [facility] [id number], [place] [id number] Jul, [facility] [place] [facility] [address] [facility] [id number] [address]- 0989 Jul, [facility] [place] [facility] [address]00565100[place] [address]- 5862 Jul, [facility] [address] [facility] [id number] [address]- 9606 Jul, [facility] [address] [facility] [id number], [place] 956697474 Jul, [facility] [address] [facility] [id number] [address]- 0156 Jul, [facility] 120 [facility] [id number], [place] [id number] Jun, [facility] 120 [facility] [id number], [place] [id number] May, [facility] [place] [facility] [address] [facility] [id number] [place] [address]- 5389 May, [facility] [place] [facility] [address] [facility] [id number] [address]- 9817 May, [facility] [place] [facility] [address] [facility] [id number] [place] [address] May, [facility] [place] [facility] [address] [facility] [id number] [place] [address] May, [facility] [address] [id number] [place] [id number] May, [facility] [address] [id number] [place] [id number] May, [facility] [address] [id number] [place] [id number] Apr, [facility] [address] [facility] [id number] [place] [address] Mar, [facility] [address] [id number] [place] [id number] Mar, [facility] [address] [id number] [place] [id number] February, [facility] [address] [facility] [id number] [place] [address] February, [facility] [address] [id number] [place] [id number] February, [facility] [address] [id number] [place] [id number] Jan, [facility] [address] [id number] [place] [id number] Jan, [facility] [address] [id number] [place] [id number] Dec, [facility] [address] [id number] [place] [id number] Dec, [facility] [address] [facility] [id number] [address] Nov, [facility] [address] [facility] [id number] [place] [address] Nov, [facility] [address] [id number] [place] [id number] Oct, [facility] [address] [id number] [place] [id number] Oct, [facility] [address] [id number] [place] [id number] Sep, [facility] [place] [facility] [address] [facility] [id number] [place] [address] Sep, [facility] [address] [id number] [place] [id number] Aug, [facility] [place] [facility] [address] [facility] [id number] [place] [address] Aug, [facility] [place] [facility] [address] [facility] [id number] [address] May, [facility] [address] [id number] [place] [id number] May, [facility] [address] [id number] [place] [id number] May, [facility] [place] [facility] [address] [facility] [id number] [place] [address] Apr, [facility] [place] [address] [id number] [place] [id number] Apr, [facility] [place] [address] [id number] [place] [id number] Apr, [facility] [place] [address] [id number] [place] [id number] Apr, [facility] [place] [address] [id number] [place] [id number] Mar, [facility] [place] [address] [id number] [id number] Mar, [facility] [place] [facility] [address] [facility] [id number] [address] Mar, [facility] [place] [facility] [address] [facility] [id number] [place] [address] February, [facility] [place] [address] [id number] [place] [id number] February, [facility] [place] [address] [id number] [place] [id number] February, [facility] [place] [address] [id number] [place] [id number] Dec, [facility] [place] [address] [id number] [place] [id number] Dec, [facility] [place] [address] [id number] [place] [id number] Dec, [facility] [place] [address] [id number] [place] [id number] Dec, [facility] [place] [address] [id number] [place] [id number] Dec, [facility] [place] [address] [id number] [place] [id number] Dec, [facility] [place] [address] [id number] [place] [id number] Dec, [facility] [place] [address] [id number] [place] [id number] Nov, [facility] [place] [facility] [address] [facility] [id number] [place] [address] Nov, [facility] [place] [address] [id number] [place] [id number] Nov, [facility] [place] [address] [id number] [place] [id number] Oct, [facility] [place] [facility] [id number] [address] Oct, [facility] [place] [address] [id number] [place] [id number] Oct, [facility] [place] [facility] [id number] [address] Oct, [facility] [place] [facility] [address] [facility] [id number] [place] [address] Sep, [facility] [place] [facility] [address] [facility] [id number] [place] [address] Sep, [facility] [place] [facility] [address] [facility] [id number] [place] [address] Sep, [facility] [place] [facility] [address] [id number] [address] Aug, [facility] [place] [facility] [address] [id number] [address] Jul, [facility] [address] [facility] [id number] [place] [address] Jul, [facility] [address] [facility] [id number] [place] [address] February, [facility] [address] [facility] [id number] [place] [address] Jan, IMMUNIZATIONS No Known Immunizations SOCIAL HISTORY Never Assessed REASON FOR VISIT PT states back pain has increased, tramadol not improving it. Has been shooting pain down both legs Alvina CHARLES PLAN OF CARE Activity Details Follow Up prn Reason: VITAL SIGNS Height 68 in 2018-04-28 Weight 354 lbs 2018-04-28 Temperature 97.6 degrees Fahrenheit 2018-04-28 Heart Rate 90 bpm 2018-04-28 Respiratory Rate 20 2018-04-28 BMI 53.82 kg/m2 2018-04-28 Blood pressure systolic 128 mmHg 2018-04-28 Blood pressure diastolic 70 mmHg 2018-04-28 MEDICATIONS Medication Instructions Dosage Frequency Start Date End Date Duration Status Ibuprofen 800 MG Orally Three times a day 1 tablet with food or milk as needed 8h 30 days Active Tramadol HCl 50 mg Orally 2 times a day, PRN, Must last 28 days. 1 tablet as needed Active Omeprazole 40 mg Orally TID PRN 1 capsule Active Venlafaxine HCl 100 mg Orally twice a day 1 tablet with food 12h 0 Active MetFORMIN HCl ER 500 mg Orally Once a day at night 1 tablet with evening meal Sep, 0 days Active Trazodone HCl 50 mg Orally Once a day .5-1 tablet at bedtime as needed 24h Active Cymbalta 60 mg Orally Twice a day 1 capsule 12h 26 Sep, 2017 Active Cyclobenzaprine HCl 10MG TAKE ONE-HALF TABLET BY MOUTH TWICE DAILY Active Phentermine HCl 37.5 MG Orally Once a day 1 capsule 24h 14 Dec, 2017 Active RESULTS No Results PROCEDURES No Known procedures INSTRUCTIONS MEDICATIONS ADMINISTERED No Known Medications MEDICAL (GENERAL) HISTORY Type Description Date Medical History Obesity Medical History depression Medical History insomnia Medical History Neck pain- xray 01/2016- showed mod/severe degenerative changes Medical History diabetes type II Medical History Headaches Medical History Binge eating Medical History Left Carpal tunnel syndrome 2015 Surgical History hysterectomy 1996 Surgical History cholecystectomy 1995 Surgical History back surgery 1998 Surgical History tonsillectomy 1978 Surgical History Dilation and curettage 1995 Surgical History Bi-cone surgery on

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
--- OUTSIDE RECORDS SUMMARY | 2018-07-24 06:04 | XMS REPORT ---
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 Active 52245888 Problem Intractable migraine with aura without status migrainosus G43.119 Active 982188962 Problem Radiculopathy of lumbar region M54.16 Active 709154560 Problem History of partial hysterectomy Z90.711 Active 855178853 Problem Depression with anxiety F41.8 Active 268363516 Problem Carpal tunnel syndrome of right wrist G56.01 Active 54517273 Problem Hyperlipemia E78.5 Active 99734962 Problem Morbid obesity E66.01 Active 764365113 Problem Neuropathic arthropathy M14.60 Active 69206642 Problem Controlled type 2 diabetes mellitus without complication, without long -term current use of insulin E11.9 Active 378439941 Problem BMI 50.0-59.9, adult Z68.43 Active 556922050 Problem Acne rosacea L71.9 Active 585696724 Problem Metabolic syndrome E88.81 Active 235664155 Problem Headache R51 Active 77365184 Problem Chronic pain G89.29 Active 23967143 Problem GERD (gastroesophageal reflux disease) K21.9 Active 222447254 Problem Myalgia M79.1 Active 04782489 Problem Lumbago with sciatica, left side M54.42 Active 533664976 Problem Neck pain M54.2 Active 65732446 Problem Plantar fasciitis M72.2 Active 025318454 Problem Anxiety associated with depression F41.8 Active 673569846 Problem Spinal stenosis of lumbar region M48.06 Active 26615473 ALLERGIES Substance Reaction Event Type Date Status Gabapentin headache Drug Allergy February, Active ENCOUNTERS Encounter Location Date Diagnosis [facility] [id number] [place] [address] [id number] Apr, [facility] [id number] [place] [address] [id number] Apr, [facility] [address] [id number] [place] [address] [phone] Apr, Radiculopathy of lumbar region M54.16 and Morbid obesity E66.01 [place] [id number] [place] [address] [phone] Apr, Well woman exam with routine gynecological exam Z01.419 ; Screening breast examination Z12.31 ; High risk heterosexual behavior Z72.51 ; BMI 50.0- 59.9, adult Z68.43 ; Pain emptying bladder R30.9 ; Pelvic pain R10.2 and History of partial hysterectomy Z90.711 [facility] [id number] [place] [address] [id number] Mar, BMI 50.0-59.9, adult Z68.43 ; Acute cystitis without hematuria N30.00 and Intractable migraine with aura without status migrainosus G43.119 [facility] [id number] [place] [address] [id number] 12 Mar, 2018 Neuropathic arthropathy M14.60 ; GERD (gastroesophageal reflux disease) K21.9 and Controlled type 2 diabetes mellitus without complication, without long -term current use of insulin E11.9 [facility] [id number] [place] [address] [id number] February, Neuropathic arthropathy M14.60 [facility] [id number] [place] [address] [id number] February, Neuropathic arthropathy M14.60 ; Spinal stenosis of lumbar region M48.06 and BMI 50.0-59.9, adult Z68.43 [facility] [id number] [place] [address] [id number] February, BMI 50.0-59.9, adult Z68.43 [facility] [id number] [place] [address] [id number] February, Radiculopathy of lumbar region M54.16 [facility] [id number] [id number] February, Radiculopathy of lumbar region M54.16 and Infective urethritis N34.2 [facility] [id number] [place] [address] [id number] Jan, Neuropathic arthropathy M14.60 [facility] [id number] [place] [address] [id number] Jan, BMI 50.0-59.9, adult Z68.43 ; Controlled type 2 diabetes mellitus without complication, without long-term current use of insulin E11.9 and Neuropathic arthropathy M14.60 [facility] [address] [place] [address] [id number] Dec, Carpal tunnel syndrome of right wrist G56.01 and 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 [place] [address] [id number] Dec, BMI 50.0-59.9, adult Z68.43 ; Acne rosacea L71.9 ; Neuropathic arthropathy M14.60 and GERD (gastroesophageal reflux disease) K21.9 [facility] [address] [place] [address] [id number] Nov, [facility] [place] [id number] [place] [address] [id number] Nov, Infective urethritis N34.2 [address]00565[address] [id number] Nov, Skin tag L91.8 and BMI 50.0-59.9, adult Z68.43 [facility] [address] [id number] [address] Oct, Neuropathic arthropathy M14.60 [facility] [address]00565100[place] [id number] Oct, 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 [address] [place] [address] [id number] Sep, Radiculopathy of lumbar region M54.16 and Neuropathic arthropathy M14.[address] [id number], [place] [phone] Sep, Controlled type 2 diabetes mellitus without complication, without long- term current use of insulin E11.9 [place] [id number] [phone] Sep, Controlled type 2 diabetes mellitus without complication, without long- term current use of insulin E11.9 [address]00565100[place] [id number] Sep, [place] [id number] [phone] Sep, 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 ; Neuropathic arthropathy M14.60 and BMI 50.0-59.9, adult Z68.43 [address] [place] [address] [id number] Sep, Controlled type 2 diabetes mellitus without complication, without long- term current use of insulin E11.9 ; Dysuria R30.0 ; 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 and Morbid obesity E66.[address] [id number][place] [id number] Aug, [address] [id number], [place] [id number] Jul, Morbid obesity E66.01 [facility] [address] [facility] [id number] [address] Jul, Morbid obesity E66.[address] [id number], [place] [id number] Jul, Morbid obesity E66.01 ; Encounter for immunization Z23 ; Insect bite ( nonvenomous), left ankle, initial encounter S90.562A ; Bitten or stung by nonvenomous insect and other nonvenomous arthropods, initial encounter W57.XXXA and Acute cystitis without hematuria N30.00 [place] [id number] [id number] Jun, GERD (gastroesophageal reflux disease) K21.9 [facility] [id number] [place] [address] [id number] Jun, [facility] [id number] [place] [address] [id number] Jun, Morbid obesity E66.01 [facility] [id number] [place] [address] [id number] May, [facility] [id number] [place] [address] [id number] May, [facility] [id number] [place] [address] [id number] May, Intractable migraine with aura without status migrainosus G43.119 and Vertigo R42 [facility] [address] [id number] [address] Apr, [facility] [id number] [place] [address] [id number] Apr, Radiculopathy of lumbar region M54.16 ; 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 ; Morbid obesity E66.01 ; Depression with anxiety F41.8 ; Metabolic syndrome E88.81 and GERD ( gastroesophageal reflux disease) K21.9 [facility] [id number] [place] [address] [id number] February, [place] [id number] [place] [address] [id number] February, Spinal stenosis of lumbar region M48.06 and Anxiety associated with depression F41.8 [facility] [id number] [place] [address] [id number] February, Anxiety associated with depression F41.8 [place] [id number], [place] [id number] February, Low back pain M54.5 [facility] [address]00565100[place] [id number] February, Low back pain M54.5 and Myalgia M79.1 [facility] [address] [id number], [place] [id number] Jan, [facility] [id number] [place] [address] [id number] Jan, Anxiety associated with depression F41.8 [facility] [address]005[address]100[place] [address] Jan, [facility] [address] [facility] [address] [id number], [place] [id number] Jan, Metabolic syndrome E88.81 [facility] [id number] [place] [address] [id number] Jan, Lumbago with sciatica, left side M54.42 and Plantar fasciitis M72.2 [facility] [address]00565100[place] [address] Dec, [facility] [id number], [place] [id number] Dec, Myalgia M79.1 and Anxiety associated with depression F41.8 [facility] [id number], [place] [id number] Nov, Myalgia M79.1 [facility] [address] [place] [address] [id number], [place] [phone] Aug, [facility] [address] [place] [address] AV [id number], [place] [id number] Aug, Upper respiratory tract infection, unspecified type J06.9 ; Encounter for immunization Z23 and Tinea pedis of left foot B35.3 [facility] [address]00565100[place] [address]- [address] Aug, [facility] [id number] [place] [address] 2600 Jul, Dental examination Z01.20 [facility] [address] [facility] [address] [id number], [place] [id number] Apr, Anxiety associated with depression F41.8 [facility] [address] [id number], [place] [id number] Apr, Depression with anxiety F41.8 ; Morbid obesity E66.01 ; GERD ( gastroesophageal reflux disease) K21.9 ; Metabolic syndrome E88.81 and Headache R51 [facility] [address] [place] [address] AVE [id number], [place] [id number] Apr, [address] [id number], [place] [phone] Apr, Carpal tunnel syndrome of left wrist G56.02 and Muscle spasm M62.838 [facility] [id number] [place] [address]- 2818 Mar, Carpal tunnel syndrome of left wrist G56.02 [facility] [address] [id number], [place] [id number] Mar, Left elbow pain M25.522 [place] [address] [place] [address] 90115298- 6727 February, Dental examination Z01.20 [facility] [address] [id number], [place] [id number] February, Acute pain of left shoulder M25.512 ; Left elbow pain M25.522 ; Renal insufficiency N28.9 and Metabolic syndrome E88.[address] [id number], [place] [id number] February, [facility] [address] [id number], [place] [id number] February, Neck pain M54.2 ; Metabolic syndrome E88.81 ; Morbid obesity E66.01 ; Bilateral headaches R51 and Dizziness R42 [facility] [address] [id number], [place] [id number] Oct, Dizziness R42 and History of panic attacks Z86.59 [facility] [address] [id number], [place] [id number] Oct, Neck pain M54.2 ; Metabolic syndrome E88.81 ; Headache R51 and Diarrhea R19.[address] [id number], [place] [id number] Oct, [address] [place] [address] [id number] Oct, Diarrhea R19.7 ; Dehydration E86.0 and Headache R51 [address]00565100[place], [place] [id number] Sep, Metabolic syndrome E88.81 ; GERD (gastroesophageal reflux disease ) K21.9 ; Diarrhea R19.7 ; Dehydration E86.0 and Hyperlipemia E78.[address] [id number], [place] [id number] Aug, [address] [place] [address] [id number] Aug, Morbid obesity E66.01 ; Viral syndrome B34.9 ; Hyperlipemia E78.5 ; Chronic pain G89.29 ; Exercise counseling Z71.89 ; Cough R05 ; Depression with anxiety F41.8 ; Dietary counseling Z71.3 ; Fever blister B00.1 and GERD ( gastroesophageal reflux disease) K21.9 [address] [place] [address] [id number] Aug, Viral syndrome B34.9 ; Cough R05 and Fever blister B00.[address] [id number], [place] [id number] Aug, Morbid obesity E66.01 ; Exercise counseling Z71.89 ; Dietary counseling Z71.3 ; Hyperlipemia E78.5 ; Chronic pain G89.29 ; Depression with anxiety F41.8 and GERD (gastroesophageal reflux disease) K21.9 [address]00565100[place], [place] [id number] Jun, Contact dermatitis 692.9 [place] [id number] [place] [address] [id number] Jun, GERD (gastroesophageal reflux disease) 530.81 and Hyperlipidemia 272.4 [place] [id number] [place] [address] [id number] May, Hyperlipidemia 272.4 and Headache 784.0 [facility] [address] [place] [address] [id number] Mar, [facility] [place] [id number] [place] [address] [id number] Mar, Asthma 493.90 [facility] [address] [place] [address] [id number] Mar, [facility] [place] [id number] [place] [address] [id number] February, Suspicious nevus 238.2 [facility] [address] [place] [address] [id number] February, Depression 311 and Hyperlipidemia 272.4 [facility] [place] [id number] [place] [address] [id number] February, [facility] [address] [place] [address] [id number] February, Anxiety state 300.00 ; Screening for lipid disorders V77.91 ; Screening for hypothyroidism V77.0 and Depressive disorder, not elsewhere classified 311 [facility] [address] [place] [address] [id number] Jan, Anxiety state, unspecified 300.00 ; Depression 311 and Headache 784.0 [facility] [address] [place] [address] [id number] Jan, [facility] [id number] [place] [address] 08346 2546 Jan, [facility] [id number] [place] [address] 50469- 2546 Jan, [facility] [id number] [place] [address] 97463 2546 Nov, [facility] [address] [place] [address] [id number] Nov, [address] [place] [address] [phone] Nov, [facility] [address] [address] 2546 Nov, [facility] [address] [facility] [id number] [place] [id number] Nov, [facility] [place] [facility] [address] [facility] [id number] [address]- [address] Nov, [facility] [address] [facility] [id number] [place] [id number] Oct, [facility] [place] [facility] [address]00565100[place] [address] 2546 Oct, [facility] [address] [facility] [id number], [place] [id number] Sep, [facility] [place] [facility] [address]00565100[place] [address]- 9466 Sep, [facility] [address] [facility] [id number], [place] [id number] Jul, [facility] [place] [facility] [address]00565100[place] [address]- 9696 Jul, [facility] [address] [facility] [id number], [place] [id number] Jul, [facility] [place] [facility] [address]00565100[place] [address]- 1786 Jul, [facility] [place] [facility] [address]00565100[place] [address]- 2546 Jul, [facility] [address] [facility] [id number], [place] [id number] Jul, [facility] [address] [facility] [id number], [place] [id number] Jul, [facility] [place] [facility] [address] [facility] [id number] [place] [address]- 2546 Jul, [facility] [address] [facility] [id number], [place] [id number] Jun, [facility] [place] [facility] [address] [facility] [id number] [place] [address]- 5656 Jun, [facility] [address] [facility] [id number], [place] [id number] May, [facility] [place] [facility] [address] [facility] [id number] [place] [address]- 2546 May, [facility] [place] [facility] [address] [facility] [id number] [place] [address]- 2546 Apr, [facility] [address] [facility] [id number] [place] [id number] Apr, [facility] [place] [facility] [address] [facility] [id number] [place] [address]- 2546 Apr, [facility] [address] [facility] [id number] [place] [id number] Mar, [facility] [place] [facility] [address] [facility] [id number] [place] [address]- 9636 Mar, [facility] [address] [facility] [id number], [place] [id number] Mar, [facility] [address] [facility] [id number], [place] [id number] Mar, [facility] [place] [facility] [address] [facility] [id number] [place] [address]- 2856 Mar, [facility] [place] [facility] [address] [facility] [id number] [place] [address]- 2076 Mar, [facility] [address] [facility] [id number], [place] [id number] February, [facility] [place] [facility] [address] [facility] [id number] [place] [address]- 0896 February, [facility] [address] [facility] [id number], [place] [id number] February, [facility] [place] [facility] [address] [facility] [id number] [place] [address]- 2546 February, [facility] [address] [facility] [id number], [place] [id number] Jan, [facility] [place] [facility] [address] [facility] [id number] [place] [address]- 1076 Jan, [facility] [address] [facility] [id number], [place] [id number] Dec, [facility] [place] [facility] [address] [facility] [id number] [place] [address]- 2546 Dec, [facility] [address] [facility] [id number] [place] [id number] Dec, [facility] [place] [facility] [address] [id number] [place] [address]- 2546 Dec, [facility] [address] [id number] [place] [id number] Dec, [facility] [address] [id number] [place] [id number] Dec, [facility] [place] [facility] [address] [place] [address]- 2546 Dec, [facility] [place] [facility] [address] [id number] [place] [address]- 2546 Dec, [facility] [address] [id number], [place] [id number] Nov, [facility] [place] [facility] [address] [id number] [place] [address]- 8936 Nov, [facility] [address] [id number], [place] [id number] Oct, [facility] [place] [facility] [address] [id number] [address]- 9696 Oct, [facility] [place] [facility] [address]00565100[place] [address]- 2546 Sep, [facility] [place] [facility] [address] [facility] [id number] [place] [address]- 2546 Sep, [facility] [address] [facility] [id number] [place] [id number] Sep, [facility] [place] [facility] [address] [facility] [id number] [place] [address]- 2546 Sep, [facility] [address] [id number], [place] [id number] Aug, [facility] [place] [facility] [address] [id number] [address]- 9028 Aug, [facility] [address] [id number] [place] [address]- 2271 Jul, [facility] [place] [facility] [address] [id number] [place] [address]- 0747 Jul, [facility] [address] [id number] [place] [address]- 4934 Jul, [facility] [address] [facility] [id number], [place] [id number] Jul, [facility] [address] [id number] [place] [address]- 4862 Jul, [facility] [place] [facility] [address] [facility] [id number] [place] [address] Jul, [facility] [address] [facility] [id number] [place] [address] Jul, [facility] [address] [facility] [id number][place] [id number] Jul, [facility] [address] [facility] [id number] [place] [address] Jul, [facility] [address] [facility] [id number][place] [id number] Jun, [facility] [address] [facility] [id number][place] [id number] May, [facility] [place] [facility] [address] [facility] [id number] [place] [address] May, [facility] [place] [facility] [address] [facility] [id number] [place] [address] May, [facility] [place] [facility] [address] [facility] [id number] [place] [address] May, [facility] [place] [facility] [address] [facility] [id number] [place] [address] May, [facility] [address] [facility] [id number][place] [id number] May, [facility] [address] [id number] [place] [id number] May, [facility] [address] [id number] [place] [id number] Apr, [facility] [address] [id number] [place] [address] Mar, [facility] [address] [id number] [place] [id number] Mar, [facility] [address] [id number] [place] [id number] February, [facility] [address] [facility] [id number] [place] [address] February, [facility] [address] [id number] [place] [id number] February, [facility] [address] [id number] [place] [id number] Jan, [facility] [address] [id number] [place] [id number] Jan, [facility] [address] [id number] [place] [id number] Dec, [facility] [address] [id number] [place] [id number] Dec, [facility] [id number] [address] Nov, [facility] [address] [facility] [id number] [place] [address] Nov, [facility] [address] [id number] [place] [id number] Oct, [facility] [address] [id number] [place] [id number] Oct, [facility] [address] [id number] [place] [id number] Sep, [facility] [address] [facility] [id number] [place] [address] Sep, [facility] [address] [id number] [place] [id number] Aug, [facility] [facility] [address] [facility] [id number] [address] Aug, [facility] [place] [facility] [address] [facility] [id number] [place] [address] May, [facility] [address] [id number] [place] [id number] May, [facility] [address] [id number] [place] [id number] May, [facility] [place] [facility] [address] [id number] [place] [address] Apr, [facility] [address] [id number] [place] [id number] Apr, [facility] [address] [id number] [place] [id number] Apr, [facility] [address] [id number] [place] [id number] Apr, [facility] [address] [id number] [place] [id number] Mar, [facility] [address] [id number] [place] [id number] Mar, [facility] [place] [facility] [address] [facility] [id number] [place] [address] Mar, [facility] [place] [facility] [address] [facility] [id number] [place] [address] February, [facility] [address] [id number] [place] [id number] February, [facility] [address] [id number] [place] [id number] February, [facility] [address] [id number] [place] [id number] Dec, [facility] [address] [id number] [place] [id number] Dec, [facility] [address] [id number][place] [id number] Dec, [facility] [address] [id number] [place] [id number] Dec, [facility] [address] [id number] [place] [id number] Dec, [facility] [address] [id number] [place] [id number] Dec, [facility] [address] [id number] [place] [id number] Dec, [facility] [address] [id number] [place] [id number] Nov, [facility] [place] [facility] [address] [facility] [id number] [place] [address] Nov, [facility] [address] [id number] [place] [id number] Nov, [facility] [address] [id number] [place] [id number] Oct, [facility] [place] [facility] [address] [facility] [id number] [place] [address] Oct, [facility] [address] [facility] [id number] [place] [id number] Oct, [facility] [place] [facility] [id number] [address] Oct, [facility] [place] [facility] [id number] [address] Sep, [facility] [place] [facility] [id number] [address] Sep, [facility] [place] [facility] [address] [facility] [id number] [place] [address] Sep, [facility] [place] [facility] [id number] [address] Aug, [facility] [place] [facility] [id number] [address] Jul, [facility] [place] [facility] [address] [id number] [address] Jul, [facility] [address] [facility] [id number] [address] February, [facility] [address] [facility] [id number] [place] [address] Jan, IMMUNIZATIONS No Known Immunizations SOCIAL HISTORY Never Assessed REASON FOR VISIT ER f/u for back pain Alvina CHARLES PLAN OF CARE Activity Details Follow Up 4 Weeks Reason:wt loss VITAL SIGNS Height 68 in 2018-02-20 Weight 341 lbs 2018-02-20 Temperature 97.9 degrees Fahrenheit 2018-02-20 Heart Rate 90 bpm 2018-02-20 Respiratory Rate 16 2018-02-20 BMI 51.84 kg/m2 2018-02-20 Blood pressure systolic 122 mmHg 2018-02-20 Blood pressure diastolic 78 mmHg 2018-02-20 MEDICATIONS Medication Instructions Dosage Frequency Start Date End Date Duration Status Nitrofurantoin Monohyd Macro 100 mg Orally every 12 hrs 1 capsule with food 12h February, February, 7 day(s) Active Trazodone HCl 50 mg Orally Once a day .5-1 tablet at bedtime as needed 24h Active Venlafaxine HCl 100 mg Orally twice a day 1 tablet with food 12h 0 Active MetFORMIN HCl ER 500 mg Orally Once a day at night 1 tablet with evening meal Sep, 0 days Active Cymbalta 60 MG Orally Twice a day 1 capsule 12h Sep, Active Omeprazole 40 mg Orally TID PRN 1 capsule 0 days Active Ibuprofen 800 MG Orally Three times a day 1 tablet with food or milk as needed 8h Active Tramadol HCl 50 mg Orally 2 times a day, PRN, Must last 28 days. 1 tablet as needed Active Cyclobenzaprine HCl 10MG TAKE ONE-HALF TABLET BY MOUTH TWICE DAILY Active Erythromycin 2 % Externally Twice a day 1 application to affected area 12h Dec, Not-Taking Phentermine HCl 37.5 MG Orally Once a day 1 capsule 24h Dec, Active RESULTS Name Result Date Reference Range UA LONG DIP (IN HOUSE) 2018-02-20 Lot # [id number] Exp date 01/2019 Clarity cloudy Color yellow Odor no GLU neg TREMAYNE neg KET neg SG >=1.010 BLO neg pH 5.5 Protein trace URO 1.0 NIT neg NEGRA 1+ Lot # Exp date PROCEDURES Procedure Date Ordered Result Body Site URINALYSIS, AUTO, W/O SCOPE February 20, 2018 INSTRUCTIONS MEDICATIONS ADMINISTERED No Known Medications [...] by son 11/2016 Hospitalization History [facility] for headache 05/28/17
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
--- OUTSIDE RECORDS SUMMARY | 2018-07-24 06:09 | XMS REPORT ---
Author Author VERONICA INIGUEZ 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 Active 22844788 Problem Carpal tunnel syndrome of right wrist G56.01 Active 91649745 Problem Hyperlipemia E78.5 Active 88272089 Problem BMI 50.0-59.9, adult Z68.43 Active 636168932 Problem Morbid obesity E66.01 Active 765319801 Problem Controlled type 2 diabetes mellitus without complication, without long -term current use of insulin E11.9 Active 724272743 Problem Intractable migraine with aura without status migrainosus G43.119 Active 766354827 Problem Acne rosacea L71.9 Active 203586848 Problem Neuropathic arthropathy M14.60 Active 85246778 Problem GERD (gastroesophageal reflux disease) K21.9 Active 773954950 Problem Metabolic syndrome E88.81 Active 434669809 Problem Depression with anxiety F41.8 Active 685123306 Problem Chronic pain G89.29 Active 95130506 Problem Anxiety associated with depression F41.8 Active 632237734 Problem Myalgia M79.1 Active 44859652 Problem Headache R51 Active 63910738 Problem Lumbago with sciatica, left side M54.42 Active 246699208 Problem Neck pain M54.2 Active 24468766 Problem Plantar fasciitis M72.2 Active 307683165 ALLERGIES No Information ENCOUNTERS Encounter Location Date Diagnosis [facility] [address] [facility] [id number] [id number] February, Neuropathic arthropathy M14.60 [facility] [id number], [place] [id number] 15 Feb, 2018 Neuropathic arthropathy M14.60 ; Spinal stenosis of lumbar region M48.06 and BMI 50.0-59.9, adult Z68.43 [facility] [id number], [place] [id number] February, BMI 50.0-59.9, adult Z68.43 [facility] [id number] [place] [address] [id number] February, Radiculopathy of lumbar region M54.16 [facility] [place] [id number] [place] [address] [id number] February, Radiculopathy of lumbar region M54.16 and Infective urethritis N34.2 [facility] [id number] [place] [address] [id number] Jan, Neuropathic arthropathy M14.60 [facility] [id number] [place] [address] [id number] Jan, BMI 50.0-59.9, adult Z68.43 ; Controlled type 2 diabetes mellitus without complication, without long-term current use of insulin E11.9 and Neuropathic arthropathy M14.60 [facility] [place] [id number] [place] [address] [id number] Dec, Carpal tunnel syndrome of right wrist G56.01 and 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 [facility] [id number] [place] [address] [id number] Dec, BMI 50.0-59.9, adult Z68.43 ; Acne rosacea L71.9 ; Neuropathic arthropathy M14.60 and GERD (gastroesophageal reflux disease) K21.9 [place] [id number] [place] [address] [id number] Nov, [facility] [id number] [place] [address] [id number] Nov, Infective urethritis N34.2 [facility] [id number] [place] [address] [id number] Nov, Skin tag L91.8 and BMI 50.0-59.9, adult Z68.43 [facility] [address]00565100[place] [address] Oct, Neuropathic arthropathy M14.60 [facility] [address] [address] [id number], [place] [address] Oct, 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 [facility] [id number], [place] [id number] Sep, Radiculopathy of lumbar region M54.16 and Neuropathic arthropathy M14.60 [address] [place] [address] [id number] Sep, Controlled type 2 diabetes mellitus without complication, without long- term current use of insulin E11.9 [address] [place] [address] [id number] Sep, Controlled type 2 diabetes mellitus without complication, without long- term current use of insulin E11.9 [address] [place] [address] [id number] Sep, [address] [place] [address] [id number] Sep, 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 ; Neuropathic arthropathy M14.60 and BMI 50.0-59.9, adult Z68.43 [id number] [id number] Sep, Controlled type 2 diabetes mellitus without complication, without long- term current use of insulin E11.9 ; Dysuria R30.0 ; 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 and Morbid obesity E66.01 [facility] [place] [address] [facility] [id number] [id number] Aug, [address] [id number], [place] [id number] Jul, Morbid obesity E66.01 [facility] [place] [address]00565100[place], [place] [address] Jul, Morbid obesity E66.01 [place] [id number] [place] [address] [id number] Jul, Morbid obesity E66.01 ; Encounter for immunization Z23 ; Insect bite ( nonvenomous), left ankle, initial encounter S90.562A ; Bitten or stung by nonvenomous insect and other nonvenomous arthropods, initial encounter W57.XXXA and Acute cystitis without hematuria N30.00 [place] [id number] [place] [address] [id number] Jun, GERD (gastroesophageal reflux disease) K21.9 [place] [id number] [place] [address] [id number] Jun, [place] [id number] [place] [address] [id number] Jun, Morbid obesity E66.01 [facility] [id number] [place] [address] [id number] May, [place] [id number] [place] [address] [id number] May, [place] [id number] [place] [address] [id number] May, Intractable migraine with aura without status migrainosus G43.119 and Vertigo R42 [facility] [place] [address]00565100[place], [place] [address] Apr, [place] [address] [place] [address] [id number] Apr, Radiculopathy of lumbar region M54.16 ; 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 ; Morbid obesity E66.01 ; Depression with anxiety F41.8 ; Metabolic syndrome E88.81 and GERD ( gastroesophageal reflux disease) K21.9 [place] [address] [place] [address] [id number] February, [place] [address] [place] [address] [id number] February, Spinal stenosis of lumbar region M48.06 and Anxiety associated with depression F41.8 [facility] [id number] [place] [address] [id number] February, Anxiety associated with depression F41.8 [facility] [place] [id number] [place] [address] [id number] February, Low back pain M54.5 [facility] [place] [id number] [place] [address] [id number] February, Low back pain M54.5 and Myalgia M79.1 [facility] [place] [id number] [place] [address] [id number] Jan, [facility] [place] [id number] [place] [address] [id number] Jan, Anxiety associated with depression F41.8 [facility] [id number] [place] [address]20 2548 Jan, [facility] [address] [id number], [place] [id number] Jan, Metabolic syndrome E88.81 [facility] [place] [id number] [place] [address] [id number] Jan, Lumbago with sciatica, left side M54.42 and Plantar fasciitis M72.2 [facility] [id number] [place] [address]- 7699 Dec, [facility] [place] [id number] [place] [address] [id number] Dec, Myalgia M79.1 and Anxiety associated with depression F41.8 [facility] [address] [place] [address] [id number] 14 Nov, 2016 Myalgia M79.1 [facility] [id number] [phone] Aug, [facility] [place] [address] [id number][place] [id number] Aug, Upper respiratory tract infection, unspecified type J06.9 ; Encounter for immunization Z23 and Tinea pedis of left foot B35.3 [place] [address]00565100[place], [place] [address]- [address] Aug, [place] [address]00565100[place], [place] [address]- [address] Jul, Dental examination Z01.[address] [id number], [place] [id number] Apr, Anxiety associated with depression F41.[id number] [place] [address] [id number] Apr, Depression with anxiety F41.8 ; Morbid obesity E66.01 ; GERD ( gastroesophageal reflux disease) K21.9 ; Metabolic syndrome E88.81 and Headache R51 [address] [id number], [place] [id number] Apr, [facility] [id number] [place] [address] [id number] Apr, Carpal tunnel syndrome of left wrist G56.02 and Muscle spasm M62.838 [place] [address]00565100[place], [place] [address]- 6[address] Mar, Carpal tunnel syndrome of left wrist G56.[address] [id number], [place] [id number] Mar, Left elbow pain M25.522 [place] [address] [place] [address] 66[address]- 7090 February, Dental examination Z01.[address] [id number], [place] [id number] February, Acute pain of left shoulder M25.512 ; Left elbow pain M25.522 ; Renal insufficiency N28.9 and Metabolic syndrome E88.81 [facility] [id number] [place] [address] [id number] February, [address] [id number], [place] [id number] February, Neck pain M54.2 ; Metabolic syndrome E88.81 ; Morbid obesity E66.01 ; Bilateral headaches R51 and Dizziness R42 [facility] [place] [address] AVE [id number], [place] [id number] Oct, Dizziness R42 and History of panic attacks Z86.[address] [id number], [place] [id number] Oct, Neck pain M54.2 ; Metabolic syndrome E88.81 ; Headache R51 and Diarrhea R19.[address]65[address], [place] [id number] Oct, [address]65100[place], [place] [id number] Oct, Diarrhea R19.7 ; Dehydration E86.0 and Headache R51 [address]65[address], [place] [id number] Sep, Metabolic syndrome E88.81 ; GERD (gastroesophageal reflux disease ) K21.9 ; Diarrhea R19.7 ; Dehydration E86.0 and Hyperlipemia E78.[address] [id number], [place] [id number] Aug, [address] [place] [address] [id number] Aug, Morbid obesity E66.01 ; Viral syndrome B34.9 ; Hyperlipemia E78.5 ; Chronic pain G89.29 ; Exercise counseling Z71.89 ; Cough R05 ; Depression with anxiety F41.8 ; Dietary counseling Z71.3 ; Fever blister B00.1 and GERD ( gastroesophageal reflux disease) K21.9 [address] [place] [address] [id number] Aug, Viral syndrome B34.9 ; Cough R05 and Fever blister B00.[address] [id number], [place] [id number] 06 Nov, 2015 Morbid obesity E66.01 ; Exercise counseling Z71.89 ; Dietary counseling Z71.3 ; Hyperlipemia E78.5 ; Chronic pain G89.29 ; Depression with anxiety F41.8 and GERD (gastroesophageal reflux disease) K21.9 [place] [address] [place] [address] [id number] 14 Jun, 2015 Contact dermatitis 692.[address] [id number] 10 Jun, 2015 GERD (gastroesophageal reflux disease) 530.81 and Hyperlipidemia 272.4 [place] [address] [place] [address] [id number] May, Hyperlipidemia 272.4 and Headache 784.[address] [id number] Mar, [place] [address] [place] [address] [id number] Mar, Asthma 493.[address] [id number] Mar, [place] [address] [place] [address] [id number] February, Suspicious nevus 238.[address] [id number] February, Depression 311 and Hyperlipidemia 272.4 [address] [place] [address] [id number] February, [address] [id number] February, Anxiety state 300.00 ; Screening for lipid disorders V77.91 ; Screening for hypothyroidism V77.0 and Depressive disorder, not elsewhere classified [address] [place] [address] [id number] Jan, Anxiety state, unspecified 300.00 ; Depression 311 and Headache 784.0 [place] [address] [place] [address] [id number] Jan, [facility] [place] [address] [id number]- 8996 Jan, [facility] [place] [facility] [address] [facility] [id number], [place] [address]- 3438 Jan, [facility] [place] [facility] [address] [facility] [id number] [place] [address]- 2531 Nov, [facility] [address] [id number], [place] [id number] Nov, [facility] [address] [id number] [place] [id number] Nov, [facility] [place] [facility] [address] [facility] [id number] [place] [address]- 2398 Nov, [facility] [address] [facility] [id number] [place] [id number] Nov, [facility] [place] [facility] [address] [facility] [id number], [place] [address]- 9086 Nov, [facility] [id number], [place] [id number] Oct, [facility] [place] [facility] [address] [facility] [id number], [place] [address]- 9287 Oct, [facility] [address] [facility] [id number], [place] [id number] Sep, [facility] [place] [facility] [address]00565100[place], [place] [address]- 3[address] Sep, [facility] [address] [facility] [id number], [place] [id number] Jul, [facility] [place] [facility] [address] [facility] [id number], [place] [address]- 2489 Jul, [facility] [address] [facility] [id number], [place] [id number] Jul, [facility] [place] [facility] [address] [facility] [id number], [place] [address]- 4847 Jul, [facility] [place] [facility] [address] [facility] [id number], [place] [address]- 0166 Jul, [facility] [address] [facility] [id number], [place] [id number] Jul, [facility] [address] [id number] [place] [id number] Jul, [facility] [place] [facility] [address] [id number] [place] [address]- 2546 Jul, [facility] [address] [id number] [place] [id number] Jun, [facility] [place] [facility] [address] [facility] [id number] [place] [address] 2546 Jun, [facility] [address] [id number] [place] [id number] May, [facility] [place] [facility] [address] [facility] [id number] [place] [address]- 6866 May, [facility] [place] [facility] [address] [place] [id number] [address]- 4009 Apr, [facility] [address] [facility] [id number], [place] [id number] Apr, [facility] [place] [facility] [address] [facility] [id number], [place] [address]- 8304 Apr, [facility] [address] [id number] [place] [id number] Mar, [facility] [place] [facility] [address] [facility] [id number], [place] [address]- 3292 Mar, [facility] [address] [id number] [place] [id number] Mar, [facility] [address] [id number], [place] [id number] Mar, [facility] [place] [facility] [address] [facility] [id number], [place] [address]- 3337 Mar, [facility] [place] [facility] [address] [facility] [id number], [place] [address]- 5283 Mar, [facility] [address] [facility] [id number] [place] [id number] February, [facility] [place] [facility] [address] [facility] [id number], [place] [address]- 2546 February, [facility] [address] [facility] [id number] [place] [id number] February, [facility] [place] [facility] [address] [facility] [id number], [place] [address]- 2546 February, [facility] [address] [facility] [id number] [place] [id number] Jan, [facility] [place] [facility] [address] [facility] [id number], [place] [address] 2546 Jan, [facility] [address] [facility] [id number] [place] [id number] Dec, [facility] [place] [facility] [address] [facility] [id number] [place] [address]- 2546 Dec, [facility] [address] [place] [address] [id number] [place] [id number] Dec, [facility] [place] [facility] [address]00565100[place], [place] [address]- 8196 Dec, [facility] [address] [facility] [id number], [place] [id number] Dec, [facility] [address] [facility] [id number] [place] [id number] Dec, [facility] [place] [facility] [address] [id number], [place] [address]- 2546 Dec, [facility] [place] [facility] [address] [id number], [place] [address]- 8796 Dec, [facility] [address] [facility] [id number], [place] [id number] Nov, [facility] [place] [facility] [address] [facility] [id number], [place] [address]- 9936 Nov, [facility] [address] [facility] [id number], [place] [id number] Oct, [facility] [place] [facility] [address] [id number], [place] [address]- 4076 Oct, [facility] [place] [facility] [address] [facility] [id number], [place] [address]- 3336 Sep, [facility] [place] [facility] [address] [id number], [place] [address]- 2626 Sep, [facility] [address] [id number], [place] [id number] Sep, [facility] [place] [facility] [address] [facility] [id number], [place] [address]- 2546 Sep, [facility] [address] [id number], [place] 939284491 Aug, [facility] [place] [facility] [address] [id number], [place] [address] 2546 Aug, [facility] [place] [facility] [address] [facility] [id number], [place] [address]- 0226 Jul, [facility] [place] [facility] [address]00565100[place], [place] [address]- 8426 Jul, [facility] [place] [facility] [address] [facility] [id number], [place] [address]- 9875 Jul, [facility] [address] [facility] [id number], [place] 874177634 Jul, [facility] [place] [facility] [address] [facility] [id number], [place] [address]- 2686 Jul, [facility] [place] [facility] [address] [facility] [id number], [place] [address]- 3776 Jul, [facility] [place] [facility] [address] [facility] [id number], [place] [address]- 0126 Jul, [facility] [address] [id number], [place] 029462902 Jul, [facility] [place] [facility] [address] [facility] [id number], [place] [address]- 2546 Jul, [facility] [address] [id number], [place] [id number] Jun, [facility] [address] [id number], [place] [id number] May, [facility] [address] [facility] [id number], [place] [address]- 1095 May, [facility] [address] [facility] [id number], [place] 740759- 9479 May, [facility] [address] [facility] [id number], [place] [address]- 7207 May, [facility] [address] [facility] [id number], [place] [address]- 7083 May, [facility] [address] [id number] [place] [id number] May, [facility] [address] [id number] [place] [id number] May, [facility] [address] [id number] [place] [id number] Apr, [facility] [address]00565100[place], [place] [address]- 3686 Mar, [facility] [address] [id number] [place] [id number] Mar, [facility] [address] [id number] [place] [id number] February, [facility] [address] [facility] [id number], [place] [address]- 5636 February, [facility] [address] [id number], [place] [id number] February, [facility] [address] [id number], [place] 214824194 Jan, [facility] [address] [id number] [place] [id number] Jan, [facility] [address] [id number] [place] [id number] Dec, [facility] [address] [id number] [place] [id number] Dec, [facility] [address] [facility] [id number], [place] [address]- 6570 Nov, [facility] [place] [facility] [address] [id number] [place] [address]- 6016 Nov, [facility] [address] [id number] [place] [id number] Oct, [facility] [place] [address] [id number] [place] [id number] Oct, [facility] [place] [address] [id number] [place] [id number] Sep, [facility] [place] [facility] [address] [facility] [id number] [place] [address] Sep, [facility] [place] [address] [id number] [place] [id number] Aug, [facility] [place] [facility] [address] [facility] [id number], [place] [address] Aug, [facility] [address] [address] May, [facility] [place] [address] [id number] [place] [id number] May, [facility] [address] [id number] [place] [id number] May, [facility] [place] [facility] [address], [place] [address] Apr, [facility] [place] [address] [id number] [place] [id number] Apr, [facility] [place] [address] [id number] [place] [id number] Apr, [facility] [place] [address] [id number] [place] [id number] Apr, [facility] [address] [id number] [place] [id number] Mar, [facility] [address] [id number] [place] [id number] Mar, [facility] [place] [facility] [address] [facility] [id number] [place] [address] Mar, [facility] [place] [facility] [address] [id number], [place] [address] February, [facility] [place] [address] [id number] [place] [id number] February, [facility] [address] [id number] [place] [id number] February, [facility] [place] [address] [id number] [place] [id number] Dec, [facility] [place] [address] [id number] [place] [id number] Dec, [facility] [place] [address] [id number] [place] [id number] Dec, [facility] [place] [address] [id number] [place] [id number] Dec, [facility] [address] [id number] [place] [id number] Dec, [facility] [address] [id number] [place] [id number] Dec, [facility] [address] [id number] [place] [id number] Dec, [facility] [address] [id number] [place] [id number] Nov, [facility] [address], [place] [address] Nov, [facility] [address] [id number] [place] [id number] Nov, [facility] [address] [id number] [place] [id number] Oct, [facility] [id number] [place] [address] Oct, [facility] [address] [facility] [id number] [place] [id number] Oct, [facility] [address], [place] [address] Oct, [facility] [id number] [place] [id number] Sep, [facility] [place] [address] [facility] [facility] [id number], [place] [address] Sep, [facility], [place] [address] [id number], [place] [address] Sep, [facility], [place] [address] [id number], [place] [address] Aug, [facility], [place] [id number], [place] [address] Jul, [facility], [place] [address] [id number], [place] [address] Jul, [facility], [place] [id number], [place] [address] February, [facility], [place] [address] [id number], [place] [address] Jan, IMMUNIZATIONS No Known Immunizations SOCIAL HISTORY Never Assessed REASON FOR VISIT metformin mod PLAN OF CARE VITAL SIGNS MEDICATIONS Medication Instructions Dosage Frequency Start Date End Date Duration Status MetFORMIN HCl ER 500 mg Orally Once a day at night 1 tablet with evening meal Sep, 0 days Active RESULTS No Results PROCEDURES [...] by son 11/[address] [facility] for headache 05/28/17
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
--- OUTSIDE RECORDS SUMMARY | 2018-07-24 06:12 | XMS REPORT ---
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 Active 05083628 Problem Carpal tunnel syndrome of right wrist G56.01 Active 33754236 Problem Hyperlipemia E78.5 Active 76000871 Problem BMI 50.0-59.9, adult Z68.43 Active 330797838 Problem Morbid obesity E66.01 Active 132805417 Problem Controlled type 2 diabetes mellitus without complication, without long -term current use of insulin E11.9 Active 244700497 Problem Intractable migraine with aura without status migrainosus G43.119 Active 016902410 Problem Acne rosacea L71.9 Active 966428613 Problem Neuropathic arthropathy M14.60 Active 42769576 Problem GERD (gastroesophageal reflux disease) K21.9 Active 979241313 Problem Metabolic syndrome E88.81 Active 997888861 Problem Depression with anxiety F41.8 Active 178218759 Problem Chronic pain G89.29 Active 93159243 Problem Anxiety associated with depression F41.8 Active 814248056 Problem Myalgia M79.1 Active 26800775 Problem Headache R51 Active 71478490 Problem Lumbago with sciatica, left side M54.42 Active 017369404 Problem Neck pain M54.2 Active 08255761 Problem Plantar fasciitis M72.2 Active 387775331 ALLERGIES No Information ENCOUNTERS Encounter Location Date Diagnosis [facility] [address] [facility] [id number] [id number] Mar, Neuropathic arthropathy M14.60 ; GERD (gastroesophageal reflux disease) K21.9 and Controlled type 2 diabetes mellitus without complication, without long -term current use of insulin E11.9 [facility] [place] [id number] [place] [address] [id number] February, Neuropathic arthropathy M14.60 [facility] [place] [id number] [place] [address] [id number] February, Neuropathic arthropathy M14.60 ; Spinal stenosis of lumbar region M48.06 and BMI 50.0-59.9, adult Z68.43 [facility] [place] [id number] [place] [address] [id number] February, BMI 50.0-59.9, adult Z68.43 [facility] [place] [address] [id number] February, Radiculopathy of lumbar region M54.16 [facility] [place] [id number] [place] [address] [id number] February, Radiculopathy of lumbar region M54.16 and Infective urethritis N34.2 [facility] [place] [id number] [place] [address] [id number] Jan, Neuropathic arthropathy M14.60 [facility] [place] [id number] [place] [address] [id number] Jan, BMI 50.0-59.9, adult Z68.43 ; Controlled type 2 diabetes mellitus without complication, without long-term current use of insulin E11.9 and Neuropathic arthropathy M14.60 [facility] [place] [id number] [place] [address] [id number] Dec, Carpal tunnel syndrome of right wrist G56.01 and 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 [facility] [place] [id number] [place] [address] [id number] Dec, BMI 50.0-59.9, adult Z68.43 ; Acne rosacea L71.9 ; Neuropathic arthropathy M14.60 and GERD (gastroesophageal reflux disease) K21.9 [facility] [place] [id number] [place] [address] [id number] Nov, [id number] [id number] Nov, Infective urethritis N34.[address] [place] [address] [id number] Nov, Skin tag L91.8 and BMI 50.0-59.9, adult Z68.43 [facility] [address]00565100[place] [address] Oct, Neuropathic arthropathy M14.60 [address] [place] [address] [id number] Oct, 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 [address]00565100[place] [id number] Sep, Radiculopathy of lumbar region M54.16 and Neuropathic arthropathy M14.60 [address]00565100[place] [id number] Sep, Controlled type 2 diabetes mellitus without complication, without long- term current use of insulin E11.9 [address] [place] [address] [id number] Sep, Controlled type 2 diabetes mellitus without complication, without long- term current use of insulin E11.9 [address] [place] [address] [id number] Sep, [address] [place] [address] [id number] Sep, 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 [place] [address] [facility] [id number] [id number] Aug, [address] [place] [address] [id number] Jul, Morbid obesity E66.01 [facility] [id number] [place] [address]- 9445 Jul, Morbid obesity E66.01 [place] [id number] [place] [address] [id number] Jul, Morbid obesity E66.01 ; Encounter for immunization Z23 ; Insect bite ( nonvenomous), left ankle, initial encounter S90.562A ; Bitten or stung by nonvenomous insect and other nonvenomous arthropods, initial encounter W57.XXXA and Acute cystitis without hematuria N30.[address] [place] [address] [id number] Jun, GERD (gastroesophageal reflux disease) K21.9 [address] [place] [address] [id number] Jun, [place] [id number] [place] [address] [id number] Jun, Morbid obesity E66.01 [address] [place] [address] [id number] May, [place] [id number] [place] [address] [id number] May, [place] [id number] [place] [address] [id number] May, Intractable migraine with aura without status migrainosus G43.119 and Vertigo R42 [facility] [address] [place] [address] 16991- 6613 Apr, [place] [id number] [place] [address] [id number] Apr, Radiculopathy of lumbar region M54.16 ; 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 ; Morbid obesity E66.01 ; Depression with anxiety F41.8 ; Metabolic syndrome E88.81 and GERD ( gastroesophageal reflux disease) K21.9 [facility] [place] [id number] [place] [address] [id number] February, [facility] [place] [id number] [place] [address] [id number] February, Spinal stenosis of lumbar region M48.06 and Anxiety associated with depression F41.8 [facility] [place] [id number] [place] [address] [id number] February, Anxiety associated with depression F41.8 [facility] [place] [id number] [place] [address] [id number] February, Low back pain M54.5 [facility] [place] [id number] [place] [address] [id number] February, Low back pain M54.5 and Myalgia M79.1 [facility] [place] [id number] [place] [address] [id number] Jan, [facility] [place] [id number] [place] [address] [id number] Jan, Anxiety associated with depression F41.8 [facility] [address] [place] [address] 32726- 4931 Jan, [facility] [address] [id number][place] [id number] Jan, Metabolic syndrome E88.81 [facility] [address] [place] [address] [id number] Jan, Lumbago with sciatica, left side M54.42 and Plantar fasciitis M72.2 [facility] [address]00565100[place] [address] Dec, [facility] [place] [id number] [place] [address] [id number] Dec, Myalgia M79.1 and Anxiety associated with depression F41.8 [facility] [place] [address] [place] [address] [id number] 14 Nov, 2016 Myalgia M79.[address] [id number][place] [id number] Aug, [address] [id number], [place] [id number] Aug, Upper respiratory tract infection, unspecified type J06.9 ; Encounter for immunization Z23 and Tinea pedis of left foot B35.3 [place] [address] [place] [address] 72601- 7593 Aug, [place] [address] [place] [address] 94886- 4949 Jul, Dental examination Z01.[address] [id number][place] [id number] Apr, Anxiety associated with depression F41.[address] [id number][place] [id number] Apr, Depression with anxiety F41.8 ; Morbid obesity E66.01 ; GERD ( gastroesophageal reflux disease) K21.9 ; Metabolic syndrome E88.81 and Headache R51 [address] [id number], [place] [id number] Apr, [facility] [id number], [place] [id number] Apr, Carpal tunnel syndrome of left wrist G56.02 and Muscle spasm M62.838 [place] [address] [id number], [place] [address] 50[address] Mar, Carpal tunnel syndrome of left wrist G56.[address] [id number], [place] [id number] Mar, Left elbow pain M25.522 [place] [address] [id number], [place] [address]- 9[address] February, Dental examination Z01.[address] [id number], [place] [id number] February, Acute pain of left shoulder M25.512 ; Left elbow pain M25.522 ; Renal insufficiency N28.9 and Metabolic syndrome E88.[address] [place] [address] [id number] February, [facility] [address] [id number][place] [id number] February, Neck pain M54.2 ; Metabolic syndrome E88.81 ; Morbid obesity E66.01 ; Bilateral headaches R51 and Dizziness R42 [address] [facility] [id number][place] [address] Oct, Dizziness R42 and History of panic attacks Z86.59 [place] [id number] [place] [address] [id number] Oct, Neck pain M54.2 ; Metabolic syndrome E88.81 ; Headache R51 and Diarrhea R19.7 [address]00565100[place], [place] [id number] Oct, [place] [id number] [place] [address] [id number] Oct, Diarrhea R19.7 ; Dehydration E86.0 and Headache R51 [address] [place] [address] [id number] Sep, Metabolic syndrome E88.81 ; GERD (gastroesophageal reflux disease ) K21.9 ; Diarrhea R19.7 ; Dehydration E86.0 and Hyperlipemia E78.[address] [id number], [place] [id number] Aug, [place] [id number] [place] [address] [id number] Aug, Morbid obesity E66.01 ; Viral syndrome B34.9 ; Hyperlipemia E78.5 ; Chronic pain G89.29 ; Exercise counseling Z71.89 ; Cough R05 ; Depression with anxiety F41.8 ; Dietary counseling Z71.3 ; Fever blister B00.1 and GERD ( gastroesophageal reflux disease) K21.9 [address] [place] [address] [id number] Aug, Viral syndrome B34.9 ; Cough R05 and Fever blister B00.1 [facility] JO Santos0 [facility] [id number][place] [id number] Aug, Morbid obesity E66.01 ; Exercise counseling Z71.89 ; Dietary counseling Z71.3 ; Hyperlipemia E78.5 ; Chronic pain G89.29 ; Depression with anxiety F41.8 and GERD (gastroesophageal reflux disease) K21.9 [address] [place] [address] [id number] 14 Jun, 2015 Contact dermatitis 692.9 [place] [id number] [place] [address] [id number] 10 Jun, 2015 GERD (gastroesophageal reflux disease) 530.81 and Hyperlipidemia 272.[address] [place] [address] [id number] May, Hyperlipidemia 272.4 and Headache 784.0 [address] [place] [address] [id number] Mar, [address] [place] [address] [id number] Mar, Asthma 493.90 [address] [place] [address] [id number] Mar, [address] [place] [address] [id number] February, Suspicious nevus 238.[address] [place] [address] [id number] February, Depression 311 and Hyperlipidemia 272.4 [place] [id number] [place] [address] [id number] February, [address] [place] [address] [id number] February, Anxiety state 300.00 ; Screening for lipid disorders V77.91 ; Screening for hypothyroidism V77.0 and Depressive disorder, not elsewhere classified [address] [place] [address] [id number] Jan, Anxiety state, unspecified 300.00 ; Depression 311 and Headache 784.0 [facility] [id number], [place] [id number] Jan, [facility] [id number] [place] [address] 48475- 0252 Jan, [facility] [address]00565100[place], [place] [address]- 6498 Jan, [facility] [place] [facility] [id number] [place] [address] 15425- 1711 Nov, [facility] [id number], [place] [id number] Nov, [facility] [id number] [place] [address] [id number] Nov, [facility] [address]00565100[place], [place] [address]- 2390 Nov, [facility] [id number], [place] [id number] Nov, [facility] [address]00565100[place], [place] [address]- 7674 Nov, [facility] [id number], [place] [id number] Oct, [facility] [address]00565100[place], [place] [address]- 3552 Oct, [facility] [id number], [place] [id number] Sep, [facility] [place] [facility] [address]00565100[place], [place] [address]- 9833 Sep, [facility] [id number], [place] [id number] Jul, [facility] [place] [facility] [address]00565100[place], [place] [address]- 0057 Jul, [facility] [address] [id number], [place] [id number] Jul, [facility] [place] [facility] [address]100[facility] [place] [address]- 2546 Jul, [facility] [place] [facility] [address] [id number] [place] [address]- 2546 Jul, [facility] [address] [id number] [place] [id number] Jul, [facility] [address] [facility] [id number] [place] [id number] Jul, [facility] [place] [facility] [address] [facility] [id number][place] [address] 2546 Jul, [facility] [address] [facility] [id number] [place] [id number] Jun, [facility] [place] [facility] [address] [facility] [id number] [place] [address]- 2546 Jun, [facility] [address] [facility] [id number] [place] [id number] May, [facility] [place] [facility] [address]00565100[place], [place] [address] 2546 May, [facility] [place] [facility] [address] [facility] [id number][place] [address]- 254 Apr, [facility] [address] [facility] [id number], [place] [id number] Apr, [facility] [place] [facility] [address] [facility] [id number], [place] [address] 2546 Apr, [facility] [address] [facility] [id number], [place] [id number] Mar, [facility] [place] [facility] [address] [facility] [id number], [place] [address]- 2546 Mar, [facility] [address] [id number] [place] [id number] Mar, [facility] [address] [facility] [id number] [place] [id number] Mar, [facility] [place] [facility] [address] [facility] [id number], [place] [address]- 2546 Mar, [facility] [place] [facility] [address] [facility] [id number] [address]- 8602 Mar, [facility] [address] [facility] [id number] [place] [id number] February, [facility] [place] [facility] [address] [facility] [id number], [place] [address]- 3614 February, [facility] [address] [facility] [id number] [place] [id number] February, [facility] [place] [facility] [address] [facility] [id number], [place] [address]- 1593 February, [facility] [address] [facility] [id number] [place] [address]39[address] Jan, [facility] [place] [facility] [address] [facility] [id number], [place] [address]- 8044 Jan, [facility] [address] [id number] [place] [address] Dec, [facility] [place] [facility] [address] [id number], [place] [address]- 7957 Dec, [facility] [address] [facility] [id number] [place] [id number] Dec, [facility] [place] [facility] [address] [facility] [id number], [place] [address]- 5471 Dec, [facility] [address] [facility] [id number] [place] [id number] Dec, [facility] [address] [facility] [id number] [place] [id number] Dec, [facility] [place] [facility] [address] [facility] [id number], [place] [address]- 6957 Dec, [facility] [place] [facility] [address] [facility] [id number], [place] [address]- 2619 Dec, [facility] [address] [facility] [id number] [place] [id number] Nov, [facility] [place] [facility] [address] [facility] [id number], [place] [address]- 3325 Nov, [facility] [address] [facility] [id number], [place] [id number] Oct, [facility] [address] [id number], [place] [address]- 7125 Oct, [facility] [place] [facility] [address] [facility] [id number] [address]- 8096 Sep, [facility] [address] [facility] [id number], [place] [address]- 7502 Sep, [facility] [place] [address] [facility] [id number], [place] 900[address]1980 Sep, [facility] [address] [facility] [id number], [place] [address]- 0666 Sep, [facility] [place] [address] [facility] [id number], [place] [id number] Aug, [facility] [address] [facility] [id number], [place] [address]- 0503 Aug, [facility] [place] [facility] [address] [facility] [id number], [place] 447162- 0128 Jul, [facility] [address] [facility] [id number], [place] [address]- 4869 Jul, [facility] [place] [facility] [address] [facility] [id number], [place] 45373342- 4799 Jul, [facility] [place] [address] [facility] [id number], [place] [id number] Jul, [facility] [place] [facility] [address] [id number], [place] [address]- 9427 Jul, [facility] [place] [facility] [address] [facility] [id number], [place] [address]- 0218 Jul, [facility] [place] [facility] [address] [facility] [id number], [place] [address]- 0378 Jul, [facility] [place] [address] [facility] [id number], [place] [id number] Jul, [facility] [place] [facility] [address] [facility] [id number][place] [address]- [address] Jul, [facility] [address] [id number] [place] [id number] Jun, [facility] [address] [id number] [place] [id number] May, [facility] [address] [facility] [id number], [place] [address]- 5399 May, [facility] [address] [facility] [id number], [place] [address]- 7268 May, [facility] [address] [facility] [id number], [place] [address]- 0304 May, [facility] [address] [facility] [id number], [place] [address]- 2678 May, [facility] [address] [id number], [place] [id number] May, [facility] [address] [id number], [place] 914840251 May, [facility] [address] [id number][place] [id number] Apr, [facility] [id number], [place] [address] Mar, [facility] [address] [id number][place] [id number] Mar, [facility] [address] [id number][place] [id number] February, [facility] [address] [facility] [id number], [place] [address] February, [facility] [address] [id number] [place] [id number] February, [facility] [address] [id number] [place] [id number] Jan, [facility] [address] [id number][place] [id number] Jan, [facility] [address] [id number] [place] [id number] Dec, [facility] [address] [id number] [place] [id number] Dec, [facility] [address] [facility] [id number], [place] [address] Nov, [facility] [address] [facility] [id number], [place] [address] Nov, [facility] [address] [id number] [place] [id number] Oct, [facility] [address] [id number] [place] [id number] Oct, [facility] [address] [id number] [place] [id number] Sep, [facility] [address] [facility] [id number], [place] [address] Sep, [facility] [address] [id number][place] [id number] Aug, [facility] [address] [facility] [id number], [place] [address] Aug, [facility] [address] [facility] [id number], [place] [address] May, [facility] [address] [id number][place] [id number] May, [facility] [address] [id number][place] [id number] May, [facility] [address] [facility] [id number], [place] [address] Apr, [facility] [address] [id number] [place] [id number] Apr, [facility] [address] [id number] [place] [id number] Apr, [facility] [address] [id number] [place] [id number] Apr, [facility] [address] [id number] [place] [id number] Mar, [facility] [address] [id number] [place] [id number] Mar, [facility] [address] [facility] [id number], [place] [address] Mar, [facility] [address] [facility] [id number], [place] [address] February, [facility] [address] [id number] [place] [id number] February, [facility] [address] [id number] [place] [id number] February, [facility] [address] [id number] [place] [id number] Dec, [facility] [address] [id number] [place] [id number] Dec, [facility] [address] [id number] [place] [id number] Dec, [facility] [address] [id number] [place] [id number] Dec, [facility] [address] [id number] [place] [id number] Dec, [facility] [address] [id number] [place] [id number] Dec, [facility] [address] [id number] [place] [id number] Dec, [facility] [address] [id number] [place] [id number] Nov, [facility] [address] [facility] [id number], [place] [address] Nov, [facility] [address] [id number] [place] [id number] Nov, [facility] [address] [id number] [place] [id number] Oct, [facility] [address] [id number], [place] [address] Oct, [facility] [address] [id number] [place] [id number] Oct, [facility] [address] [facility] [id number], [place] [address] Oct, [facility] [address] [id number], [place] [address] Sep, [facility] [address] [facility] [id number][place] [address] Sep, [facility] [id number], [place] [address] Sep, [facility] [address] [facility] [id number], [place] [address] Aug, [facility] [id number], [place] [address] Jul, [facility] [id number], [place] [address] Jul, [facility] [address] [id number], [place] [address] February, [facility] [address] [id number], [place] [address] Jan, IMMUNIZATIONS No Known Immunizations SOCIAL HISTORY Never Assessed REASON FOR VISIT Refill request PLAN OF CARE VITAL SIGNS MEDICATIONS Medication Instructions Dosage Frequency Start Date End Date Duration Status Cymbalta 30 MG Orally Twice a day 1 capsule 12h Sep, 0 days Active RESULTS No Results [...] by son 11/2016 Hospitalization History [facility] for headache 05/28/17
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
[2018-07-24 06:15] VITALS: BP 122/76
[2018-07-24] MEDS ORDERED: ceFAZolin INJECTION 1,000 MG in NS (IVPB) 50 ML IV ONE (06:15)
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
--- OUTSIDE RECORDS SUMMARY | 2018-07-24 06:18 | XMS REPORT ---
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 Active 72538190 Problem Carpal tunnel syndrome of right wrist G56.01 Active 81961940 Problem Hyperlipemia E78.5 Active 91454770 Problem BMI 50.0-59.9, adult Z68.43 Active 424157221 Problem Morbid obesity E66.01 Active 177356872 Problem Controlled type 2 diabetes mellitus without complication, without long -term current use of insulin E11.9 Active 261968419 Problem Intractable migraine with aura without status migrainosus G43.119 Active 419513884 Problem Acne rosacea L71.9 Active 927704370 Problem Neuropathic arthropathy M14.60 Active 66005206 Problem GERD (gastroesophageal reflux disease) K21.9 Active 061984978 Problem Metabolic syndrome E88.81 Active 237542303 Problem Depression with anxiety F41.8 Active 896154873 Problem Chronic pain G89.29 Active 84835737 Problem Anxiety associated with depression F41.8 Active 187113324 Problem Myalgia M79.1 Active 32273940 Problem Headache R51 Active 13771011 Problem Lumbago with sciatica, left side M54.42 Active 536786468 Problem Neck pain M54.2 Active 54940081 Problem Plantar fasciitis M72.2 Active 709033797 ALLERGIES Substance Reaction Event Type Date Status Gabapentin headache Drug Allergy Sep, Active ENCOUNTERS Encounter Location Date Diagnosis [facility] [address] [facility] [id number] [id number] Mar, Neuropathic arthropathy M14.60 ; GERD (gastroesophageal reflux disease) K21.9 and Controlled type 2 diabetes mellitus without complication, without long -term current use of insulin E11.9 [facility] [id number], [place] [id number] February, Neuropathic arthropathy M14.60 [facility] [id number] [place] [address] [id number] February, Neuropathic arthropathy M14.60 ; Spinal stenosis of lumbar region M48.06 and BMI 50.0-59.9, adult Z68.43 [facility] [id number] [place] [address] [id number] February, BMI 50.0-59.9, adult Z68.43 [facility] [id number] [place] [address] [id number] February, Radiculopathy of lumbar region M54.16 [place] [id number] [place] [address] [id number] February, Radiculopathy of lumbar region M54.16 and Infective urethritis N34.2 [facility] [id number] [place] [address] [id number] Jan, Neuropathic arthropathy M14.60 [facility] [id number][place] [id number] Jan, BMI 50.0-59.9, adult Z68.43 ; Controlled type 2 diabetes mellitus without complication, without long-term current use of insulin E11.9 and Neuropathic arthropathy M14.60 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 [id number] [place] [address] [id number] Nov, Skin tag L91.8 and BMI 50.0-59.9, adult Z68.43 [facility] [address]005[address]100[place] [address] Oct, Neuropathic arthropathy M14.60 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 and Morbid obesity E66.01 [facility] [address] [id number] [id number] Aug, [address] [place] [address] [id number] Jul, Morbid obesity E66.01 [facility] [id number] [place] [address] 33079215- 7120 Jul, Morbid obesity E66.01 [place] [id number] [place] [address] [id number] Jul, Morbid obesity E66.01 ; Encounter for immunization Z23 ; Insect bite ( nonvenomous), left ankle, initial encounter S90.562A ; Bitten or stung by nonvenomous insect and other nonvenomous arthropods, initial encounter W57.XXXA and Acute cystitis without hematuria N30.00 [place] [id number] [place] [address] [id number] Jun, GERD (gastroesophageal reflux disease) K21.9 [place] [id number] [place] [address] [id number] Jun, [place] [id number] [place] [address] [id number] Jun, Morbid obesity E66.01 [address] [place] [address] [id number] May, [place] [id number] [place] [address] [id number] May, [address] [place] [address] [id number] May, Intractable migraine with aura without status migrainosus G43.119 and Vertigo R42 [facility] [address]00565100[place], [place] [address] Apr, [place] [id number] [place] [address] [id number] Apr, Radiculopathy of lumbar region M54.16 ; 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 [id number] [place] [address] [id number] February, [facility] [id number] [place] [address] [id number] February, Spinal stenosis of lumbar region M48.06 and Anxiety associated with depression F41.8 [facility] [id number] [place] [address] [id number] February, Anxiety associated with depression F41.8 [facility] [id number] [place] [address] [id number] February, Low back pain M54.5 [facility] [id number] [place] [address] [id number] February, Low back pain M54.5 and Myalgia M79.1 [facility] [id number] [place] [address] [id number] Jan, [facility] [id number] [place] [address] [id number] Jan, Anxiety associated with depression F41.8 [facility] [address]00565100[place], [place] [address] Jan, [address] [id number][place] [id number] Jan, Metabolic syndrome E88.81 [facility] [address]00565100[place], [place] [id number] Jan, Lumbago with sciatica, left side M54.42 and Plantar fasciitis M72.2 [facility] [id number] [place] [address] 5870 Dec, [facility] [id number] [place] [address] [id number] Dec, Myalgia M79.1 and Anxiety associated with depression F41.8 [facility] [id number] [place] [address] [id number] Nov, Myalgia M79.[address] [id number], [place] [id number] Aug, [address]00565100[place] [id number] Aug, Upper respiratory tract infection, unspecified type J06.9 ; Encounter for immunization Z23 and Tinea pedis of left foot B35.3 [place] [address]00565100[place], [place] [address] 9[address] Aug, [place] [address] [place] [address] 284603- 3429 Jul, Dental examination Z01.20 [address]00565100[place], [place] [id number] Apr, Anxiety associated with depression F41.8 [address]00565100[place] [id number] Apr, Depression with anxiety F41.8 ; Morbid obesity E66.01 ; GERD ( gastroesophageal reflux disease) K21.9 ; Metabolic syndrome E88.81 and Headache R51 [address] [id number], [place] [id number] Apr, [facility] [address] [id number][place] [id number] Apr, Carpal tunnel syndrome of left wrist G56.02 and Muscle spasm M62.838 [place] [address]00565100[place], [place] [address]- 7[address] Mar, Carpal tunnel syndrome of left wrist G56.[address] [id number], [place] [id number] Mar, Left elbow pain M25.522 [place] [address]00565100[place], [place] [address] February, Dental examination Z01.[address] [place] [address] [id number] February, Acute pain of left shoulder M25.512 ; Left elbow pain M25.522 ; Renal insufficiency N28.9 and Metabolic syndrome E88.81 [address]00565100[place], [place] [id number] February, [address] [id number], [place] [id number] February, Neck pain M54.2 ; Metabolic syndrome E88.81 ; Morbid obesity E66.01 ; Bilateral headaches R51 and Dizziness R42 [address] [id number], [place] [id number] Oct, Dizziness R42 and History of panic attacks Z86.59 [place] [id number] [place] [address] [id number] Oct, Neck pain M54.2 ; Metabolic syndrome E88.81 ; Headache R51 and Diarrhea R19.[address]00565100[place], [place] [id number] Oct, [place] [id number] [id number] Oct, Diarrhea R19.7 ; Dehydration E86.0 and Headache R51 [address]00565100[place], [place] [id number] Sep, Metabolic syndrome E88.81 ; GERD (gastroesophageal reflux disease ) K21.9 ; Diarrhea R19.7 ; Dehydration E86.0 and Hyperlipemia E78.[address] [id number], [place] [id number] Aug, [id number] [place] [address] [id number] Aug, Morbid obesity E66.01 ; Viral syndrome B34.9 ; Hyperlipemia E78.5 ; Chronic pain G89.29 ; Exercise counseling Z71.89 ; Cough R05 ; Depression with anxiety F41.8 ; Dietary counseling Z71.3 ; Fever blister B00.1 and GERD ( gastroesophageal reflux disease) K21.[address] [id number], [place] [id number] 10 Aug, 2015 Viral syndrome B34.9 ; Cough R05 and Fever blister B00.1 [facility] [address] [facility] [id number][place] [id number] Aug, Morbid obesity E66.01 ; Exercise counseling Z71.89 ; Dietary counseling Z71.3 ; Hyperlipemia E78.5 ; Chronic pain G89.29 ; Depression with anxiety F41.8 and GERD (gastroesophageal reflux disease) K21.[id number] [place] [address] [id number] 14 Jun, 2015 Contact dermatitis 692.9 [place] [id number] [place] [address] [id number] 10 Jun, 2015 GERD (gastroesophageal reflux disease) 530.81 and Hyperlipidemia 272.4 [place] [id number] [place] [address] [id number] May, Hyperlipidemia 272.4 and Headache 784.0 [address] [place] [address] [id number] Mar, [place] [id number] [place] [address] [id number] Mar, Asthma 493.90 [address] [place] [address] [id number] Mar, [address] [place] [address] [id number] February, Suspicious nevus 238.2 [place] [id number] [place] [address] [id number] February, Depression 311 and Hyperlipidemia 272.4 [place] [id number] [place] [address] [id number] February, [place] [id number] [place] [address] [id number] February, Anxiety state 300.00 ; Screening for lipid disorders V77.91 ; Screening for hypothyroidism V77.0 and Depressive disorder, not elsewhere classified [address] [place] [id number] [place] [address] [id number] Jan, Anxiety state, unspecified 300.00 ; Depression 311 and Headache 784.0 [facility] [id number], [place] [id number] Jan, [facility] [place] [facility] [id number] [place] [address] 096[address]- 4213 Jan, [facility] [place] [facility] [address] [id number], [place] [address]- 1546 Jan, [facility] [place] [facility] [id number] [place] [address] 49505- 4296 Nov, [facility] [id number], [place] [id number] Nov, [facility] [id number] [place] [address] [id number] Nov, [facility] [place] [facility] [address]00565100[place], [place] [address]- 59[address] Nov, [facility] [id number], [place] [id number] Nov, [facility] [facility] [address]00565100[place], [place] [address]- 5136 Nov, [facility] [id number] [place] [address] [id number] Oct, [facility] [place] [facility] [address]00565100[place], [place] [address]- 6746 Oct, [facility] [id number], [place] [id number] Sep, [facility] [place] [facility] [address]00565100[place], [place] [address]- 3946 Sep, [facility] [id number], [place] [id number] Jul, [facility] [place] [facility] [address]00565100[place], [place] [address]- 2546 Jul, [facility] [address] [id number], [place] [id number] Jul, [facility] [place] [facility] [address] [facility] [id number] [place] [address]- 9946 Jul, [facility] [place] [facility] [address] [facility] [id number] [place] [address]- 1226 Jul, [facility] [address] [id number] [place] [id number] Jul, [facility] [address] [facility] [id number] [place] [id number] Jul, [facility] [place] [facility] [address] [facility] [id number] [place] [address] 2546 Jul, [facility] [address] [facility] [id number] [place] [id number] Jun, [facility] [place] [facility] [address] [facility] [id number] [place] [address] 2546 Jun, [facility] [address] [facility] [id number], [place] 236352354 May, [facility] [place] [facility] [address] [facility] [id number], [place] [address]- 5739 May, [facility] [place] [facility] [address] [facility] [id number], [place] [address]- 3301 Apr, [facility] [address] [facility] [id number], [place] [id number] Apr, [facility] [place] [facility] [address] [facility] [id number], [place] [address]- 3915 Apr, [facility] [address] [facility] [id number], [place] [id number] Mar, [facility] [place] [facility] [address] [facility] [id number] [place] [address] 2546 Mar, [facility] [address] [facility] [id number] [place] [id number] Mar, [facility] [address] [facility] [id number] [place] [id number] Mar, [facility] [place] [facility] [address] [facility] [id number], [place] [address] 2544 Mar, [facility] [place] [facility] [address] [facility] [id number] [place] [address]- 2546 Mar, [facility] [address] [facility] [id number] [place] [id number] February, [facility] [place] [facility] [address] [facility] [id number] [place] [address]- 2546 February, [facility] [address] [facility] [id number] [place] [id number] February, [facility] [place] [facility] [address] [facility] [id number] [place] [address]- 2546 February, [facility] [address] [facility] [id number] [place] [id number] Jan, [facility] [place] [facility] [address] [facility] [id number] [place] [address]- 2546 Jan, [facility] [address] [facility] [id number] [place] [id number] Dec, [facility] [place] [facility] [address] [place] [address] [id number] [place] [address]- 8836 Dec, [facility] [address] [facility] [id number] [place] [id number] Dec, [facility] [place] [facility] [address]100[place], [place] [address]- 2546 Dec, [facility] [address] [id number] [place] [id number] Dec, [facility] [address] [facility] [id number], [place] [id number] Dec, [facility] [place] [facility] [address] [facility] [id number] [place] [address]- 2546 Dec, [facility] [place] [facility] [address] [facility] [id number] [place] [address]- 2546 Dec, [facility] [address] [facility] [id number], [place] [id number] Nov, [facility] [place] [facility] [address] [facility] [id number] [place] [address]- 2866 Nov, [facility] [address] [facility] [id number], [place] [id number] Oct, [facility] [place] [facility] [address] [facility] [id number] [place] [address]- 2546 Oct, [facility] [place] [facility] [address] [facility] [id number], [place] [address]- 2546 Sep, [facility] [place] [facility] [address] [facility] [id number], [place] [address]- 2546 Sep, [facility] [address] [facility] [id number], [place] 609905964 Sep, [facility] [place] [facility] [address] [facility] [id number] [place] [address]- 2546 Sep, [facility] [address] [facility] [id number], [place] 813822643 Aug, [facility] [place] [facility] [address] [place] [address] [id number], [place] [address] 2546 Aug, [facility] [place] [facility] [address] [facility] [id number], [place] [address]- 7156 Jul, [facility] [place] [facility] [address] [facility] [id number], [place] [address]- 2266 Jul, [facility] [place] [facility] [address] [facility] [id number], [place] [address]- 8356 Jul, [facility] [address] [facility] [id number], [place] [id number] Jul, [facility] [place] [facility] [address] [id number], [place] [address]- 2546 Jul, [facility] [place] [facility] [address] [facility] [id number], [place] [address]- 6116 Jul, [facility] [place] [facility] [address] [facility] [id number], [place] [address]- 2546 Jul, [facility] [address] [facility] [id number], [place] 819262955 Jul, [facility] [place] [facility] [address] [facility] [id number], [place] [address]- 8823 Jul, [facility] [address] [id number] [place] [id number] Jun, [facility] [address] [id number] [place] [id number] May, [facility] [address] [facility] [id number], [place] [address]- 6066 May, [facility] [address] [facility] [id number], [place] [address]- 4403 May, [facility] [address] [facility] [id number], [place] [address]- 4192 May, [facility] [address] [facility] [id number], [place] [address]- 7355 May, [facility] [address] [id number][place] [id number] May, [facility] [address] [id number][place] [id number] May, [facility] [address] [id number] [place] [id number] Apr, [facility] [address] [facility] [id number], [place] [address] Mar, [facility] [address] [id number] [place] [id number] Mar, [facility] [address] [id number] [place] [id number] February, [facility] [address] [facility] [id number], [place] [address] February, [facility] [address] [id number] [place] [id number] February, [facility] [address] [id number] [place] [id number] Jan, [facility] [address] [id number] [place] [id number] Jan, [facility] [address] [id number] [place] [id number] Dec, [facility] [address] [id number] [place] [id number] Dec, [facility] [place] [facility] [address] [facility] [id number] [place] [address] Nov, [facility] [place] [facility] [address] [facility] [id number] [place] [address] Nov, [facility] [address] [id number] [place] [id number] Oct, [facility] [address] [id number] [place] [id number] Oct, [facility] [address] [id number] [place] [id number] Sep, [facility] [place] [facility] [id number], [place] [address] Sep, [facility] [address] [id number] [place] [id number] Aug, [facility] [place] [facility] [address] [facility] [id number], [place] [address] Aug, [facility] [place] [facility] [address] [id number] [place] [address] May, [facility] [address] [id number][place] [id number] May, [facility] [address] [id number] [place] [id number] May, [facility] [place] [facility] [address] [facility] [id number], [place] [address] Apr, [facility] [address] [id number] [place] [id number] Apr, [facility] [address] [id number] [place] [id number] Apr, [facility] [address] [id number] [place] [id number] Apr, [facility] [address] [id number] [place] [id number] Mar, [facility] [address] [id number] [place] [id number] Mar, [facility] [address] [facility] [id number], [place] [address] Mar, [facility] [address] [facility] [id number], [place] [address] February, [facility] [address] [id number] [place] [id number] February, [facility] [address] [id number] [place] [id number] February, [facility] [address] [id number] [place], [place] [id number] Dec, [facility] [address] [id number] [place] [id number] Dec, [facility] [address] [id number] [place] [id number] Dec, [facility] [address] [id number] [place] [id number] Dec, [facility] [address] [id number] [place] [id number] Dec, [facility] [address] [id number] [place] [id number] Dec, [facility] [address] [id number] [id number] Dec, [facility] [address] [id number] [place] [id number] Nov, [facility] [address] [facility] [id number], [place] [address] Nov, [facility] [address] [id number][place] [id number] Nov, [facility] [address] [id number][place] [id number] Oct, [facility] [address] [facility] [id number], [place] [address] Oct, [facility] [address] [id number][place] [id number] Oct, [facility] [id number], [place] [address] Oct, [facility] [id number], [place] [address] Sep, [facility] [id number], [place] [address] Sep, [facility] [id number], [place] [address] Sep, [facility] [id number], [place] [address] Aug, [facility] [id number], [place] [address] Jul, [facility] [id number], [place] [address] Jul, [facility] [id number], [place] [address] February, [facility] [id number] [address] Jan, IMMUNIZATIONS No Known Immunizations SOCIAL HISTORY Never Assessed REASON FOR VISIT Diabetes follow up, paige Eaton RN PLAN OF CARE Activity Details Follow Up 4 Weeks Reason:chronic pain VITAL SIGNS Height 68 in 2017-09-24 Weight 359.2 lbs 2017-09-24 Temperature 98.1 degrees Fahrenheit 2017-09-24 Heart Rate 60 bpm 2017-09-24 Respiratory Rate 18 2017-09-24 BMI 54.61 kg/m2 2017-09-24 Blood pressure systolic 118 mmHg 2017-09-24 Blood pressure diastolic 68 mmHg 2017-09-24 MEDICATIONS Medication Instructions Dosage Frequency Start Date End Date Duration Status Omeprazole 40 mg Orally Once a day 1 capsule 24h 0 days Active Venlafaxine HCl 100 mg Orally twice a day 1 tablet with food 12h 0 Active Trazodone HCl 50 mg Orally Once a day .5-1 tablet at bedtime as needed 24h Active MetFORMIN HCl ER (MOD) 500 mg Orally Once a day at night 1tablets Sep Active Prelief 340 (65-50) MG (CA-P) 2 tablets Sep, Active Cyclobenzaprine HCl 10MG TAKE ONE-HALF TABLET BY MOUTH TWICE DAILY Active Ibuprofen 800 MG Orally Three times a day 1 tablet with food or milk as needed 8h Sep, Active Tramadol HCl 50 mg Orally 2 times a day 1 tablet as needed 12h Sep, Active Bydureon 2 MG Inject Sep, 1 dose Active RESULTS Name Result Date Reference Range A1C (IN HOUSE) 2017-09-24 A1C IN HOUSE 5.6 4.3 - 5.6 % Previous A1c 5.8 Lot [id number] Exp date 06/08 UA LONG DIP (IN HOUSE) 2017-09-24 Lot # [id number] Exp date 08/07 Clarity cloudy Color yellow Odor yes GLU neg TREMAYNE neg KET neg SG 1.025 BLO neg pH 5.0 Protein neg URO 0.2 NIT neg NEGRA 1+ Lot # Exp date PROCEDURES Procedure Date Ordered Result Body Site GLYCATED HEMOGLOBIN TEST Sep 24, 2017 URINALYSIS, AUTO, W/O SCOPE Sep 24, 2017 INSTRUCTIONS MEDICATIONS ADMINISTERED No Known Medications [...] by son 11/[address] [facility] for headache 05/28/17
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
--- OUTSIDE RECORDS SUMMARY | 2018-07-24 06:23 | XMS REPORT | Continuity of Care Document ---
Author Author [facility] Address Unknown Phone Unavailable Allergies Active Description Code Type Severity Reaction Onset Reported/Identified Relationship to Patient Clinical Status Yes No Known Drug Allergies [id number] Drug Allergy Unknown N/A 02/19/2018 Medications There is no data. Problems Date Dx Coded Attending Type Code Diagnosis Diagnosed By 02/06/2010 VERONICA INIGUEZ APRN 311 DEPRESSIVE DISORDER, [...] MEDICATION HIGH RISK 02/06/2010 VERONICA INIGUEZ APRN R 311 DEPRESSIVE DISORDER, NOT ELSEWHERE CLASSIFIED 02/06/2010 VERONICA INIGUEZ APRN R V58.69 MEDICATION HIGH RISK 02/06/2010 ROVERTO BOLANOS APRN E 311 DEPRESSIVE DISORDER, NOT ELSEWHERE CLASSIFIED 02/06/2010 LUIS MIGUEL CABAN ROVERTO E V58.69 MEDICATION HIGH RISK 02/06/2010 KAYE DO, KELLY K 311 DEPRESSIVE DISORDER, NOT ELSEWHERE CLASSIFIED 02/06/2010 KAYE DO, KELLY K V58.69 MEDICATION HIGH RISK 01/24/2011 VERONICA INIGUEZ APRN R 458.0 ORTHOSTATIC HYPOTENSION 01/24/2011 VERONICA INIGUEZ APRN R 780.2 SYNCOPE AND COLLAPSE 01/24/2011 458.0 ORTHOSTATIC HYPOTENSION 01/24/2011 780.2 SYNCOPE AND COLLAPSE 01/24/2011 458.0 ORTHOSTATIC HYPOTENSION 01/24/2011 780.2 SYNCOPE AND COLLAPSE 01/24/2011 HIRA CABANVERONICA 458.0 ORTHOSTATIC HYPOTENSION 01/24/2011 INIGUEZNANCY COBBVERONICA Berumen 780.2 SYNCOPE AND COLLAPSE 01/24/2011 458.0 ORTHOSTATIC [...] INIGUEZ APRN 780.2 SYNCOPE AND COLLAPSE 01/24/2011 HELLWIG PROSTHETIST, ROVERTO E 458.0 ORTHOSTATIC HYPOTENSION 01/24/2011 HELLWIG PROSTHETIST, ROVERTO E 780.2 SYNCOPE AND COLLAPSE 01/24/2011 KAYE DO, KELLY K 458.0 ORTHOSTATIC HYPOTENSION 01/24/2011 KAEY DO, KELLY K 780.2 SYNCOPE AND COLLAPSE 04/24/2011 VERONICA INIGUEZ APRN 278.00 OBESITY UNSPECIFIED 04/24/2011 VERONICA INIGUEZ APRN 287.5 THROMBOCYTOPENIA 04/24/2011 VERONICA INIGUEZ APRN V72.31 DEEP SEA DIVER EXAM, ROUTINE 04/24/2011 VERONICA INIGUEZ APRN V77.1 SCREENING FOR DIABETES MELLITUS 04/24/2011 VERONICA INIGUEZ APRN V77.91 SCREENING FOR LIPOID DISORDERS 04/24/2011 278.00 OBESITY UNSPECIFIED 04/24/2011 287.5 THROMBOCYTOPENIA 04/24/2011 V72.31 DEEP SEA DIVER EXAM, ROUTINE 04/24/2011 V77.1 SCREENING FOR DIABETES MELLITUS 04/24/2011 V77.91 SCREENING FOR LIPOID DISORDERS 04/24/2011 278.00 OBESITY UNSPECIFIED 04/24/2011 287.5 THROMBOCYTOPENIA 04/24/2011 V72.31 DEEP SEA DIVER EXAM, ROUTINE 04/24/2011 V77.1 SCREENING FOR DIABETES MELLITUS 04/24/2011 V77.91 SCREENING FOR LIPOID DISORDERS 04/24/2011 VERONICA INIGUEZ APRN 278.00 OBESITY UNSPECIFIED 04/24/2011 VERONICA INIGUEZ APRN 287.5 THROMBOCYTOPENIA 04/24/2011 VERONICA INIGUEZ APRN V72.31 DEEP SEA DIVER EXAM, ROUTINE 04/24/2011 VERONICA INIGUEZ APRN V77.1 SCREENING FOR DIABETES MELLITUS 04/24/2011 VERONICA INIGUEZ APRN V77.91 SCREENING FOR LIPOID DISORDERS 04/24/2011 278.00 OBESITY UNSPECIFIED 04/24/2011 287.5 THROMBOCYTOPENIA 04/24/2011 V72.31 DEEP SEA DIVER EXAM, ROUTINE 04/24/2011 V77.1 SCREENING FOR DIABETES MELLITUS 04/24/2011 V77.91 SCREENING FOR LIPOID DISORDERS 04/24/2011 278.00 OBESITY UNSPECIFIED 04/24/2011 287.5 THROMBOCYTOPENIA 04/24/2011 V72.31 DEEP SEA DIVER EXAM, ROUTINE 04/24/2011 V77.1 SCREENING FOR DIABETES MELLITUS 04/24/2011 V77.91 SCREENING FOR LIPOID DISORDERS 04/24/2011 278.00 OBESITY UNSPECIFIED 04/24/2011 287.5 THROMBOCYTOPENIA 04/24/2011 V72.31 DEEP SEA DIVER EXAM, ROUTINE 04/24/2011 V77.1 SCREENING FOR DIABETES MELLITUS 04/24/2011 V77.91 SCREENING FOR LIPOID DISORDERS 04/24/2011 278.00 OBESITY UNSPECIFIED 04/24/2011 287.5 THROMBOCYTOPENIA 04/24/2011 V72.31 DEEP SEA DIVER EXAM, ROUTINE 04/24/2011 V77.1 SCREENING FOR DIABETES MELLITUS 04/24/2011 V77.91 SCREENING FOR LIPOID DISORDERS 04/24/2011 278.00 OBESITY UNSPECIFIED 04/24/2011 287.5 THROMBOCYTOPENIA 04/24/2011 V72.31 DEEP SEA DIVER EXAM, ROUTINE 04/24/2011 V77.1 SCREENING FOR DIABETES MELLITUS 04/24/2011 V77.91 SCREENING FOR LIPOID DISORDERS 04/24/2011 278.00 OBESITY UNSPECIFIED 04/24/2011 287.5 THROMBOCYTOPENIA 04/24/2011 V72.31 DEEP SEA DIVER EXAM, ROUTINE 04/24/2011 V77.1 SCREENING FOR DIABETES MELLITUS 04/24/2011 V77.91 SCREENING FOR LIPOID DISORDERS 04/24/2011 KAYE DO, KELLY K 278.00 OBESITY UNSPECIFIED 04/24/2011 KAYE DO, KELLY K 287.5 THROMBOCYTOPENIA 04/24/2011 KAYE DO, KELLY K V72.31 DEEP SEA DIVER EXAM, ROUTINE 04/24/2011 KAYE DO, KELLY K V77.1 SCREENING FOR DIABETES MELLITUS 04/24/2011 KAYE DO, KELLY K V77.91 SCREENING FOR LIPOID DISORDERS 04/24/2011 KAYE DO, KELLY K 278.00 OBESITY UNSPECIFIED 04/24/2011 KAYE DO, KELLY K 287.5 THROMBOCYTOPENIA 04/24/2011 KAYE DO, KELLY K V72.31 DEEP SEA DIVER EXAM, ROUTINE 04/24/2011 KAYE DO, KELLY K V77.1 SCREENING FOR DIABETES MELLITUS 04/24/2011 KAYE DO, KELLY K V77.91 SCREENING FOR LIPOID DISORDERS 04/24/2011 KAYE DO, KELLY K 278.00 OBESITY UNSPECIFIED 04/24/2011 KAYE DO, KELLY K 287.5 THROMBOCYTOPENIA 04/24/2011 KAYE DO, KELLY K V72.31 DEEP SEA DIVER EXAM, ROUTINE 04/24/2011 KAYE DO, KELLY K V77.1 SCREENING FOR DIABETES MELLITUS 04/24/2011 KAYE DO, KELLY K V77.91 SCREENING FOR LIPOID DISORDERS 04/24/2011 278.00 OBESITY UNSPECIFIED 04/24/2011 287.5 THROMBOCYTOPENIA 04/24/2011 V72.31 DEEP SEA DIVER EXAM, ROUTINE 04/24/2011 V77.1 SCREENING FOR DIABETES MELLITUS 04/24/2011 V77.91 SCREENING FOR LIPOID DISORDERS 04/24/2011 KAYE DO, KELLY K 278.00 OBESITY UNSPECIFIED 04/24/2011 KAYE DO, KELLY K 287.5 THROMBOCYTOPENIA 04/24/2011 KAYE DO, KELLY K V72.31 DEEP SEA DIVER EXAM, ROUTINE 04/24/2011 KAYE DO, KELLY K V77.1 SCREENING FOR DIABETES MELLITUS 04/24/2011 KAYE DO, KELLY K V77.91 SCREENING FOR LIPOID DISORDERS 04/24/2011 KAYE DO, KELLY K 278.00 OBESITY UNSPECIFIED 04/24/2011 KAYE DO, KELLY K 287.5 THROMBOCYTOPENIA 04/24/2011 KAYE DO, KELLY K V72.31 DEEP SEA DIVER EXAM, ROUTINE 04/24/2011 KAYE DO, KELLY K V77.1 SCREENING FOR DIABETES MELLITUS 04/24/2011 KAYE DO, KELLY K V77.91 SCREENING FOR LIPOID DISORDERS 04/24/2011 KAYE DO, KELLY K 278.00 OBESITY UNSPECIFIED 04/24/2011 KAYE DO, KELLY K 287.5 THROMBOCYTOPENIA 04/24/2011 KAYE DO, KELLY K V72.31 DEEP SEA DIVER EXAM, ROUTINE 04/24/2011 KAYE DO, KELLY K V77.1 SCREENING FOR DIABETES MELLITUS 04/24/2011 KAYE DO, KELLY K V77.91 SCREENING FOR LIPOID DISORDERS 04/24/2011 KAYE DO, KELLY K 278.00 OBESITY UNSPECIFIED 04/24/2011 KAYE DO, KELLY K 287.5 THROMBOCYTOPENIA 04/24/2011 KAYE DO, KELLY K V72.31 DEEP SEA DIVER EXAM, ROUTINE 04/24/2011 KAYE DO, KELLY K V77.1 SCREENING FOR DIABETES MELLITUS 04/24/2011 KAYE DO, KELLY K V77.91 SCREENING FOR LIPOID DISORDERS 04/24/2011 KAYE DO, KELLY K 278.00 OBESITY UNSPECIFIED 04/24/2011 KAYE DO, KELLY K 287.5 THROMBOCYTOPENIA 04/24/2011 KAYE DO, KELLY K V72.31 DEEP SEA DIVER EXAM, ROUTINE 04/24/2011 KAYE DO, KELLY K V77.1 SCREENING FOR DIABETES MELLITUS 04/24/2011 KAYE DO, KELLY K V77.91 SCREENING FOR LIPOID DISORDERS 04/24/2011 KAYE DO, KELLY K 278.00 OBESITY UNSPECIFIED 04/24/2011 KAYE DO, KELLY K 287.5 THROMBOCYTOPENIA 04/24/2011 KAYE DO, KELLY K V72.31 DEEP SEA DIVER EXAM, ROUTINE 04/24/2011 KAYE DO, KELLY K V77.1 SCREENING FOR DIABETES MELLITUS 04/24/2011 KAYE DO, KELLY K V77.91 SCREENING FOR LIPOID DISORDERS 04/24/2011 KAYE DO, KELLY K 278.00 OBESITY UNSPECIFIED 04/24/2011 KAYE DO, KELLY K 287.5 THROMBOCYTOPENIA 04/24/2011 KAYE DO, KELLY K V72.31 DEEP SEA DIVER EXAM, ROUTINE 04/24/2011 KAYE DO, KELLY K V77.1 SCREENING FOR DIABETES MELLITUS 04/24/2011 KAYE DO, KELLY K V77.91 SCREENING FOR LIPOID DISORDERS 04/24/2011 VERONICA INIGUEZ APRN 278.00 OBESITY UNSPECIFIED 04/24/2011 VERONICA INIGUEZ APRN R 287.5 THROMBOCYTOPENIA 04/24/2011 VERONICA INIGUEZ APRN V72.31 DEEP SEA DIVER EXAM, ROUTINE 04/24/2011 VERONICA INIGUEZ APRN V77.1 SCREENING FOR DIABETES MELLITUS 04/24/2011 VERONICA INIGUEZ APRN V77.91 SCREENING FOR LIPOID DISORDERS 04/24/2011 ROVERTO BOLANOS APRN E 278.00 OBESITY UNSPECIFIED 04/24/2011 ROVERTO BOLANOS APRN E 287.5 THROMBOCYTOPENIA 04/24/2011 ROVERTO BOLANOS APRN E V72.31 DEEP SEA DIVER EXAM, ROUTINE 04/24/2011 ROVERTO BOLANOS APRN E V77.1 SCREENING FOR DIABETES MELLITUS 04/24/2011 ROVERTO BOLANOS APRN E V77.91 SCREENING FOR LIPOID DISORDERS 04/24/2011 KAYE DO, KELLY K 278.00 OBESITY UNSPECIFIED 04/24/2011 KAYE DO, KELLY K 287.5 THROMBOCYTOPENIA 04/24/2011 KAYE DO, KELLY K V72.31 DEEP SEA DIVER EXAM, ROUTINE 04/24/2011 KAYE DO, KELLY K [...] 465.9 UPPER RESPIRATORY INFECTION 09/26/2011 KAYE DO, EKLLY K 465.9 UPPER RESPIRATORY INFECTION 09/26/2011 KAYE [...] CONGENITAL HEART DEFECT 09/27/2011 ROVERTO BOLANOS APRN 354.0 CARPAL TUNNEL SYNDROME 09/27/2011 ROVERTO BOLANOS APRN 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 09/27/2011 KAYE DO, KELLY K 354.0 CARPAL TUNNEL SYNDROME 09/27/2011 VARGAS LAWS KELLY K 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 11/09/2011 [...] KAYE DO, KELLY K 787.91 diarrhea 03/18/2012 VERONICA INIGUEZ APRN 787.91 diarrhea 03/18/2012 ROVERTO BOLANOS APRN 787.91 [...] VERONICA INIGUEZ APRN 788.31 URGE INCONTINENCE 04/10/2012 ROVERTO BOLANOS APRN E 300.00 ANXIETY STATE UNSPECIFIED 04/10/2012 [...] 04/28/2012 V76.10 BREAST CANCER SCREENING 04/28/2012 KAYE DO KELLY K 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 04/28/2012 KAYE DO KELLY K V76.10 BREAST CANCER SCREENING 04/28/2012 KAYE DO, KELLY K 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 04/28/2012 KAYE DO KELLY K V76.10 BREAST CANCER SCREENING 04/28/2012 KAYE DO KELLY K 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 04/28/2012 KAYE DO, KELLY K V76.10 BREAST CANCER SCREENING 04/28/2012 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 04/28/2012 V76.10 BREAST CANCER SCREENING 04/28/2012 KAYE DO KELLY K 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 04/28/2012 KAYE DO, KELLY K V76.10 BREAST CANCER SCREENING 04/28/2012 KAYE DO KELLY K 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 04/28/2012 KAYE DO KELLY K V76.10 BREAST CANCER SCREENING 04/28/2012 KAYE DO KELLY K 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 04/28/2012 KAYE DO, KELLY K V76.10 BREAST CANCER SCREENING 04/28/2012 KAYE DO, KELLY K 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 04/28/2012 KAYE DO, KELLY K V76.10 BREAST CANCER SCREENING 04/28/2012 KAYE DO KELLY K 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 04/28/2012 KAYE DO, KELLY K V76.10 BREAST CANCER SCREENING 04/28/2012 KAYE DO, KELLY K 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.] 11/29/2012 VERONICA INIGUEZ APRN 784.0 headache 11/29/2012 ROVERTO BOLANOS APRN 784.0 headache 11/29/2012 KAYE DO, KELLY K [...] VERONICA Baxter 724.2 BACK PAIN, LOWER 03/09/2013 HELLCASSIDY COBBNROVERTO E 719.43 PAIN- WRIST 03/09/2013 HELLWIG PROSTHETIST, ROVERTO E 724.2 BACK PAIN, LOWER 03/09/2013 KAYE DO, [...] K 789.00 ABDOMINAL PAIN UNSPECIFIED SITE 06/08/2013 AKYE DO, KELLY K 789.00 ABDOMINAL PAIN UNSPECIFIED [...] DO, KELLY K 466.0 BRONCHITIS, ACUTE 12/21/2013 VERONICA INIGUEZ APRN 386.10 VERTIGO, PERIPHERAL UNSPECIFIED 12/21/2013 VERONICA INIGUEZ APRN 466.0 BRONCHITIS, ACUTE 12/21/2013 BRETROVERTO BENJAMIN APRN 386.10 VERTIGO, PERIPHERAL UNSPECIFIED 12/21/2013 BRETROVERTO BENJAMIN APRN 466.0 BRONCHITIS, ACUTE 12/21/2013 KAYE DO, KELLY K 386.10 VERTIGO, PERIPHERAL UNSPECIFIED 12/21/2013 AKYE DO, KELLY K 466.0 BRONCHITIS, ACUTE 02/22/2014 KAYE DO, KELLY K 723.1 CERVICALGIA 02/22/2014 KAYE DO, KELLY K 723.1 CERVICALGIA 02/22/2014 KAYE DO, KELLY K 723.1 CERVICALGIA 02/22/2014 KAYE DO, KELLY K 723.1 CERVICALGIA 02/22/2014 VERONICA INIGUEZ APRN 723.1 CERVICALGIA 02/22/2014 BRETROVERTO BENJAMIN APRN 723.1 CERVICALGIA 02/22/2014 KAYE DO, KELLY K 723.1 CERVICALGIA 07/29/2014 ROVERTO BOLANOS APRN 599.0 URINARY TRACT INFECTION SITE NOT SPECIFIED 07/29/2014 KAYE DO, KELLY K 599.0 URINARY TRACT INFECTION SITE NOT SPECIFIED 11/12/2014 KAYE DO, KELLY K 464.00 ACUTE LARYNGITIS WITHOUT OBSTRUCTION 02/19/2018 VERONICA INIGUEZ Ot 789.00 ABDOMINAL PAIN, UNSPECIFIED SITE 02/19/2018 FINN CAHNG APRN Ot E11.9 TYPE 2 DIABETES MELLITUS WITHOUT COMPLIC 02/19/2018 FINN CHANG APRN Ot I10 ESSENTIAL (PRIMARY) HYPERTENSION 02/19/2018 FINN CHANG APRN Ot M54.16 RADICULOPATHY, LUMBAR REGION 02/19/2018 FINN CHANG APRN Ot M54.5 LOW BACK PAIN 02/19/2018 FINN CHANG Alma PROSTHETIST Ot Z90.710 ACQUIRED ABSENCE OF BOTH CERVIX AND UTER 02/19/2018 FINN CHANG Alma PROSTHETIST Ot Z90.89 ACQUIRED ABSENCE OF OTHER ORGANS 02/19/2018 VERONICA INIGUEZ CFNP Ot 789.00 ABDOMINAL PAIN, UNSPECIFIED SITE 02/24/2018 VERONICA INIGUEZ CFNP Ot 789.00 ABDOMINAL PAIN, UNSPECIFIED SITE 05/06/2018 VERONICA INIGUEZ CFNP Ot 789.00 ABDOMINAL PAIN, UNSPECIFIED SITE 05/09/2018 VERONICA INIGUEZ CFNP Ot 789.00 ABDOMINAL PAIN, UNSPECIFIED SITE Procedures Code Description [place] [address] THERAPUTIC INJ SQ/IM 11/29/2012 J1885 TORADOL INJ 11/29/2012 J2550 PHENERGAN INJECTION UP TO 50 MG 11/29/2012 98495 XRAY LUMBAR SPINE 2 OR 3 VIEWS 03/09/2013 61749 XRAY WRIST RIGHT 2 VIEWS 03/09/2013 06460 ROUTINE VENIPUNCTURE 06/08/2013 85652 CBC 06/09/2013 87175 AMYLASE 06/09/2013 17096 LIPASE 06/09/2013 6288396 GFR CALC (RESULT ONLY) 06/09/2013 53575 CMP 06/09/2013 38531 KUB 06/12/2013 13371 US ABDOMINAL ULTRASOUND, COMPLETE 06/15/2013 34363 CULTURE URINE 07/29/2014 89625 UA LONG DIP 07/29/2014 Results Test Result Range CULTURE, URINE - 12/04/17 14:27 CULTURE, URINE, ROUTINE SEE NOTE NRG GC/CHLAMYDIA (SWAB OR URINE)-RAPID - 04/25/18 16:54 CHLAMYDIA TRACHOMATIS RNA, TMA NOT DETECTED NOT DETECTED NEISSERIA GONORRHOEAE RNA, TMA NOT DETECTED NOT DETECTED COMMENT NRG CULTURE, GENITAL - 04/25/18 16:54 CULTURE, GENITAL SEE NOTE NRG SUREPATH PAP - 04/25/18 16:54 CLINICAL INFORMATION: NRG LMP: 1996 NRG PREV. PAP: NRG PREV. BX: NRG SOURCE: Vagina NRG STATEMENT OF ADEQUACY: NRG INTERPRETATION/RESULT: NRG DESIGN ASSEMBLER: NRG COMMENT NRG Blood type T Indirect antibody screen panel - 07/18/18 14:07 ABO+Rh group BP NRG Blood group antibody screen POSITIVE NRG Blood group antibodies identified - 07/18/18 14:07 Blood group antibodies identified K NRG K Ag - 07/18/18 14:07 K Ag K NRG Encounters ACCT No. Visit Date/Time Discharge Status Pt. Type Provider Facility Loc./Unit Complaint [id number] 01/24/2015 17:44:00 01/24/2015 23:59:59 CLS Outpatient KAYE DOKELLY [id number] 07/29/2014 08:57:00 07/29/2014 23:59:59 CLS Outpatient ROVERTO BOLANOS APRN [id number] 06/28/2014 15:02:00 06/28/2014 23:59:59 CLS Outpatient VERONICA INIGUEZ APRN [id number] 05/24/2014 16:35:00 05/24/2014 23:59:59 CLS Outpatient KAYE DOKELLY [id number] 04/28/2014 16:52:00 04/28/2014 23:59:59 CLS Outpatient KAYE DOKELLY [id number] 03/29/2014 10:31:00 03/29/2014 23:59:59 CLS Outpatient KAYE DOKELLY [id number] 03/01/2014 17:44:00 03/01/2014 23:59:59 CLS Outpatient KAYE DOKELLY [id number] 01/18/2014 17:27:00 01/18/2014 23:59:59 CLS Outpatient KAYE DOKELLY [id number] 12/31/2013 10:25:00 12/31/2013 23:59:59 CLS Outpatient KAYE DOKELLY [id number] 12/21/2013 12:01:00 12/21/2013 23:59:59 CLS Outpatient KAYE DOKELLY [id number] 09/02/2013 13:28:00 09/02/2013 23:59:59 CLS Outpatient KAYE DOKELLY Leonor [id number] 07/29/2013 13:28:00 07/29/2013 23:59:59 CLS Outpatient KAYE DOKELLY Leonor [id number] 07/13/2013 09:54:00 07/13/2013 23:59:59 CLS Outpatient KAYE DOKELLY Leonor [id number] 12/19/2012 08:40:00 12/19/2012 23:59:59 CLS Outpatient VERONICA INIGUEZ APRN [id number] 11/29/2012 12:44:00 11/29/2012 23:59:59 CLS Outpatient [id number] 10/23/2012 09:14:00 10/23/2012 23:59:59 CLS Outpatient [id number] 10/10/2012 09:28:00 10/10/2012 23:59:59 CLS Outpatient INIGUEZVERONICA CRUZ APRN [id number] 08/27/2012 13:04:00 08/27/2012 23:59:59 CLS Outpatient [id number] 06/15/2013 18:12:00 Document Registration [id number] 05/25/2013 15:11:00 Document Registration [id number] 04/02/2013 14:27:00 Document Registration [id number] 03/19/2013 14:18:00 Document Registration [id number] 03/09/2013 09:59:00 Document Registration [id number] 01/29/2013 15:56:00 Document Registration [id number] 04/28/2018 17:00:00 04/28/2018 23:59:59 CLS Outpatient VERONICA INIGUEZ APRN [facility] [id number] 04/25/2018 16:00:00 Document Registration [id number] 12/04/2017 14:00:00 Document Registration [id number] 09/26/2013 11:37:55 ACT Document Registration [id number] 07/15/2018 10:18:00 07/15/2018 15:00:00 DIS Outpatient VERONICA GIRON DO [facility] PREOP CYSTOCELE [id number] 05/05/2018 12:56:00 05/05/2018 23:59:59 CLS Preadmit DEGRAFFEYOVANI LU [facility] RAD SCREENING BREAST EXAMINATION [id number] 02/19/2018 21:16:00 02/19/2018 22:18:00 DIS Emergency FINN CHANG APRN [facility] ER BACK PAIN [id number] 06/12/2013 08:12:00 06/12/2013 23:59:59 CLS Outpatient VERONICA INIGUEZ CFNP [facility] RAD ABD PAIN [id number] 2018 15:33:00 Document Registration
[2018-07-24] MEDS ORDERED: CATHETER FLUSH 10 ML SYR IV PRN (06:45)
[2018-07-24] MEDS ORDERED: BUPIVACAINE 0.5% 30 ML (SENSORCAINE) VIAL ONE (06:46)
[2018-07-24] MEDS ORDERED: VASOPRESSIN INJECTION 20 UNIT/ML VIAL ONE (06:47)
[2018-07-24] MEDS ORDERED: ESTROGENS CONJ. CREAM 30 GM (PREMARIN) TUBE ONE (06:47)
[2018-07-24] MEDS ORDERED: NS (IVPB) 50 ML ONE (06:47)
[2018-07-24] MEDS ORDERED: ONDANSETRON 4 MG/2 ML (SDV) Z0FRAN ONE ×2 (06:48→06:55)
[2018-07-24] MEDS ORDERED: proPOfol 200 MG/20 ML (DIPRIVAN) VIAL IV ONE ×2 (06:48→08:55)
[2018-07-24] MEDS ORDERED: LIDOCAINE PF 2% 2 ML (XYLOCAINE) VIAL ONE (06:48)
[2018-07-24] MEDS ORDERED: fentaNYL INJECTION 100 MCG/2 ML AMP ONE (06:49)
[2018-07-24] MEDS ORDERED: ROCURONIUM 10 MG/ML 5 ML SYRINGE IV ONE (06:49)
[2018-07-24] MEDS ORDERED: SEVOFLURANE (ULTANE) 15 ML INHAL SOLN ONE ×6 (06:49→09:13)
[2018-07-24] MEDS ORDERED: MIDAZOLAM 2 MG/2 ML (VERSED) VIAL ONE (06:49)
[2018-07-24 06:52] LABS: BASOPHILS % (AUTO) 1 % (0-10); EOSINOPHILS # (AUTO) 0.1 10^3/uL (0.0-0.3); EOSINOPHILS % (AUTO) 2 % (0-10); HEMATOCRIT 41 % (35-52); HEMOGLOBIN 14.3 G/DL (11.5-16.0); LYMPHOCYTES # (AUTO) 1.8 X 10^3 (1.0-4.0); LYMPHOCYTES % (AUTO) 33 % (12-44); MEAN CORPUSCULAR HEMOGLOBIN 32 PG (25-34); MEAN CORPUSCULAR HGB CONC 35 G/DL (32-36); MEAN CORPUSCULAR VOLUME 91 FL (80-99); MEAN PLATELET VOLUME 9.8 FL (7.4-10.4); MONOCYTES # (AUTO) 0.4 X 10^3 (0.0-1.0); MONOCYTES % (AUTO) 7 % (0-12); NEUTROPHILS # (AUTO) 3.1 X 10^3 (1.8-7.8); NEUTROPHILS % (AUTO) 57 % (42-75); PLATELET COUNT 151 10^3/uL (130-400); RED BLOOD COUNT 4.53 10^6/uL (4.35-5.85); RED CELL DISTRIBUTION WIDTH 13.2 % (10.0-14.5); WHITE BLOOD COUNT 5.5 10^3/uL (4.3-11.0)
[2018-07-24] MEDS ORDERED: SCOPOLAMINE 1.5 MG (TRANSDERM-SCOP) PATCH ONE (06:55)
[2018-07-24] MEDS ORDERED: FAMOTIDINE 20MG/2ML IV (PEPCID) ONE (06:55)
[2018-07-24] MEDS: LACTATED RINGERS 1,000 ML IV PRN ×2 (07:00→08:45)
[2018-07-24] MEDS ORDERED: LACTATED RINGERS 1,000 ML IV PRN (07:05)
[2018-07-24] MEDS ORDERED: SCOPOLAMINE 1.5 MG (TRANSDERM-SCOP) PATCH TOP ONE (07:15)
[2018-07-24] MEDS ORDERED: ONDANSETRON 4 MG/2 ML (SDV) Z0FRAN IV ONE (07:15)
[2018-07-24] MEDS ORDERED: FAMOTIDINE 20MG/2ML IV (PEPCID) IV ONE (07:15)
--- NOTE | 2018-07-24 07:16 | Progress Note-Pre Operative ---
Pre-Operative Progress Note H&P Reviewed The H&P was reviewed, patient examined and no changes noted. Date Seen by Provider: Jul 24, 2018 Time Seen by Provider: 07:05 Date H&P Reviewed: Jul 24, 2018 Time H&P Reviewed: 07:00 Pre-Operative Diagnosis: Cystocele, Fam History of ovarian ca VERONICA GIRON DO Jul 24, 2018 7:16 am
--- NOTE | 2018-07-24 07:20 | Discharge Inst-Women's Service ---
Discharge Inst-Women's Serv Depart Medication/Instructions New, Converted or Re-Newed RX: RX on Chart Consults/Follow Up Additional Follow Up: Yes Orders/Referrals Dr. Hurst in 2 weeks Activity Activity: Activity as Tolerated Driving Instructions: You May Drive (Do not drive while taking hydrocodone for pain) NO SMOKING: NO SMOKING Nothing Inside Vagina: No Douching, No [place], No Tampons Diet Discharge Diet: No Restrictions Symptoms to Report to : Bleeding Excessive, Pain Increased, Fever Over 101 Degrees F, Vaginal Bleeding Increase, Questions/Concerns For Any Problems or Questions: Contact Your Physician Skin/Wound Care Infection Signs and Symptoms: Increased Redness, Foul Odor of Wound, Increased Drainage, Skin Itchy or Has a Rash, Temperature Above 101 F Stitches/[place]/Dermabond: Dermabond, Care of Stitches Bathing Instructions: VERONICA Ulrich DO Jul 24, 2018 7:20 am
[2018-07-24] MEDS ORDERED: IBUP-844 PO (07:22)
[2018-07-24] MEDS ORDERED: HYDR-34 PO (07:22)
[2018-07-24] MEDS ORDERED: DOCU100C37 PO (07:22)
[2018-07-24] MEDS ORDERED: SIME80TA16 PO (07:22)
[2018-07-24] MEDS ORDERED: CHLORASEPTIC LOZENGE MM PRN (07:30)
[2018-07-24] MEDS ORDERED: ANTACID SUSP 30 ML UDC (MYLANTA) PO PRN (07:30)
[2018-07-24] MEDS ORDERED: ONDANSETRON 4 MG/2 ML (SDV) Z0FRAN IV PRN (07:30)
[2018-07-24] MEDS ORDERED: ZOLPIDEM 5 MG (AMBIEN) TAB PO PRN (07:30)
[2018-07-24] MEDS ORDERED: GLYCOPYRROLATE 0.2 MG/ML (ROBINUL) 2 ML VIAL ONE (08:28)
[2018-07-24] MEDS ORDERED: NEOSTIGMINE 1 MG/ML 5 ML SYRINGE ONE (08:28)
[2018-07-24] MEDS ORDERED: DEXAMETHASONE 10 MG/ML (DECADRON) 1 ML VIAL ONE (08:55)
[2018-07-24] MEDS ORDERED: HYDROmorphone 2 MG/ML VIAL (DILAUDID) IV ONE (09:15)
[2018-07-24] MEDS ORDERED: morphine INJ 10 MG/ML 1ML (SYR OR VIAL) IVP ONE (09:15)
[2018-07-24] MEDS ORDERED: ONDANSETRON 4 MG/2 ML (SDV) Z0FRAN IVP PRN (09:15)
[2018-07-24] MEDS: KETOROLAC 30 MG/ML VIAL IV PRN ×3 (09:31→21:16)
[2018-07-24] MEDS: LACTATED RINGERS 1,000 ML IV SCH ×2 (10:46→12:25)
[2018-07-24 10:50] VITALS: BP 114/79
[2018-07-24] MEDS ORDERED: Omeprazole 40 MG PO PRN (11:00)
[2018-07-24] MEDS ORDERED: PATIENT MAY USE OWN MEDS, ALL MC SCH (11:00)
--- NOTE | 2018-07-24 12:10 | Anesthesia-General Post-Op ---
General Patient Condition Mental Status/LOC: Same as Preop Cardiovascular: Satisfactory Nausea/Vomiting: Absent Respiratory: Satisfactory Pain: Controlled Complications: Absent Post Op Complications Complications None Follow Up Care/Instructions Patient Instructions None needed. Anesthesia/Patient Condition Patient Condition Patient is doing well, no complaints, stable vital signs, no apparent adverse anesthesia problems. No complications reported per nursing. TOMY QUEEN CRNA Jul 24, 2018 12:10
[2018-07-24 12:26] VITALS: BP 120/78
[2018-07-24] MEDS ORDERED: FLU QUADRIvalent (5+ YOA) 2018-2019 (AFLURIA) 0.5 ML IM ONE (13:00)
[2018-07-24] MEDS ORDERED: ENOXAPARIN 60 MG/0.6 ML (LOVENOX) SYR SC SCH (13:00)
--- NOTE | 2018-07-24 13:47 | OPERATIVE REPORT ---
DATE OF SERVICE: PREOPERATIVE DIAGNOSES: 1. A 48-year-old female with cystocele, grade III. 2. Family history of ovarian cancer. POSTOPERATIVE DIAGNOSES: 1. A 48-year-old female with cystocele, grade III. 2. Family history of ovarian cancer. PROCEDURE: 1. Laparoscopic RSO with greater than 30 minutes extensive lysis of adhesions. 2. Anterior colporrhaphy. SURGEON: Veronica Giron DO ANESTHESIA: General endotracheal. ESTIMATED BLOOD LOSS: 50 mL. URINE OUTPUT 125 mL clear at the end of the procedure. FLUIDS: 1200 mL of lactated Ringer's solution. FINDINGS: Dense abdominal adhesions of the omentum to the anterior abdominal wall. Dense adhesions of the remaining right adnexa to the right pelvic sidewall. A grade III cystocele, grade II to grade III rectocele. Grossly normal-appearing vaginal mucosa. SPECIMENS SENT: Right tube and ovary. INDICATIONS FOR PROCEDURE: This 48-year-old female is a consultation to my office for ongoing issues with not being able to void completely and the finding of cystocele on annual pelvic exam. On my examination, I concur with this finding. There does not seem to be an urethrocele. Therefore, urethropexy was not discussed; however, we did discuss the possibility of needing a sling down the road if stress urinary incontinence were to persist. I discussed with the patient proceeding with a pessary; however, she is relatively young and sexually active with her and will prefer not to go down the route of pessary and would prefer to have this surgically corrected. I discussed with the patient the procedure, anterior colporrhaphy, the risks involved as well as postoperative recovery time, restrictions, and pelvic rest, postoperative expectations were all covered with the patient as well as the possible risk of damaging surrounding structures and possible need for reoperation. At the point of discussing this, she also discussed the strong family history of ovarian cancer and would like to proceed with the removal of her remaining right adnexa. She underwent hysterectomy at a very young age and her right tube and ovary were left behind for ongoing hormonal support; however, she is 48 years old now and is getting close to menopause and would like the ovary removed. I discussed with the patient the risks involved with this procedure in a similar fashion, the postoperative and preoperative expectations and recovery timeframe changing as well as the possible need for reoperation. After everything was discussed with the patient, consent was obtained in the preoperative area and the patient was taken to the operating room. OPERATIVE REPORT IN DETAIL: Once in the operating room, general anesthesia was found to be adequate, she was placed in dorsal lithotomy position, prepped and draped in normal sterile fashion. I first took my attention to the abdomen where I supraumbilically infiltrate the area using 0.25% Marcaine and made a 12 mm incision and directed a 12 mm bariatric trocar with camera guidance, optiview trocar through the abdominal wall. The intraperitoneal placement confirmed using the laparoscope. I then proceeded with insufflation using CO2 gas and opening pressure of 8 mmHg was noted. I proceeded to maximum pressure of 15 mmHg, at which point I removed the obturator from the laparoscope and I was able once again to confirm intraperitoneal placement. A brief scan of the abdominal anatomy shows that there were extensive adhesions of the omentum to the anterior abdominal wall and the patient placed in Trendelenburg. So, I was able to see the pelvic anatomy and able to identify the remaining right adnexa. Once I was able to do so, I placed 2 other trocars, used both 5 mm trocars, one suprapubic and one in the left lower quadrant. The skin was infiltrated using 0.25% Marcaine and the trocars were placed under direct visualization of laparoscope. Once these were in place, I was able to bluntly dissect the adnexa off the right pelvic sidewall which took a significant amount of time. I had to use some sharp dissection and used the LigaSure device in order to bipolar cauterize and achieve hemostasis as I dissected. Once I had liberated from the right pelvic side wall, I was able to remove it through an Endopouch bag. All of this took me in excess of 30 minutes due to the adhesions that were on the way. I then placed Surgicel over my planes of dissection to ensure excellent postoperative hemostasis after I copiously irrigated the pelvis using normal saline and no active bleeding was noted. I then released insufflation through my trocar sites and removed these trocars, closing the incision using 4-0 Monocryl interrupted subcuticular stitches. Dermabond applied to the incisions and Band-Aids were placed over these. I then performed a change of gloves and took my attention to the pelvis where I placed a Kendall catheter using sterile technique. A weighted speculum was inserted into the patient's vagina and I was able to visualize the grade III cystocele that was previously mentioned. I infiltrated the submucosa of the margins of the cystocele using vasopressin in a concentration of 10 units in 50 mL of normal saline. Once this was done, I made an incision at the bladder neck using a knife, and using Metzenbaum scissors, undermined the submucosa down the midline of the incision all the way down the distal and the proximal margins of the cystocele. I then grasped the lateral aspects of this incision and bluntly dissected off of the underlying vesicovaginal fascia. I trimmed the excess vaginal mucosa and reapproximated the vaginal fascia in plicating fashion using 0 Vicryl suture in interrupted fashion. I then closed and reapproximate the mucosa of the vagina using 3-0 Vicryl suture in running locked fashion, after which there was no active bleeding noted from any of my dissection planes. I packed the vagina using vaginal packing soaked in Premarin cream. Once again, no active bleeding was noted. Kendall catheter was left in place. The patient tolerated the procedure well and sent to recovery in stable condition. Lap and sponge counts were correct at the end of the procedure. Instrument count was correct as well. Job ID: [id number] DocumentID: [id number] Dictated Date: 07/24/2018 09:26:14 [employer] Supervisor Date: 07/24/2018 13:46:59 Dictated By: VERONICA GIRON DO
[2018-07-24] MEDS: HYDROcodone/APAP 7.5 MG/325 MG (LORTAB, LORCET PLUS) TABLET PO PRN ×2 (14:26→21:24)
[2018-07-24 18:00] VITALS: BP 119/65
[2018-07-24] MEDS: DOCUSATE SODIUM 100 MG (COLACE) CAP PO PRN ×2 (18:00→21:16)
[2018-07-24] MEDS ORDERED: metFORMIN XR 500 MG (GLUCOPHAGE XR) TAB PO SCH (18:00)
[2018-07-24] MEDS: SIMETHICONE 80 MG (MYLICON) CHEW PO PRN (18:00)
[2018-07-24] MEDS ORDERED: traZODone 50 MG (DESYREL) TAB PO SCH (21:00)
[2018-07-24 21:19] VITALS: BP 92/58
[2018-07-24] MEDS: VENLAFAXINE HCL 100 MG PO SCH (21:20)
[2018-07-25] MEDS ORDERED: IBUPROFEN 600 MG (MOTRIN) TAB PO PRN
[2018-07-25 01:35] VITALS: BP 101/61
[2018-07-25] MEDS ORDERED: KETOROLAC 30 MG/ML VIAL ONE (03:30)
[2018-07-25] MEDS: KETOROLAC 30 MG/ML VIAL IV PRN (03:32)
[2018-07-25] MEDS: HYDROcodone/APAP 7.5 MG/325 MG (LORTAB, LORCET PLUS) TABLET PO PRN ×2 (03:33→09:27)
[2018-07-25 06:30] VITALS: BP 113/66
[2018-07-25] MEDS: LACTATED RINGERS 1,000 ML IV SCH (06:55)
[2018-07-25 07:58] VITALS: BP 98/59
[2018-07-25] MEDS: DOCUSATE SODIUM 100 MG (COLACE) CAP PO PRN (08:32)
[2018-07-25] MEDS: SIMETHICONE 80 MG (MYLICON) CHEW PO PRN (08:33)
[2018-07-25] MEDS ORDERED: FLU QUADRIvalent (5+ YOA) 2018-2019 (AFLURIA) 0.5 ML IM ONE (09:22)
[2018-07-25] MEDS: VENLAFAXINE HCL 100 MG PO SCH (09:32)
--- NOTE | 2018-07-25 09:59 | Anesthesia-General Post-Op ---
General Patient Condition Mental Status/LOC: Same as Preop Cardiovascular: Satisfactory Nausea/Vomiting: Absent Respiratory: Satisfactory Pain: Controlled Complications: Absent Post Op Complications Complications None Follow Up Care/Instructions Patient Instructions None needed. Anesthesia/Patient Condition Patient Condition Patient is doing well, no complaints, stable vital signs, no apparent adverse anesthesia problems. No complications reported per nursing. YANI JACOB CRNA Jul 25, 2018 09:59
== END 2018-07-25 10:50 | disposition home or self-care (01) ==
LOC: SDC 05:52 → WS 10:21 → SDC 07-25 10:50
PROVIDERS: ATTEND Obstetrics & Gynecology
DX: N81.10 Cystocele, unspecified (principal); N81.6 Rectocele; N73.6 Female pelvic peritoneal adhesions (postinfective); Z80.41 Family history of malignant neoplasm of ovary; E11.9 Type 2 diabetes mellitus without complications; K21.9 Gastro-esophageal reflux disease without esophagitis; E66.01 Morbid (severe) obesity due to excess calories; Z68.43 Body mass index [BMI] 50.0-59.9, adult; Z79.84 Long term (current) use of oral hypoglycemic drugs; Z79.899 Other long term (current) drug therapy; Z23 Encounter for immunization
CPT/HCPCS: 36415; 85025; 86850; 86900; 86901; 87081; 90686; 94664

== ENCOUNTER 2019-04-09 09:27 | Outpatient (RCR) | payer MEDICAID, OTHER ==
[~2019-04-09 09:27] MED LIST changes: +DOCU100C37 PO; +HYDR-34 PO; +IBUP-844 PO; +SIME80TA16 PO; -TRAZ-189 PO; +TRAZ-222 PO
== END 2019-07-08 | disposition home or self-care (01) ==
LOC: ONC 09:27
PROVIDERS: ATTEND Internal Medicine Hematology & Oncology
DX: Z09 Encounter for follow-up examination after completed treatment for conditions other than malignant neoplasm (principal); Z86.718 Personal history of other venous thrombosis and embolism; E11.9 Type 2 diabetes mellitus without complications; E78.5 Hyperlipidemia, unspecified; M19.91 Primary osteoarthritis, unspecified site; E66.01 Morbid (severe) obesity due to excess calories; Z68.44 Body mass index [BMI] 60.0-69.9, adult; Z79.84 Long term (current) use of oral hypoglycemic drugs; Z79.899 Other long term (current) drug therapy
CPT/HCPCS: 99214

== ENCOUNTER 2020-04-06 06:50 | Outpatient (CLI) | payer MEDICAID ==
[~2020-04-06] VITALS: Ht 167.7 cm; Wt 111.4 kg
[2020-04-06] VITALS (11 sets, daily range): BP systolic 92–116; BP diastolic 53–74
[~2020-04-06 06:50] MED LIST changes: +METF-865 PO; -METF500T8 PO; +OMEP40CA27 PO; -OMEP40CA36 PO; -TRAM50TA2 PO; -TRAZ-222 PO; +TRM50T PO; +TRZ50T PO
[2020-04-06 07:17] LABS: HEMOGLOBIN 15.1 G/DL (11.5-16.0); MEAN PLATELET VOLUME 11.2 FL (7.4-10.4); RED CELL DISTRIBUTION WIDTH 14.2 % (10.0-14.5); WHITE BLOOD COUNT 5.4 10^3/uL (4.3-11.0)
[2020-04-06 07:34] LABS: INR 0.9 (0.8-1.4); PROTHROMBIN TIME PATIENT 12.7 SEC (12.2-14.7)
[2020-04-06] MEDS ORDERED: ACHYD1T PO (07:54)
[2020-04-06] MEDS ORDERED: NS IV 1000 ML 1,000 ML IV STA (07:59)
[2020-04-06] MEDS ORDERED: fentaNYL INJECTION 100 MCG/2 ML AMP IVP ONE (08:00)
[2020-04-06] MEDS ORDERED: LIDOCAINE 1% INJ 20 ML 20 ML VIAL INJ ONE (08:00)
[2020-04-06] MEDS ORDERED: MIDAZOLAM 2 MG/2 ML (VERSED) VIAL IVP ONE (08:00)
[2020-04-06] MEDS ORDERED: BACL10TA PO (08:04)
[2020-04-06] MEDS ORDERED: CLON0.5T4 PO (08:04)
[2020-04-06] MEDS ORDERED: PREG75CA PO (08:04)
[2020-04-06] MEDS ORDERED: ZOLP5TAB PO (08:04)
[2020-04-06] MEDS ORDERED: MULT-1136 PO (08:07)
[2020-04-06] MEDS ORDERED: BIOT10005 PO (08:07)
--- NOTE | 2020-04-06 09:17 | NUR ---
TO AMB SURG FROM RADIOLOGY PER CART. CLARISSA/JUNIOR DSG D/I TO RIGHT UPPER LATERAL ABDOMEN. RATES DISCOMFORT 2. REQUESTING PAIN MEDICATION. PO FLUIDS AND CRACKERS PROVIDED.
--- NOTE | 2020-04-06 09:27 | Pre-Op Note & Conscious Sedat ---
Pre-Operative Progress Note H&P Reviewed The H&P was reviewed, patient examined and no changes noted. Date H&P Reviewed: Apr 06, 2020 Time H&P Reviewed: 08:00 Pre-Op Diagnosis: Liver mass Conscious Sedation Pre-Proced Time 08:00 ASA Score 2 For ASA 3 and 4: Consider anesthesia and medical clearance. Also, for patients with a history of failed moderate sedation consider anesthesia. Airway Lungs Heart ASA score ASA 1: a normal healthy patient ASA 2: a patient with a mild systemic disease (mid diabetes, controlled hypertension, obesity ASA 3: a patient with a severe systemic disease that limits activity (angina, COPD, prior Myocardial infarction) ASA 4: a patient with an incapacitating disease that is a constant threat to life (CHF, renal failure) ASA 5: a moribund patient not expected to survive 24 hrs. (ruptured aneurysm) ASA 6: a declared brain- patient whose organs are being harvested. For emergent operations, add the letter E after the classification Mallampati Classification Grade 2 Sedation Plan Analgesia, Amnesia, Plan communicated to team members, Discussed options with patient/fam, Discussed risks with patient/fam The patient is an appropriate candidate to undergo the planned procedure, sedation, and anesthesia. The patient immediately re-assessed prior to indication. OSCAR DIAZ MD Apr 06, 2020 09:27
[2020-04-06] MEDS ORDERED: HYDROcodone/APAP 5 MG/325 MG (LORTAB) TAB PO PRN (09:30)
--- NOTE | 2020-04-06 09:41 | Diagnostic Imaging Report ---
INDICATION: Liver mass. Patient presents for CT-guided biopsy. TECHNIQUE: All CT scans use one or more of the following dose optimizing techniques: automated exposure control, MA and/or KvP adjustment based on a patient size and exam type, or iterative reconstruction. After informed written consent was obtained from the patient, patient brought to the CT suite and placed on the table in the left side down decubitus position. Axial imaging through the abdomen was performed to evaluate appropriate entry site. Study was performed utilizing conscious sedation with radiology nursing and constant monitoring. Patient was administered a total of 75 mcg of Fentanyl intravenously and 1 mg of Versed intravenously. Total procedure time approximately 11 minutes. The right abdomen was prepped and draped in usual sterile fashion. A small amount of 1% lidocaine utilized for local anesthesia. 18-gauge coaxial Temno needle was advanced into the right lobe of the liver. Needle tip was placed along the edge of the low-attenuation mass in the right lobe. A total 4 core biopsies were obtained. Needle was withdrawn during injection of a blood patch. Hemostasis was obtained using manual compression. Patient tolerated procedure well and left the department in stable condition. IMPRESSION: Successful CT-guided core biopsy of right lobe liver mass, utilizing conscious sedation. Pathology results are currently pending. Dictated by: Dictated on workstation # [id number]
--- NOTE | 2020-04-06 09:44 | NUR ---
LORTAB 5/325 MG, 2 TABS GIVEN PO PER PT REQUEST.
--- NOTE | 2020-04-06 10:30 | NUR ---
RESTING QUIETLY IN BED WITH EYES CLOSED. NO CHANGE IN SITE ASSESSMENT.
--- NOTE | 2020-04-06 11:40 | NUR ---
AWAKE NOW, STATES SHE IS READY FOR DISMISSAL. NO CHANGE IN SITE ASSESSMENT, RATES PAIN 1-2.
== END 2020-04-06 11:40 | disposition home or self-care (01) ==
LOC: SDC 06:50
PROVIDERS: ATTEND Surgery
DX: D37.6 Neoplasm of uncertain behavior of liver, gallbladder and bile ducts (principal); R16.0 Hepatomegaly, not elsewhere classified
CPT/HCPCS: 36415; 77012; 85027; 85610; 85730; 99156

== ENCOUNTER → 2020-04-19 | Outpatient (CLI) | payer MEDICAID ==
[~2020-04-19] MED LIST changes: +ACHYD1T PO; +BACL10TA PO; +BIOT10005 PO; +CLON0.5T4 PO; +MULT-1136 PO; +PREG75CA PO; +ZOLP5TAB PO
--- NOTE | 2020-04-19 14:04 | Diagnostic Imaging Report ---
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 TECHNIQUE: The serum blood glucose level at the time of injection was 97 mg/dL. The patient was administered 15.1 mCi of F-18 FDG intravenously in the right antecubital location and whole body PET imaging was performed. A noncontrast CT was also performed for attenuation correction and anatomic correlation. COMPARISON: No prior PET/CT study is available for comparison. Correlation is made with an outside CT study of the abdomen and pelvis performed on 03/28/2020. FINDINGS: There is symmetric activity throughout the brain. Physiologic activity in the soft tissues of the neck is noted. No mediastinal or hilar hypermetabolism is identified. No pulmonary parenchymal hypermetabolism or mass is detected. A large hypermetabolic mass in the posterior right lobe of the liver, recently biopsied, is noted. The SUV max is approximately 12. No other suspicious hypermetabolism in the abdomen or pelvis is seen. There is physiologic activity in the GI and tracts. No suspicious osseous uptake is identified. IMPRESSION: Large hypermetabolic mass in the right lobe of the liver corresponding with the recently biopsied lesion. No other suspicious regions of hypermetabolism are identified. Dictated by: Dictated on workstation # [id number]
== END ==
LOC: RAD 09:32
PROVIDERS: ATTEND Internal Medicine Hematology & Oncology
DX: C78.7 Secondary malignant neoplasm of liver and intrahepatic bile duct (principal); C80.1 Malignant (primary) neoplasm, unspecified; Z98.890 Other specified postprocedural states
CPT/HCPCS: 78816; A9552

== ENCOUNTER → 2020-05-09 | Outpatient (CLI) | payer MEDICAID ==
[2020-05-09 14:57] LABS: BASOPHILS % (AUTO) 0 % (0-10); EOSINOPHILS # (AUTO) 0.1 10^3/uL (0.0-0.3); EOSINOPHILS % (AUTO) 1 % (0-10); HEMATOCRIT 43 % (35-52); LYMPHOCYTES # (AUTO) 1.5 X 10^3 (1.0-4.0); LYMPHOCYTES % (AUTO) 25 % (12-44); MEAN CORPUSCULAR HEMOGLOBIN 30 PG (25-34); MEAN CORPUSCULAR HGB CONC 33 G/DL (32-36); MEAN CORPUSCULAR VOLUME 92 FL (80-99); MEAN PLATELET VOLUME 10.9 FL (7.4-10.4); MONOCYTES # (AUTO) 0.3 X 10^3 (0.0-1.0); MONOCYTES % (AUTO) 5 % (0-12); NEUTROPHILS # (AUTO) 4.1 X 10^3 (1.8-7.8); NEUTROPHILS % (AUTO) 69 % (42-75); PLATELET COUNT 164 10^3/uL (130-400); WHITE BLOOD COUNT 5.9 10^3/uL (4.3-11.0)
[2020-05-09 15:08] LABS: INR 1.1 (0.8-1.4); PROTHROMBIN TIME PATIENT 14.8 SEC (12.2-14.7)
[2020-05-09 15:16] LABS: ALANINE AMINOTRANSFERASE < 6 U/L (0-55); ALBUMIN 4.1 GM/DL (3.2-4.5); ALKALINE PHOSPHATASE 160 U/L (40-136); BILIRUBIN,TOTAL 0.4 MG/DL (0.1-1.0); BUN/CREATININE RATIO 17; CARBON DIOXIDE 27 MMOL/L (21-32); CHLORIDE 104 MMOL/L (98-107); CREATININE SERUM 0.81 MG/DL (0.60-1.30); GFR ESTIMATED > 60; GLUCOSE 77 MG/DL (70-105); POTASSIUM 4.1 MMOL/L (3.6-5.0); SODIUM 141 MMOL/L (135-145); TOTAL PROTEIN 7.1 GM/DL (6.4-8.2)
== END ==
LOC: LAB 11:16
PROVIDERS: ATTEND Student in an Organized Health Care Education/Training Program
DX: C80.1 Malignant (primary) neoplasm, unspecified (principal); C78.7 Secondary malignant neoplasm of liver and intrahepatic bile duct
CPT/HCPCS: 36415; 80053; 85025; 85610

== ENCOUNTER → 2020-05-10 | Outpatient (CLI) | payer MEDICAID | LOC: LABNPT 06:47 | PROVIDERS: ATTEND Student in an Organized Health Care Education/Training Program | DX: Z11.59 Encounter for screening for other viral diseases (principal); C78.7 Secondary malignant neoplasm of liver and intrahepatic bile duct; Z20.828 Contact with and (suspected) exposure to other viral communicable diseases ==

== ENCOUNTER → 2020-06-15 | Outpatient (CLI) | payer MEDICAID | LOC: LABNPT 08:59 | PROVIDERS: ATTEND Student in an Organized Health Care Education/Training Program | DX: Z20.828 Contact with and (suspected) exposure to other viral communicable diseases (principal) | CPT/HCPCS: 87635 ==

== ENCOUNTER → 2020-06-30 | Outpatient (CLI) | payer MEDICAID ==
[2020-06-30 12:21] LABS: HEMOGLOBIN 13.4 G/DL (11.5-16.0); MEAN PLATELET VOLUME 10.6 FL (7.4-10.4); WHITE BLOOD COUNT 4.3 10^3/uL (4.3-11.0)
[2020-06-30 12:40] LABS: ALANINE AMINOTRANSFERASE < 6 U/L (0-55); ALKALINE PHOSPHATASE 232 U/L (40-136); BILIRUBIN,TOTAL 0.6 MG/DL (0.1-1.0); BUN/CREATININE RATIO 20; CARBON DIOXIDE 26 MMOL/L (21-32); CHLORIDE 101 MMOL/L (98-107); CREATININE SERUM 0.76 MG/DL (0.60-1.30); GFR ESTIMATED > 60; GLUCOSE 81 MG/DL (70-105); POTASSIUM 4.5 MMOL/L (3.6-5.0); SODIUM 138 MMOL/L (135-145); TOTAL PROTEIN 7.2 GM/DL (6.4-8.2)
== END ==
LOC: LAB 11:55
PROVIDERS: ATTEND Student in an Organized Health Care Education/Training Program
DX: R16.0 Hepatomegaly, not elsewhere classified (principal)
CPT/HCPCS: 36415; 80053; 85027

== ENCOUNTER 2020-07-13 12:52 | Outpatient (RCR) | payer MEDICAID ==
[2020-04-15 13:19] LABS: BASOPHILS % (AUTO) 0 % (0-10); EOSINOPHILS # (AUTO) 0.1 10^3/uL (0.0-0.3); EOSINOPHILS % (AUTO) 1 % (0-10); HEMATOCRIT 47 % (35-52); HEMOGLOBIN 15.3 G/DL (11.5-16.0); LYMPHOCYTES # (AUTO) 1.2 X 10^3 (1.0-4.0); LYMPHOCYTES % (AUTO) 25 % (12-44); MEAN CORPUSCULAR HEMOGLOBIN 30 PG (25-34); MEAN CORPUSCULAR HGB CONC 33 G/DL (32-36); MEAN CORPUSCULAR VOLUME 91 FL (80-99); MEAN PLATELET VOLUME 11.2 FL (7.4-10.4); MONOCYTES # (AUTO) 0.3 X 10^3 (0.0-1.0); MONOCYTES % (AUTO) 6 % (0-12); NEUTROPHILS # (AUTO) 3.4 X 10^3 (1.8-7.8); NEUTROPHILS % (AUTO) 68 % (42-75); PLATELET COUNT 181 10^3/uL (130-400); WHITE BLOOD COUNT 4.9 10^3/uL (4.3-11.0)
[2020-04-15 13:39] LABS: ALANINE AMINOTRANSFERASE < 6 U/L (0-55); ALBUMIN 4.5 GM/DL (3.2-4.5); ALKALINE PHOSPHATASE 166 U/L (40-136); BILIRUBIN,TOTAL 0.6 MG/DL (0.1-1.0); BUN/CREATININE RATIO 11; CALCIUM 10.5 MG/DL (8.5-10.1); CARBON DIOXIDE 31 MMOL/L (21-32); CHLORIDE 103 MMOL/L (98-107); CREATININE SERUM 0.88 MG/DL (0.60-1.30); GFR ESTIMATED > 60; GLUCOSE 98 MG/DL (70-105); POTASSIUM 4.3 MMOL/L (3.6-5.0); SODIUM 141 MMOL/L (135-145); TOTAL PROTEIN 7.6 GM/DL (6.4-8.2)
[2020-06-01 15:10] LABS: BASOPHILS % (AUTO) 0 % (0-10); EOSINOPHILS # (AUTO) 0.1 10^3/uL (0.0-0.3); EOSINOPHILS % (AUTO) 1 % (0-10); HEMATOCRIT 40 % (35-52); HEMOGLOBIN 12.7 G/DL (11.5-16.0); LYMPHOCYTES # (AUTO) 0.4 X 10^3 (1.0-4.0); LYMPHOCYTES % (AUTO) 8 % (12-44); MEAN CORPUSCULAR HEMOGLOBIN 30 PG (25-34); MEAN CORPUSCULAR HGB CONC 32 G/DL (32-36); MEAN CORPUSCULAR VOLUME 93 FL (80-99); MEAN PLATELET VOLUME 10.8 FL (7.4-10.4); MONOCYTES # (AUTO) 0.4 X 10^3 (0.0-1.0); MONOCYTES % (AUTO) 7 % (0-12); NEUTROPHILS # (AUTO) 4.6 X 10^3 (1.8-7.8); NEUTROPHILS % (AUTO) 84 % (42-75); PLATELET COUNT 209 10^3/uL (130-400); WHITE BLOOD COUNT 5.5 10^3/uL (4.3-11.0)
[2020-06-01 15:33] LABS: ALANINE AMINOTRANSFERASE < 6 U/L (0-55); ALBUMIN 3.9 GM/DL (3.2-4.5); ALKALINE PHOSPHATASE 169 U/L (40-136); BILIRUBIN,TOTAL 0.5 MG/DL (0.1-1.0); BUN/CREATININE RATIO 21; CARBON DIOXIDE 27 MMOL/L (21-32); CHLORIDE 104 MMOL/L (98-107); CREATININE SERUM 0.73 MG/DL (0.60-1.30); GFR ESTIMATED > 60; GLUCOSE 88 MG/DL (70-105); POTASSIUM 4.6 MMOL/L (3.6-5.0); SODIUM 139 MMOL/L (135-145); TOTAL PROTEIN 7.1 GM/DL (6.4-8.2)
[2020-07-13 14:05] LABS: BASOPHILS % (AUTO) 1 % (0-10); EOSINOPHILS # (AUTO) 0.1 10^3/uL (0.0-0.3); EOSINOPHILS % (AUTO) 2 % (0-10); HEMATOCRIT 42 % (35-52); HEMOGLOBIN 13.3 g/dL (11.5-16.0); LYMPHOCYTES # (AUTO) 0.3 10^3/uL (1.0-4.0); LYMPHOCYTES % (AUTO) 8 % (12-44); MEAN CORPUSCULAR HEMOGLOBIN 31 pg (25-34); MEAN CORPUSCULAR HGB CONC 32 g/dL (32-36); MEAN CORPUSCULAR VOLUME 96 fL (80-99); MEAN PLATELET VOLUME 10.8 fL (9.0-12.2); MONOCYTES # (AUTO) 0.3 10^3/uL (0.0-1.0); MONOCYTES % (AUTO) 6 % (0-12); NEUTROPHILS # (AUTO) 3.3 10^3/uL (1.8-7.8); NEUTROPHILS % (AUTO) 83 % (42-75); PLATELET COUNT 111 10^3/uL (130-400)
[2020-07-13 14:24] LABS: ALANINE AMINOTRANSFERASE < 6 U/L (0-55); ALBUMIN 3.9 GM/DL (3.2-4.5); ALKALINE PHOSPHATASE 209 U/L (40-136); BILIRUBIN,TOTAL 0.5 MG/DL (0.1-1.0); BUN/CREATININE RATIO 15; CALCIUM 9.7 MG/DL (8.5-10.1); CARBON DIOXIDE 28 MMOL/L (21-32); CHLORIDE 105 MMOL/L (98-107); CREATININE SERUM 0.82 MG/DL (0.60-1.30); GFR ESTIMATED > 60; GLUCOSE 80 MG/DL (70-105); POTASSIUM 4.2 MMOL/L (3.6-5.0); SODIUM 141 MMOL/L (135-145); TOTAL PROTEIN 6.7 GM/DL (6.4-8.2)
== END 2020-07-14 | disposition home or self-care (01) ==
LOC: ONC 12:52
PROVIDERS: ATTEND Internal Medicine Hematology & Oncology
DX: D37.6 Neoplasm of uncertain behavior of liver, gallbladder and bile ducts (principal); E11.9 Type 2 diabetes mellitus without complications; K59.00 Constipation, unspecified; E66.9 Obesity, unspecified; Z90.710 Acquired absence of both cervix and uterus; Z98.1 Arthrodesis status
CPT/HCPCS: 80053; 82105; 82378; 85025; 86301; 86304; G0463; 99213

== ENCOUNTER → 2020-08-17 | Outpatient (CLI) | payer MEDICAID ==
[~2020-08-17] MED LIST changes: +BARIUM SUSPENSION 2.1% (VANILLA SILQ) 450 ML PO ONE; +HOLD METFORMIN - RECEIVED CONTRAST 20 ML VIAL IV SCH; +IOHEXOL 350 MG/ML 100 ML (OMNIPAQUE 350) VIAL IV ONE; +NS 100 ML (IVPB) BAG IV ONE
--- NOTE | 2020-08-17 10:57 | Diagnostic Imaging Report ---
PROCEDURE: CT chest, abdomen, and pelvis with contrast. TECHNIQUE: Multiple contiguous axial images were obtained through the chest, abdomen, and pelvis after the administration of intravenous contrast. Auto Exposure Controls were utilized during the CT exam to meet ALARA standards for radiation dose reduction. INDICATION: Liver neoplasm. COMPARISON: Correlation is made with the PET/CT study from 04/19/[address] abdomen and pelvis from 03/28/2020. FINDINGS: CT CHEST: No axillary lymphadenopathy is detected. No mediastinal or hilar lymphadenopathy is detected. No pericardial or pleural fluid is identified. The pulmonary parenchymal evaluation is without evidence of infiltrate, nodule, or mass. IMPRESSION: Unremarkable CT of the chest. CT ABDOMEN AND PELVIS: There has been interval development of numerous low density but solid appearing masses throughout both lobes of the liver, consistent with worsening metastatic disease. The dominant multilobulated low-density mass in the posterior right lobe of the liver is again noted but now there are innumerable rounded masses within the right and left lobes that were not present on the prior exam. The largest solitary new lesion is in the right lobe measuring approximately 5.4 x 3.1 cm. The gallbladder is surgically absent. No biliary ductal dilatation is seen. The pancreas appears stable. The spleen is enlarged to 20 cm. The right adrenal gland is unremarkable. There is a large fat-containing mass of the left adrenal gland measuring 3.2 cm, consistent with a myelolipoma. The kidneys are unremarkable. The aorta is nonaneurysmal. No central retroperitoneal or mesenteric lymphadenopathy is seen. There are postop changes from gastric bypass surgery. The small and large bowel loops are of normal caliber. No obstruction is seen. There is trace free fluid in the pelvis. The bladder is decompressed. The uterus appears to be surgically absent. No definite pelvic lymphadenopathy is identified. There are post surgical changes of posterior instrumented fusion in the lower lumbosacral spine. IMPRESSION: 1. Development of innumerable low density but solid appearing masses throughout the liver, consistent with worsening hepatic metastatic disease. The dominant mass in the right lobe posteriorly is again seen and similar in appearance. 2. Splenomegaly. 3. No abdominal or pelvic lymphadenopathy is identified. 4. Fat-containing left adrenal mass, consistent with myelolipoma. Dictated by: Dictated on workstation # [id number]
== END ==
LOC: RAD 09:02
PROVIDERS: ATTEND Internal Medicine Hematology & Oncology
DX: D37.6 Neoplasm of uncertain behavior of liver, gallbladder and bile ducts (principal)
CPT/HCPCS: 71260; 74177

== ENCOUNTER → 2020-09-13 | Outpatient (CLI) | payer MEDICAID ==
[~2020-09-13] MED LIST changes: -BARIUM SUSPENSION 2.1% (VANILLA SILQ) 450 ML PO ONE; -HOLD METFORMIN - RECEIVED CONTRAST 20 ML VIAL IV SCH; -IOHEXOL 350 MG/ML 100 ML (OMNIPAQUE 350) VIAL IV ONE; -NS 100 ML (IVPB) BAG IV ONE
--- NOTE | 2020-09-13 16:22 | Diagnostic Imaging Report ---
INDICATION: Elbow pain after fall. TECHNIQUE: Anterior and posterior whole body planar images were obtained after administration of 25.3 mCi of technetium 99m MDP. FINDINGS: There is some slight increased uptake in the distal right humerus. Otherwise, there is normal uptake of isotope throughout the remainder of the axial and appendicular skeleton. There is physiologic uptake within the kidneys bilaterally with excretion into the urinary bladder. IMPRESSION: Nonspecific uptake in the distal right humerus. In light of the recent trauma, this likely reflects an occult fracture although infection or less likely a neoplastic process cannot be entirely excluded. Recommend clinical correlation and, if warranted, followup with MRI. Dictated by: Dictated on workstation # [id number]
== END ==
LOC: CARD 12:00
PROVIDERS: ATTEND Internal Medicine Hematology & Oncology
DX: M25.521 Pain in right elbow (principal); D37.6 Neoplasm of uncertain behavior of liver, gallbladder and bile ducts; W19.XXXA Unspecified fall, initial encounter
CPT/HCPCS: 78306; A9503

== ENCOUNTER → 2020-09-26 | Outpatient (CLI) | payer MEDICAID ==
[~2020-09-26] MED LIST changes: +GADOBUTROL 10 MMOL/10 ML (GADAVIST) VIAL IV ONE
--- NOTE | 2020-09-26 11:03 | Diagnostic Imaging Report ---
EXAMINATION: Magnetic resonance imaging of the right elbow without contrast. DATE: September 26, 2020. COMPARISON: None. HISTORY: 50-year-old female, bone lesion of the distal humerus. History of liver malignancy. TECHNIQUE: Magnetic Resonance Imaging sequences were performed of the elbow without and with intravenous contrast. FINDINGS: There is a destructive avidly enhancing lesion centered at the level of the distal humeral metadiaphysis involving the intramedullary cavity with cortical destruction and associated soft tissue mass which measures approximately 3.5 x 3.0 x 2.6 cm in size. The mass extends to the posterior fascial plane of the brachialis muscle, perhaps best illustrated on axial T1 sequence image 15. The abnormal soft tissue extension of the mass also extends posterior to the humerus as well illustrated on axial post contrast image 15. There is linear type edema and enhancement involving the distal triceps tendon and brachialis muscle. There is no additional identified bone lesion in the included field of view. There is no pathologic fracture. There is marrow edema adjacent to the bone lesion. There is a small elbow joint effusion. The distal triceps tendon, brachialis tendon, and biceps tendons are intact. The proximal common flexor and common extensor tendons are intact. There is no clearly identified discrete tear involving the structures of the medial or lateral ulnar collateral ligament complexes. IMPRESSION: Aggressive destructive bone lesion involving the right distal humeral metadiaphysis with associated soft tissue extension, consistent with malignancy. Primary differential diagnostic considerations would include bone metastasis, primary bone malignancy, or myeloma. There is no pathologic fracture. There is edema and enhancement involving the brachialis muscle and triceps muscle with tumor involvement of the muscles not able to be excluded on this study. Dictated by: Dictated on workstation # [id number]
== END ==
LOC: RAD 09:00
PROVIDERS: ATTEND Internal Medicine Hematology & Oncology
DX: M89.8X2 Other specified disorders of bone, upper arm (principal); R93.89 Abnormal findings on diagnostic imaging of other specified body structures
CPT/HCPCS: 73220

== ENCOUNTER → 2020-09-29 | Outpatient (CLI) | payer MEDICAID ==
--- NOTE | 2020-09-29 16:52 | Diagnostic Imaging Report ---
CLINICAL INDICATION: Patient has been having headaches. EXAM: MRI of the brain performed without and with 9 cc of Gadavist IV contrast. Sequences include axial DWI, ADC map, axial gradient echo, axial T2, axial FLAIR, axial T1, axial T1 post IV contrast, coronal T1 fat-sat post IV contrast, and sagittal T1 post IV contrast. COMPARISON: None. FINDINGS: There is no evidence of acute cerebral infarct, intracranial hemorrhage, or gross mass effect. There is no abnormal IV contrast enhancement. The brain parenchymal volume appears appropriate for patient's age. There are multiple focal areas of high T2 signal white matter changes involving the white matter of both cerebral hemispheres, mostly seen in the frontal regions. There is normal martin-white matter distinction. There is no significant midline shift or herniation. The lime of [place] Guzman vascular structures show no gross abnormality as visualized. The pituitary gland, sella, and suprasellar regions are unremarkable as visualized. There is no evidence of hydrocephalus. The basal cisterns are unremarkable. The skull, extracranial soft tissue, and orbits are unremarkable. The paranasal sinuses are unremarkable. There is minimal fluid in both mastoid air cells. IMPRESSION: 1: There is no evidence of acute intracranial process. There is no abnormal IV contrast enhancement or metastatic disease. 2: There are multiple small focal areas of high T2 signal white matter changes involving both cerebral hemispheres predominantly involving the frontal regions. This is suspected to represent chronic small vessel ischemic disease. The bilateral frontal predominance may also be seen in patients with chronic migraine headaches. 3: There is a small amount of fluid in both mastoid air cells. Dictated by: Dictated on workstation # [id number]
== END ==
LOC: RAD 15:30
PROVIDERS: ATTEND Nurse Practitioner Adult Health
DX: R42 Dizziness and giddiness (principal); R90.82 White matter disease, unspecified
CPT/HCPCS: 70553

== ENCOUNTER 2020-10-18 12:54 | Outpatient (RCR) | payer MEDICAID ==
[2020-08-17 08:59] LABS: BASOPHILS % (AUTO) 0 % (0-10); EOSINOPHILS # (AUTO) 0.1 10^3/uL (0.0-0.3); EOSINOPHILS % (AUTO) 1 % (0-10); HEMATOCRIT 40 % (35-52); HEMOGLOBIN 12.7 g/dL (11.5-16.0); LYMPHOCYTES # (AUTO) 0.4 10^3/uL (1.0-4.0); LYMPHOCYTES % (AUTO) 10 % (12-44); MEAN CORPUSCULAR HEMOGLOBIN 30 pg (25-34); MEAN CORPUSCULAR HGB CONC 32 g/dL (32-36); MEAN CORPUSCULAR VOLUME 96 fL (80-99); MEAN PLATELET VOLUME 10.3 fL (9.0-12.2); MONOCYTES # (AUTO) 0.3 10^3/uL (0.0-1.0); MONOCYTES % (AUTO) 7 % (0-12); NEUTROPHILS # (AUTO) 3.2 10^3/uL (1.8-7.8); NEUTROPHILS % (AUTO) 81 % (42-75); PLATELET COUNT 129 10^3/uL (130-400); WHITE BLOOD COUNT 3.9 10^3/uL (4.3-11.0)
[2020-08-17 09:21] LABS: ALANINE AMINOTRANSFERASE < 6 U/L (0-55); ALBUMIN 3.6 GM/DL (3.2-4.5); ALKALINE PHOSPHATASE 347 U/L (40-136); BILIRUBIN,TOTAL 0.7 MG/DL (0.1-1.0); BUN/CREATININE RATIO 12; CALCIUM 10.1 MG/DL (8.5-10.1); CARBON DIOXIDE 27 MMOL/L (21-32); CHLORIDE 102 MMOL/L (98-107); CREATININE SERUM 0.78 MG/DL (0.60-1.30); GFR ESTIMATED > 60; GLUCOSE 91 MG/DL (70-105); SODIUM 141 MMOL/L (135-145); TOTAL PROTEIN 6.9 GM/DL (6.4-8.2)
[2020-09-01 13:13] LABS: BASOPHILS % (AUTO) 1 % (0-10); EOSINOPHILS # (AUTO) 0.1 10^3/uL (0.0-0.3); EOSINOPHILS % (AUTO) 1 % (0-10); HEMATOCRIT 46 % (35-52); HEMOGLOBIN 14.4 g/dL (11.5-16.0); LYMPHOCYTES # (AUTO) 0.6 10^3/uL (1.0-4.0); LYMPHOCYTES % (AUTO) 10 % (12-44); MEAN CORPUSCULAR HEMOGLOBIN 31 pg (25-34); MEAN CORPUSCULAR HGB CONC 31 g/dL (32-36); MEAN CORPUSCULAR VOLUME 98 fL (80-99); MONOCYTES # (AUTO) 0.3 10^3/uL (0.0-1.0); MONOCYTES % (AUTO) 6 % (0-12); NEUTROPHILS # (AUTO) 4.7 10^3/uL (1.8-7.8); NEUTROPHILS % (AUTO) 83 % (42-75); PLATELET COUNT 156 10^3/uL (130-400); WHITE BLOOD COUNT 5.6 10^3/uL (4.3-11.0)
[2020-09-01 13:36] LABS: BUN/CREATININE RATIO 16; CALCIUM 10.1 MG/DL (8.5-10.1); CARBON DIOXIDE 28 MMOL/L (21-32); CHLORIDE 100 MMOL/L (98-107); CREATININE SERUM 0.81 MG/DL (0.60-1.30); GFR ESTIMATED > 60; GLUCOSE 94 MG/DL (70-105); POTASSIUM 4.2 MMOL/L (3.6-5.0); SODIUM 139 MMOL/L (135-145)
[2020-09-08 11:02] LABS: MEAN CORPUSCULAR VOLUME 99 fL (80-99)
[2020-09-08 11:04] LABS: BASOPHILS % (AUTO) 1 % (0-10); EOSINOPHILS % (AUTO) 1 % (0-10); HEMATOCRIT 40 % (35-52); HEMOGLOBIN 12.7 g/dL (11.5-16.0); LYMPHOCYTES # (AUTO) 0.4 10^3/uL (1.0-4.0); LYMPHOCYTES % (AUTO) 11 % (12-44); MEAN CORPUSCULAR HEMOGLOBIN 31 pg (25-34); MEAN CORPUSCULAR HGB CONC 31 g/dL (32-36); MEAN PLATELET VOLUME 10.8 fL (9.0-12.2); MONOCYTES # (AUTO) 0.2 10^3/uL (0.0-1.0); MONOCYTES % (AUTO) 5 % (0-12); NEUTROPHILS # (AUTO) 3.1 10^3/uL (1.8-7.8); NEUTROPHILS % (AUTO) 83 % (42-75); PLATELET COUNT 107 10^3/uL (130-400); WHITE BLOOD COUNT 3.7 10^3/uL (4.3-11.0)
[2020-09-08 11:20] LABS: BUN/CREATININE RATIO 16; CALCIUM 9.7 MG/DL (8.5-10.1); CARBON DIOXIDE 25 MMOL/L (21-32); CHLORIDE 105 MMOL/L (98-107); CREATININE SERUM 0.77 MG/DL (0.60-1.30); GFR ESTIMATED > 60; GLUCOSE 110 MG/DL (70-105); POTASSIUM 4.5 MMOL/L (3.6-5.0); SODIUM 139 MMOL/L (135-145)
[2020-09-19 10:11] LABS: HEMOGLOBIN 13.2 g/dL (11.5-16.0)
[2020-09-19 10:13] LABS: BASOPHILS % (AUTO) 0 % (0-10); EOSINOPHILS # (AUTO) 0.1 10^3/uL (0.0-0.3); EOSINOPHILS % (AUTO) 2 % (0-10); HEMATOCRIT 42 % (35-52); LYMPHOCYTES # (AUTO) 0.5 10^3/uL (1.0-4.0); LYMPHOCYTES % (AUTO) 11 % (12-44); MEAN CORPUSCULAR HEMOGLOBIN 32 pg (25-34); MEAN CORPUSCULAR HGB CONC 32 g/dL (32-36); MEAN CORPUSCULAR VOLUME 100 fL (80-99); MEAN PLATELET VOLUME 11.5 fL (9.0-12.2); MONOCYTES # (AUTO) 0.2 10^3/uL (0.0-1.0); MONOCYTES % (AUTO) 5 % (0-12); NEUTROPHILS # (AUTO) 3.8 10^3/uL (1.8-7.8); NEUTROPHILS % (AUTO) 83 % (42-75); PLATELET COUNT 85 10^3/uL (130-400); WHITE BLOOD COUNT 4.5 10^3/uL (4.3-11.0)
[2020-09-19 10:32] LABS: ALANINE AMINOTRANSFERASE < 6 U/L (0-55); ALBUMIN 3.7 GM/DL (3.2-4.5); ALKALINE PHOSPHATASE 262 U/L (40-136); BILIRUBIN,TOTAL 0.8 MG/DL (0.1-1.0); BUN/CREATININE RATIO 14; CARBON DIOXIDE 26 MMOL/L (21-32); CHLORIDE 104 MMOL/L (98-107); GFR ESTIMATED > 60; GLUCOSE 91 MG/DL (70-105); POTASSIUM 3.8 MMOL/L (3.6-5.0); SODIUM 142 MMOL/L (135-145); TOTAL PROTEIN 6.7 GM/DL (6.4-8.2)
[2020-09-27 13:13] LABS: BASOPHILS % (AUTO) 0 % (0-10); NEUTROPHILS # (AUTO) 2.6 10^3/uL (1.8-7.8); PLATELET COUNT 70 10^3/uL (130-400)
[2020-09-27 13:15] LABS: EOSINOPHILS % (AUTO) 1 % (0-10); HEMATOCRIT 41 % (35-52); HEMOGLOBIN 13.1 g/dL (11.5-16.0); LYMPHOCYTES # (AUTO) 0.3 10^3/uL (1.0-4.0); LYMPHOCYTES % (AUTO) 10 % (12-44); MEAN CORPUSCULAR HEMOGLOBIN 32 pg (25-34); MEAN CORPUSCULAR HGB CONC 32 g/dL (32-36); MEAN CORPUSCULAR VOLUME 100 fL (80-99); MEAN PLATELET VOLUME 11.7 fL (9.0-12.2); MONOCYTES # (AUTO) 0.2 10^3/uL (0.0-1.0); MONOCYTES % (AUTO) 7 % (0-12); NEUTROPHILS % (AUTO) 82 % (42-75); WHITE BLOOD COUNT 3.2 10^3/uL (4.3-11.0)
[2020-10-11 14:33] LABS: BASOPHILS % (AUTO) 0 % (0-10); HEMOGLOBIN 13.6 g/dL (11.5-16.0); LYMPHOCYTES % (AUTO) 8 % (12-44); MEAN PLATELET VOLUME 11.2 fL (9.0-12.2)
[2020-10-11 14:35] LABS: EOSINOPHILS % (AUTO) 1 % (0-10); HEMATOCRIT 43 % (35-52); LYMPHOCYTES # (AUTO) 0.4 10^3/uL (1.0-4.0); MEAN CORPUSCULAR HEMOGLOBIN 32 pg (25-34); MEAN CORPUSCULAR HGB CONC 31 g/dL (32-36); MEAN CORPUSCULAR VOLUME 101 fL (80-99); MONOCYTES # (AUTO) 0.3 10^3/uL (0.0-1.0); MONOCYTES % (AUTO) 7 % (0-12); NEUTROPHILS # (AUTO) 3.8 10^3/uL (1.8-7.8); NEUTROPHILS % (AUTO) 84 % (42-75); PLATELET COUNT 125 10^3/uL (130-400); WHITE BLOOD COUNT 4.5 10^3/uL (4.3-11.0)
[2020-10-11 14:52] LABS: ALANINE AMINOTRANSFERASE < 6 U/L (0-55); ALBUMIN 3.8 GM/DL (3.2-4.5); ALKALINE PHOSPHATASE 452 U/L (40-136); BUN/CREATININE RATIO 14; CARBON DIOXIDE 29 MMOL/L (21-32); CHLORIDE 103 MMOL/L (98-107); CREATININE SERUM 0.76 MG/DL (0.60-1.30); GFR ESTIMATED > 60; GLUCOSE 90 MG/DL (70-105); POTASSIUM 4.5 MMOL/L (3.6-5.0); SODIUM 138 MMOL/L (135-145); TOTAL PROTEIN 7.2 GM/DL (6.4-8.2)
[~2020-10-18 12:54] MED LIST changes: -GADOBUTROL 10 MMOL/10 ML (GADAVIST) VIAL IV ONE
[2020-10-18 13:05] LABS: BASOPHILS % (AUTO) 1 % (0-10); HEMOGLOBIN 13.5 g/dL (11.5-16.0); MEAN CORPUSCULAR VOLUME 102 fL (80-99)
[2020-10-18 13:07] LABS: EOSINOPHILS % (AUTO) 1 % (0-10); HEMATOCRIT 44 % (35-52); LYMPHOCYTES # (AUTO) 0.4 10^3/uL (1.0-4.0); LYMPHOCYTES % (AUTO) 10 % (12-44); MEAN CORPUSCULAR HEMOGLOBIN 32 pg (25-34); MEAN CORPUSCULAR HGB CONC 31 g/dL (32-36); MEAN PLATELET VOLUME 11.5 fL (9.0-12.2); MONOCYTES # (AUTO) 0.3 10^3/uL (0.0-1.0); MONOCYTES % (AUTO) 8 % (0-12); NEUTROPHILS # (AUTO) 2.7 10^3/uL (1.8-7.8); NEUTROPHILS % (AUTO) 80 % (42-75); PLATELET COUNT 95 10^3/uL (130-400); WHITE BLOOD COUNT 3.4 10^3/uL (4.3-11.0)
[2020-10-18 14:01] LABS: ALANINE AMINOTRANSFERASE < 6 U/L (0-55); ALBUMIN 3.5 GM/DL (3.2-4.5); ALKALINE PHOSPHATASE 499 U/L (40-136); BILIRUBIN,TOTAL 0.8 MG/DL (0.1-1.0); BUN/CREATININE RATIO 17; CALCIUM 9.8 MG/DL (8.5-10.1); CARBON DIOXIDE 32 MMOL/L (21-32); CHLORIDE 100 MMOL/L (98-107); CREATININE SERUM 0.72 MG/DL (0.60-1.30); GFR ESTIMATED > 60; GLUCOSE 99 MG/DL (70-105); POTASSIUM 4.1 MMOL/L (3.6-5.0); SODIUM 137 MMOL/L (135-145); TOTAL PROTEIN 6.8 GM/DL (6.4-8.2)
== END 2020-10-24 15:07 | disposition home or self-care (01) ==
LOC: ONC 12:54
PROVIDERS: ATTEND Internal Medicine Hematology & Oncology
DX: D37.6 Neoplasm of uncertain behavior of liver, gallbladder and bile ducts (principal); E11.9 Type 2 diabetes mellitus without complications; K59.00 Constipation, unspecified; E66.9 Obesity, unspecified; Z90.710 Acquired absence of both cervix and uterus; Z98.1 Arthrodesis status
CPT/HCPCS: 77290; 77295; 77300; 77334; 77336; 77417; 77470; 80048; 80053; 82105; 85025; 86301; 99204; 99213; 99214

== ENCOUNTER 2020-11-29 12:35 | Outpatient (RCR) | payer MEDICAID ==
[2020-10-24 16:08] LABS: BASOPHILS % (AUTO) 0 % (0-10); EOSINOPHILS % (AUTO) 0 % (0-10); HEMATOCRIT 41 % (35-52); LYMPHOCYTES # (AUTO) 0.5 10^3/uL (1.0-4.0); LYMPHOCYTES % (AUTO) 11 % (12-44); MEAN CORPUSCULAR HEMOGLOBIN 32 pg (25-34); MEAN CORPUSCULAR HGB CONC 32 g/dL (32-36); MEAN CORPUSCULAR VOLUME 101 fL (80-99); MEAN PLATELET VOLUME 10.8 fL (9.0-12.2); MONOCYTES # (AUTO) 0.3 10^3/uL (0.0-1.0); MONOCYTES % (AUTO) 6 % (0-12); NEUTROPHILS # (AUTO) 3.7 10^3/uL (1.8-7.8); NEUTROPHILS % (AUTO) 81 % (42-75); PLATELET COUNT 115 10^3/uL (130-400); WHITE BLOOD COUNT 4.5 10^3/uL (4.3-11.0)
[2020-10-24 16:54] LABS: ALANINE AMINOTRANSFERASE < 6 U/L (0-55); ALBUMIN 3.4 GM/DL (3.2-4.5); ALKALINE PHOSPHATASE 395 U/L (40-136); BILIRUBIN,TOTAL 0.8 MG/DL (0.1-1.0); BUN/CREATININE RATIO 19; CALCIUM 9.6 MG/DL (8.5-10.1); CARBON DIOXIDE 26 MMOL/L (21-32); CHLORIDE 103 MMOL/L (98-107); CREATININE SERUM 0.75 MG/DL (0.60-1.30); GFR ESTIMATED > 60; GLUCOSE 97 MG/DL (70-105); POTASSIUM 4.1 MMOL/L (3.6-5.0); SODIUM 139 MMOL/L (135-145); TOTAL PROTEIN 6.6 GM/DL (6.4-8.2)
[2020-11-01 13:18] LABS: BASOPHILS % (AUTO) 0 % (0-10); EOSINOPHILS % (AUTO) 1 % (0-10); HEMATOCRIT 41 % (35-52); HEMOGLOBIN 13.1 g/dL (11.5-16.0); LYMPHOCYTES # (AUTO) 0.5 10^3/uL (1.0-4.0); LYMPHOCYTES % (AUTO) 12 % (12-44); MEAN CORPUSCULAR HEMOGLOBIN 33 pg (25-34); MEAN CORPUSCULAR HGB CONC 32 g/dL (32-36); MEAN CORPUSCULAR VOLUME 103 fL (80-99); MEAN PLATELET VOLUME 11.2 fL (9.0-12.2); MONOCYTES # (AUTO) 0.3 10^3/uL (0.0-1.0); MONOCYTES % (AUTO) 7 % (0-12); NEUTROPHILS # (AUTO) 3.2 10^3/uL (1.8-7.8); NEUTROPHILS % (AUTO) 80 % (42-75); PLATELET COUNT 96 10^3/uL (130-400)
[2020-11-01 13:46] LABS: ALANINE AMINOTRANSFERASE < 6 U/L (0-55); ALBUMIN 3.4 GM/DL (3.2-4.5); ALKALINE PHOSPHATASE 325 U/L (40-136); BILIRUBIN,TOTAL 0.9 MG/DL (0.1-1.0); BUN/CREATININE RATIO 15; CALCIUM 9.6 MG/DL (8.5-10.1); CARBON DIOXIDE 26 MMOL/L (21-32); CHLORIDE 105 MMOL/L (98-107); CREATININE SERUM 0.74 MG/DL (0.60-1.30); GFR ESTIMATED > 60; GLUCOSE 104 MG/DL (70-105); POTASSIUM 3.7 MMOL/L (3.6-5.0); SODIUM 139 MMOL/L (135-145); TOTAL PROTEIN 6.4 GM/DL (6.4-8.2)
[2020-11-09 14:35] LABS: BASOPHILS % (AUTO) 0 % (0-10); EOSINOPHILS % (AUTO) 1 % (0-10); HEMOGLOBIN 12.6 g/dL (11.5-16.0); MEAN CORPUSCULAR VOLUME 104 fL (80-99)
[2020-11-09 14:37] LABS: HEMATOCRIT 40 % (35-52); LYMPHOCYTES # (AUTO) 0.4 10^3/uL (1.0-4.0); LYMPHOCYTES % (AUTO) 11 % (12-44); MEAN CORPUSCULAR HEMOGLOBIN 33 pg (25-34); MEAN CORPUSCULAR HGB CONC 32 g/dL (32-36); MEAN PLATELET VOLUME 11.5 fL (9.0-12.2); MONOCYTES # (AUTO) 0.3 10^3/uL (0.0-1.0); MONOCYTES % (AUTO) 9 % (0-12); NEUTROPHILS # (AUTO) 2.7 10^3/uL (1.8-7.8); NEUTROPHILS % (AUTO) 78 % (42-75); PLATELET COUNT 69 10^3/uL (130-400); WHITE BLOOD COUNT 3.5 10^3/uL (4.3-11.0)
[2020-11-09 14:53] LABS: ALANINE AMINOTRANSFERASE < 6 U/L (0-55); ALBUMIN 3.2 GM/DL (3.2-4.5); ALKALINE PHOSPHATASE 370 U/L (40-136); BUN/CREATININE RATIO 14; CALCIUM 9.3 MG/DL (8.5-10.1); CARBON DIOXIDE 25 MMOL/L (21-32); CHLORIDE 106 MMOL/L (98-107); CREATININE SERUM 0.77 MG/DL (0.60-1.30); GFR ESTIMATED > 60; GLUCOSE 98 MG/DL (70-105); POTASSIUM 3.9 MMOL/L (3.6-5.0); SODIUM 139 MMOL/L (135-145); TOTAL PROTEIN 6.2 GM/DL (6.4-8.2)
[2020-11-21 16:36] LABS: BASOPHILS % (AUTO) 1 % (0-10); EOSINOPHILS % (AUTO) 0 % (0-10); HEMATOCRIT 43 % (35-52); HEMOGLOBIN 13.3 g/dL (11.5-16.0); LYMPHOCYTES # (AUTO) 0.3 10^3/uL (1.0-4.0); LYMPHOCYTES % (AUTO) 8 % (12-44); MEAN CORPUSCULAR HEMOGLOBIN 33 pg (25-34); MEAN CORPUSCULAR HGB CONC 31 g/dL (32-36); MEAN CORPUSCULAR VOLUME 104 fL (80-99); MEAN PLATELET VOLUME 11.8 fL (9.0-12.2); MONOCYTES # (AUTO) 0.4 10^3/uL (0.0-1.0); MONOCYTES % (AUTO) 9 % (0-12); NEUTROPHILS # (AUTO) 3.5 10^3/uL (1.8-7.8); NEUTROPHILS % (AUTO) 83 % (42-75); PLATELET COUNT 102 10^3/uL (130-400); WHITE BLOOD COUNT 4.3 10^3/uL (4.3-11.0)
[2020-11-21 16:42] LABS: ALBUMIN 3.3 GM/DL (3.2-4.5); CHLORIDE 102 MMOL/L (98-107); SODIUM 137 MMOL/L (135-145)
[2020-11-21 16:44] LABS: CALCIUM 9.5 MG/DL (8.5-10.1)
[2020-11-21 16:45] LABS: GLUCOSE 113 MG/DL (70-105); TOTAL PROTEIN 6.7 GM/DL (6.4-8.2)
[2020-11-21 16:46] LABS: CARBON DIOXIDE 26 MMOL/L (21-32)
[2020-11-21 16:47] LABS: BILIRUBIN,TOTAL 1.8 MG/DL (0.1-1.0)
[2020-11-21 16:48] LABS: ALKALINE PHOSPHATASE 547 U/L (40-136); CREATININE SERUM 0.71 MG/DL (0.60-1.30); GFR ESTIMATED > 60; PHOSPHORUS 3.3 MG/DL (2.3-4.7)
[2020-11-21 16:49] LABS: BUN/CREATININE RATIO 21
[2020-11-21 16:51] LABS: ALANINE AMINOTRANSFERASE < 6 U/L (0-55)
[2020-11-29 13:12] LABS: BASOPHILS % (AUTO) 1 % (0-10); EOSINOPHILS % (AUTO) 1 % (0-10); HEMOGLOBIN 14.4 g/dL (11.5-16.0); LYMPHOCYTES # (AUTO) 0.6 10^3/uL (1.0-4.0)
[2020-11-29 13:14] LABS: HEMATOCRIT 45 % (35-52); LYMPHOCYTES % (AUTO) 9 % (12-44); MEAN CORPUSCULAR HEMOGLOBIN 33 pg (25-34); MEAN CORPUSCULAR HGB CONC 32 g/dL (32-36); MEAN CORPUSCULAR VOLUME 103 fL (80-99); MEAN PLATELET VOLUME 11.3 fL (9.0-12.2); MONOCYTES # (AUTO) 0.4 10^3/uL (0.0-1.0); MONOCYTES % (AUTO) 6 % (0-12); NEUTROPHILS # (AUTO) 5.1 10^3/uL (1.8-7.8); NEUTROPHILS % (AUTO) 83 % (42-75); PLATELET COUNT 115 10^3/uL (130-400); WHITE BLOOD COUNT 6.2 10^3/uL (4.3-11.0)
[2020-11-29 13:34] LABS: BUN/CREATININE RATIO 13; CALCIUM 10.2 MG/DL (8.5-10.1); CARBON DIOXIDE 22 MMOL/L (21-32); CHLORIDE 103 MMOL/L (98-107); CREATININE SERUM 0.88 MG/DL (0.60-1.30); GFR ESTIMATED > 60; GLUCOSE 108 MG/DL (70-105); PHOSPHORUS 6.5 MG/DL (2.3-4.7); POTASSIUM 3.7 MMOL/L (3.6-5.0); SODIUM 140 MMOL/L (135-145)
[2020-11-29 13:53] LABS: ALANINE AMINOTRANSFERASE < 6 U/L (0-55); ALBUMIN 3.2 GM/DL (3.2-4.5); ALKALINE PHOSPHATASE 542 U/L (40-136); BILIRUBIN,TOTAL 2.4 MG/DL (0.1-1.0); TOTAL PROTEIN 6.4 GM/DL (6.4-8.2)
== END 2021-01-22 | disposition home or self-care (01) ==
LOC: ONC 12:35
PROVIDERS: ATTEND Internal Medicine Hematology & Oncology
DX: D37.6 Neoplasm of uncertain behavior of liver, gallbladder and bile ducts (principal); E11.9 Type 2 diabetes mellitus without complications; E66.9 Obesity, unspecified; D69.6 Thrombocytopenia, unspecified; K64.9 Unspecified hemorrhoids; K62.89 Other specified diseases of anus and rectum; L98.9 Disorder of the skin and subcutaneous tissue, unspecified; R51.9 Headache, unspecified; R42 Dizziness and giddiness; Z90.710 Acquired absence of both cervix and uterus; Z92.3 Personal history of irradiation; Z98.1 Arthrodesis status
CPT/HCPCS: 80053; 85025; G0463; 82105; 84100; 86301; 99213